=== PATIENT | female | born 1970 | race Caucasian/White ===

== ENCOUNTER 2020-03-24 20:19 | Inpatient (IN) | payer MEDICAID, OTHER ==
[~2020-03-24] VITALS: Ht 162.6 cm; Wt 110.2 kg
[2020-03-24] MEDS ORDERED: FUROSEMIDE 20 MG/2 ML VIAL IV ONE (21:00)
[2020-03-25 00:17] LABS: Basophils # (auto) 0.1 10 ^3/uL (0-0.2); Eosinophils # (auto) 0 10 ^3/uL (0-0.8); Eosinophils % (auto) 0.7 % (0.0-7.0); Hematocrit 30.5 % (36.0-46.0); Lymphocytes # (auto) 1.4 10 ^3/uL (0.4-5.4); Lymphocytes % (auto) 23.7 % (10.0-50.0); Mean Corpuscular Hemoglobin 18.3 pg (28.0-32.0); Mean Corpuscular Hgb Conc. 29.6 g/dL (32.0-36.0); Mean Corpuscular Volume 61.8 fL (80.0-100.0); Monocytes # (auto) 0.7 10 ^3/uL (0-1.3); Neutrophils # (auto) 3.8 10 ^3/uL (1.6-8.6); Neutrophils % (auto) 63.6 % (37.0-80.0); Nucleated Red Blood Cells % 0.3 %; Red Blood Cells 4.94 10^6/uL (4.0-5.20)
[2020-03-25 00:19] LABS: Red Cell Distribution Width 31.2 % (11.8-14.3)
[2020-03-25 00:35] LABS: Albumin 3.3 g/dL (3.4-5.0); Anion Gap 8 (5-15); Blood Urea Nitrogen 15 mg/dL (7-18); Calcium 8.8 mg/dL (8.5-10.1); Carbon Dioxide 28 mmol/L (21-32); Chloride 101 mmol/L (98-107); Glucose 157 mg/dL (74-106); Potassium 3.9 mmol/L (3.5-5.1); Sodium 137 mmol/L (136-145)
[2020-03-25 00:37] LABS: Alanine Aminotransferase 28 U/L (13-56); Aspartate Aminotransferase 23 U/L (15-37); BUN/Creatinine Ratio 17.2; GFR African American 88 mL/min; GFR Non-African American 73 mL/min
[2020-03-25 00:41] LABS: Alkaline Phosphatase 139 U/L (45-117); Bilirubin, Total 0.4 mg/dL (0.2-1.0); Total Protein 7.7 g/dL (6.4-8.2)
[2020-03-25 00:47] LABS: INR 0.93 (0.9-1.15); Partial Thromboplastin Time 22.3 sec (23.0-31.2)
[2020-03-25] MEDS ORDERED: MORPHINE SULFATE INJECTION 2 MG/ML SYRG IV PRN (03:00)
[2020-03-25] MEDS ORDERED: ONDANSETRON HCL 4 MG/2 ML VIAL IV PRN (03:00)
[2020-03-25] MEDS ORDERED: DEXTROSE (50%) 50ML SYRG IV PRN (03:00)
[2020-03-25] MEDS ORDERED: CARVEDILOL 12.5 MG TAB PO ONE (03:00)
[2020-03-25] MEDS ORDERED: TEMAZEPAM 15 MG CAP PO PRN (03:00)
[2020-03-25] MEDS ORDERED: NITROGLYCERIN 0.4 MG SL TAB SL PRN (03:00)
[2020-03-25] MEDS: ACETAMINOPHEN 325 MG TAB PO PRN ×2 (03:37→21:37)
[2020-03-25 05:08] LABS: Urine Bacteria FEW /hpf (None Seen); Urine Blood Negative /uL (Negative); Urine Mucus FEW (None Seen); Urine Specific Gravity 1.016 (1.001-1.035); Urine WBC 1 /hpf (0 - 5)
[2020-03-25] MEDS: InsuLIN REG 1unit/0.01ml Soln (100units/ml) SC SCH ×4 (06:27→21:38)
[2020-03-25] MEDS: ACCU-CHEK COMFORT CURVE STRIP VI SCH ×4 (06:30→21:38)
[2020-03-25] MEDS: FUROSEMIDE 40 MG TAB PO SCH ×2 (06:32→18:06)
[2020-03-25] MEDS: FAMOTIDINE 20 MG TAB PO SCH ×2 (10:49→21:37)
[2020-03-25] MEDS: CARVEDILOL 12.5 MG TAB PO SCH ×2 (10:49→21:37)
[2020-03-25] MEDS: ENOXAPARIN SOD 40 MG/0.4 ML SYRINGE SC SCH (10:49)
[2020-03-25] MEDS: amLODIPine BESYLATE 5 MG TAB PO SCH (10:49)
[2020-03-25] MEDS: ASPirin 81 mg TAB PO SCH (10:49)
[2020-03-25] MEDS ORDERED: FURO1TAB31 PO (15:34)
[2020-03-25 16:00] VITALS: BP 140/89
[2020-03-25] MEDS: ATORVASTATIN 20 MG TAB PO SCH (21:36)
[2020-03-25 22:00] VITALS: BP 165/89
[2020-03-26] VITALS: BP 142/74
[2020-03-26] MEDS: ACETAMINOPHEN 325 MG TAB PO PRN ×2 (02:42→20:10)
[2020-03-26 05:00] VITALS: BP 152/91
[2020-03-26] MEDS: FUROSEMIDE 40 MG TAB PO SCH (05:57)
[2020-03-26] MEDS: ACCU-CHEK COMFORT CURVE STRIP VI SCH ×4 (05:58→22:22)
[2020-03-26] MEDS: InsuLIN REG 1unit/0.01ml Soln (100units/ml) SC SCH ×4 (05:59→22:25)
[2020-03-26 06:34] LABS: Basophils # (auto) 0 10 ^3/uL (0-0.2); Basophils % (auto) 0.8 % (0.0-2.0); Monocytes # (auto) 0.6 10 ^3/uL (0-1.3); White Blood Cell 4.8 10^3/uL (4.4-10.8)
[2020-03-26 06:36] LABS: INR 0.96 (0.9-1.15); Partial Thromboplastin Time 23.9 sec (23.0-31.2)
[2020-03-26 06:37] LABS: Eosinophils # (auto) 0.1 10 ^3/uL (0-0.8); Eosinophils % (auto) 1.5 % (0.0-7.0); Hematocrit 28.2 % (36.0-46.0); Hemoglobin 8.4 g/dL (12.2-16.2); Lymphocytes % (auto) 20.7 % (10.0-50.0); Mean Corpuscular Hemoglobin 18.6 pg (28.0-32.0); Mean Corpuscular Hgb Conc. 29.8 g/dL (32.0-36.0); Mean Corpuscular Volume 62.3 fL (80.0-100.0); Monocytes % (auto) 11.7 % (0.0-12.0); Neutrophils # (auto) 3.2 10 ^3/uL (1.6-8.6); Neutrophils % (auto) 65.3 % (37.0-80.0); Red Blood Cells 4.52 10^6/uL (4.0-5.20)
[2020-03-26 06:48] LABS: Red Cell Distribution Width 30.1 % (11.8-14.3)
[2020-03-26 07:11] LABS: Calcium 8.3 mg/dL (8.5-10.1); Potassium 4.1 mmol/L (3.5-5.1)
[2020-03-26 07:44] LABS: Albumin 2.9 g/dL (3.4-5.0); BUN/Creatinine Ratio 30.1; Bilirubin, Total 0.5 mg/dL (0.2-1.0); Phosphorus 4.4 mg/dL (2.5-4.90)
[2020-03-26 08:32] VITALS: BP 147/85
[2020-03-26] MEDS: ASPirin 81 mg TAB PO SCH (10:22)
[2020-03-26] MEDS: FAMOTIDINE 20 MG TAB PO SCH ×2 (10:23→22:22)
[2020-03-26] MEDS: amLODIPine BESYLATE 5 MG TAB PO SCH (10:25)
[2020-03-26] MEDS: CARVEDILOL 12.5 MG TAB PO SCH ×2 (10:26→22:21)
[2020-03-26] MEDS: ENOXAPARIN SOD 40 MG/0.4 ML SYRINGE SC SCH (10:26)
[2020-03-26] MEDS ORDERED: hydrALAZINE HCL 20 MG/ML VL IV PRN (10:45)
[2020-03-26] MEDS ORDERED: DEXTROSE (50%) 50ML SYRG IV PRN (10:45)
[2020-03-26 11:00] LABS: Cholesterol 161 mg/dL (< 200)
[2020-03-26 11:03] LABS: HDL Cholesterol 54 mg/dL (40-59); LDL Cholesterol 96 mg/dL (< 100); Triglycerides 84 mg/dL (< 150)
[2020-03-26] MEDS ORDERED: ACCU-CHEK COMFORT CURVE STRIP VI SCH (11:30)
[2020-03-26 11:32] LABS: % Iron Saturation 2.4 % (15-50)
[2020-03-26] MEDS: FERROUS SULFATE 325mg EC TAB PO SCH ×2 (13:57→18:04)
[2020-03-26 16:11] VITALS: BP 151/88
[2020-03-26] MEDS ORDERED: FUROSEMIDE 20 MG/2 ML VIAL IV SCH (18:00)
[2020-03-26] MEDS ORDERED: LOSARTAN POTASSIUM 25 MG TAB PO ONE ×2 (18:15→19:30)
[2020-03-26 22:00] VITALS: BP 141/83
[2020-03-26] MEDS: ISOSORBIDE MONONITRATE IR 20 MG TAB PO SCH (22:21)
[2020-03-26] MEDS: ATORVASTATIN 20 MG TAB PO SCH (22:22)
[2020-03-27 05:00] VITALS: BP 125/78
[2020-03-27] MEDS: ACCU-CHEK COMFORT CURVE STRIP VI SCH ×4 (06:37→22:10)
[2020-03-27] MEDS: InsuLIN REG 1unit/0.01ml Soln (100units/ml) SC SCH ×4 (06:45→22:20)
[2020-03-27 07:52] VITALS: BP 149/76
[2020-03-27] MEDS: FERROUS SULFATE 325mg EC TAB PO SCH ×3 (07:57→17:53)
[2020-03-27] MEDS ORDERED: POTASSIUM CHL 20 Meq TABLET PO SCH (10:00)
[2020-03-27] MEDS: CARVEDILOL 12.5 MG TAB PO SCH ×2 (10:02→22:11)
[2020-03-27] MEDS: ASPirin 81 mg TAB PO SCH (10:02)
[2020-03-27] MEDS: LOSARTAN POTASSIUM 25 MG TAB PO SCH (10:03)
[2020-03-27] MEDS: FAMOTIDINE 20 MG TAB PO SCH ×2 (10:04→22:20)
[2020-03-27] MEDS: ISOSORBIDE MONONITRATE IR 20 MG TAB PO SCH ×2 (10:04→22:11)
[2020-03-27] MEDS: amLODIPine BESYLATE 5 MG TAB PO SCH (10:05)
[2020-03-27] MEDS: ENOXAPARIN SOD 40 MG/0.4 ML SYRINGE SC SCH (10:05)
[2020-03-27 10:51] LABS: BUN/Creatinine Ratio 29.3; Calcium 8.6 mg/dL (8.5-10.1); Magnesium 2.1 mg/dL (1.6-2.6)
[2020-03-27 11:09] LABS: Basophils # (auto) 0.1 10 ^3/uL (0-0.2); Eosinophils # (auto) 0 10 ^3/uL (0-0.8); Lymphocytes # (auto) 0.9 10 ^3/uL (0.4-5.4); Monocytes # (auto) 0.6 10 ^3/uL (0-1.3); White Blood Cell 4.9 10^3/uL (4.4-10.8)
[2020-03-27 11:12] LABS: Eosinophils % (auto) 0.8 % (0.0-7.0); Hematocrit 29.7 % (36.0-46.0); Hemoglobin 8.8 g/dL (12.2-16.2); Lymphocytes % (auto) 18.4 % (10.0-50.0); Mean Corpuscular Hemoglobin 18.4 pg (28.0-32.0); Mean Corpuscular Hgb Conc. 29.7 g/dL (32.0-36.0); Monocytes % (auto) 13.1 % (0.0-12.0); Neutrophils # (auto) 3.3 10 ^3/uL (1.6-8.6); Neutrophils % (auto) 66.7 % (37.0-80.0); Nucleated Red Blood Cells % 0.1 %; Red Blood Cells 4.79 10^6/uL (4.0-5.20)
[2020-03-27 11:20] LABS: Red Cell Distribution Width 30.4 % (11.8-14.3)
[2020-03-27] MEDS: ACETAMINOPHEN 325 MG TAB PO PRN (13:08)
[2020-03-27 15:42] VITALS: BP 124/63
[2020-03-27 15:45] LABS: Amphetamine Screen, Urine NEGATIVE (NEGATIVE); Barbiturate Scree,Urine NEGATIVE (NEGATIVE); Benzodiazephine Screen, Urine NEGATIVE (NEGATIVE); Cannabinoid Screen, Urine NEGATIVE (NEGATIVE); Cocaine Screen, Urine NEGATIVE (NEGATIVE); Opiate Scree,Urine NEGATIVE (NEGATIVE); Phencyclidine Screen, Urine NEGATIVE (NEGATIVE)
[2020-03-27 21:41] VITALS: BP 135/68
[2020-03-27] MEDS: ATORVASTATIN 20 MG TAB PO SCH (22:11)
[2020-03-28] MEDS: ACETAMINOPHEN 325 MG TAB PO PRN ×2 (01:29→19:28)
[2020-03-28 05:38] VITALS: BP 120/65
[2020-03-28] MEDS: ACCU-CHEK COMFORT CURVE STRIP VI SCH ×3 (06:09→18:08)
[2020-03-28] MEDS: InsuLIN REG 1unit/0.01ml Soln (100units/ml) SC SCH ×3 (06:09→18:09)
[2020-03-28] MEDS: FERROUS SULFATE 325mg EC TAB PO SCH ×3 (08:15→18:12)
[2020-03-28 09:14] VITALS: BP 132/79
[2020-03-28] MEDS: ASPirin 81 mg TAB PO SCH (09:26)
[2020-03-28] MEDS: CARVEDILOL 12.5 MG TAB PO SCH (09:27)
[2020-03-28] MEDS: LOSARTAN POTASSIUM 25 MG TAB PO SCH (09:28)
[2020-03-28] MEDS: amLODIPine BESYLATE 5 MG TAB PO SCH (09:28)
[2020-03-28] MEDS: ISOSORBIDE MONONITRATE IR 20 MG TAB PO SCH (09:28)
[2020-03-28] MEDS: FAMOTIDINE 20 MG TAB PO SCH (09:29)
[2020-03-28] MEDS: ENOXAPARIN SOD 40 MG/0.4 ML SYRINGE SC SCH (09:31)
[2020-03-28] MEDS ORDERED: LOS25T PO (14:23)
[2020-03-28] MEDS ORDERED: ASPI1CHW15 PO (14:23)
[2020-03-28] MEDS ORDERED: ATOR20TA50 PO (14:23)
[2020-03-28] MEDS ORDERED: FER325T PO (14:23)
[2020-03-28] MEDS ORDERED: METO25TA93 PO (14:24)
[2020-03-28] MEDS ORDERED: AMLO-496 PO (14:25)
[2020-03-28] MEDS ORDERED: METF-370 PO (14:35)
[2020-03-28 15:40] VITALS: BP 125/68
[2020-03-28] MEDS ORDERED: FURO20TA3 PO (16:05)
[2020-03-28 16:55] VITALS: BP 125/68
[2020-03-28] MEDS ORDERED: MAGNESIUM OXIDE 400 MG TAB PO SCH (22:00)
[2020-03-29] MEDS ORDERED: METOPROLOL SUCCINATE XL 50 MG TAB PO SCH (10:00)
== END 2020-03-28 20:10 | disposition home or self-care (01) | DRG 199 ==
LOC: ER 20:19 → TELE 20:20 → TELE-EAST 03-25 14:15
PROVIDERS: ADMIT Nurse Practitioner; ATTEND Internal Medicine Nephrology
DX: I16.1 Hypertensive emergency (principal); I50.31 Acute diastolic (congestive) heart failure; I47.2 Ventricular tachycardia; E66.01 Morbid (severe) obesity due to excess calories; D50.9 Iron deficiency anemia, unspecified; E78.5 Hyperlipidemia, unspecified; I27.20 Pulmonary hypertension, unspecified; E11.22 Type 2 diabetes mellitus with diabetic chronic kidney disease; F15.10 Other stimulant abuse, uncomplicated; I13.0 Hypertensive heart and chronic kidney disease with heart failure and stage 1 through stage 4 chronic kidney disease, or unspecified chronic kidney disease; Z20.822 Contact with and (suspected) exposure to COVID-19; N18.9 Chronic kidney disease, unspecified; Z79.84 Long term (current) use of oral hypoglycemic drugs; Z79.899 Other long term (current) drug therapy; Z80.1 Family history of malignant neoplasm of trachea, bronchus and lung; Z82.49 Family history of ischemic heart disease and other diseases of the circulatory system; Z86.73 Personal history of transient ischemic attack (TIA), and cerebral infarction without residual deficits; Z59.0 Homelessness; Z85.118 Personal history of other malignant neoplasm of bronchus and lung; Z91.19 Patient's noncompliance with other medical treatment and regimen; Z68.41 Body mass index [BMI] 40.0-44.9, adult; M79.671 Pain in right foot; M79.604 Pain in right leg; I63.9 Cerebral infarction, unspecified; Z86.16 Personal history of COVID-19
CPT/HCPCS: 36415; 70450; 70551; 71045; 80048; 80053; 80061; 80307; 81001; 82962; 83036; 83540; 83550; 83735; 83880; 84100; 84484; 85025; 85610; 85730; 87081; 87426; 93005; 93306; 93886; 93970; 96372; 96374; G0378; J1815

== ENCOUNTER 2020-06-02 07:14 | Emergency (ER) | payer MEDICAID ==
[~2020-06-02] VITALS: Ht 162.6 cm; Wt 108.9 kg
[~2020-06-02 07:14] MED LIST: AMLO-496 PO; ASPI1CHW15 PO; ATOR20TA50 PO; FER325T PO; FURO1TAB31 PO; LOS25T PO; METF-370 PO; METO25TA93 PO
[2020-06-02] MEDS ORDERED: cloNIDine HCL 0.1 MG TAB PO ONE (07:45)
[2020-06-02] MEDS ORDERED: ACETAMINOPHEN 325 MG TAB PO ONE ×2 (08:53→09:00)
[2020-06-02] MEDS ORDERED: amLODIPine BESYLATE 5 MG TAB PO ONE (09:00)
[2020-06-02 09:26] VITALS: BP 141/88
[2020-06-02 09:43] LABS: Basophils # (auto) 0 10 ^3/uL (0-0.2); Basophils % (auto) 1.1 % (0.0-2.0); Eosinophils # (auto) 0 10 ^3/uL (0-0.8); Hemoglobin 12.1 g/dL (12.2-16.2); Monocytes # (auto) 0.5 10 ^3/uL (0-1.3); Neutrophils # (auto) 2.8 10 ^3/uL (1.6-8.6); White Blood Cell 4.4 10^3/uL (4.4-10.8)
[2020-06-02 09:46] LABS: Eosinophils % (auto) 0.2 % (0.0-7.0); Hematocrit 38.5 % (36.0-46.0); Lymphocytes # (auto) 1.1 10 ^3/uL (0.4-5.4); Lymphocytes % (auto) 23.8 % (10.0-50.0); Mean Corpuscular Hemoglobin 22.5 pg (28.0-32.0); Mean Corpuscular Hgb Conc. 31.3 g/dL (32.0-36.0); Monocytes % (auto) 11.2 % (0.0-12.0); Neutrophils % (auto) 63.7 % (37.0-80.0); Nucleated Red Blood Cells % 0.6 %; Platelet Count (auto) 225 10^3/uL (140-450); Red Blood Cells 5.35 10^6/uL (4.0-5.20)
[2020-06-02 10:01] LABS: Chloride 105 mmol/L (98-107); Sodium 138 mmol/L (136-145)
[2020-06-02 10:10] LABS: Alanine Aminotransferase 22 U/L (13-56); Albumin 3.5 g/dL (3.4-5.0); Alkaline Phosphatase 106 U/L (45-117); Anion Gap 4 (5-15); Aspartate Aminotransferase 21 U/L (15-37); BUN/Creatinine Ratio 29.3; Bilirubin, Total 0.3 mg/dL (0.2-1.0); Blood Urea Nitrogen 17 mg/dL (7-18); Calcium 8.7 mg/dL (8.5-10.1); Carbon Dioxide 29 mmol/L (21-32); GFR African American 141 mL/min; GFR Non-African American 116 mL/min; Glucose 168 mg/dL (74-106); Total Protein 7.1 g/dL (6.4-8.2)
[2020-06-02 11:32] LABS: Urine Bacteria NONE SEEN /hpf (None Seen); Urine Blood Negative /uL (Negative); Urine Mucus FEW (None Seen); Urine Specific Gravity 1.021 (1.001-1.035); Urine WBC 1 /hpf (0 - 5)
== END 2020-06-02 11:26 | disposition home or self-care (01) ==
LOC: ER 07:14
DX: I16.1 Hypertensive emergency (principal); R07.9 Chest pain, unspecified; R51.9 Headache, unspecified; I13.0 Hypertensive heart and chronic kidney disease with heart failure and stage 1 through stage 4 chronic kidney disease, or unspecified chronic kidney disease; N18.9 Chronic kidney disease, unspecified; I50.9 Heart failure, unspecified; E78.5 Hyperlipidemia, unspecified; Z86.73 Personal history of transient ischemic attack (TIA), and cerebral infarction without residual deficits; Z59.0 Homelessness
CPT/HCPCS: 36415; 71045; 80053; 81001; 82962; 84484; 85025; 93005

== ENCOUNTER 2020-07-03 18:31 | Emergency (ER) | payer MEDICAID ==
[~2020-07-03] VITALS: Ht 162.6 cm; Wt 111.1 kg
[2020-07-03 18:36] VITALS: BP 184/122
== END 2020-07-03 21:39 | disposition home or self-care (01) ==
LOC: ER 18:39
DX: S30.0XXA Contusion of lower back and pelvis, initial encounter (principal); J44.9 Chronic obstructive pulmonary disease, unspecified; E78.00 Pure hypercholesterolemia, unspecified; I11.0 Hypertensive heart disease with heart failure; I50.9 Heart failure, unspecified; Z79.84 Long term (current) use of oral hypoglycemic drugs; Z79.82 Long term (current) use of aspirin; Z79.899 Other long term (current) drug therapy; Z86.73 Personal history of transient ischemic attack (TIA), and cerebral infarction without residual deficits; W01.0XXA Fall on same level from slipping, tripping and stumbling without subsequent striking against object, initial encounter; Y93.89 Activity, other specified; Y92.89 Other specified places as the place of occurrence of the external cause; Y99.8 Other external cause status
CPT/HCPCS: 72131

== ENCOUNTER 2020-09-26 17:46 | Inpatient (IN) | payer MEDICAID ==
[~2020-09-26] VITALS: Ht 160 cm; Wt 117.4 kg
[~2020-09-26 17:46] MED LIST changes: -AMLO-496 PO
[2020-09-26] MEDS ORDERED: LABETALOL HCL 200 MG TAB PO ONE (23:45)
[2020-09-27 00:05] LABS: Basophils # (auto) 0.1 10 ^3/uL (0-0.2); Basophils % (auto) 1.1 % (0.0-2.0); Eosinophils # (auto) 0.1 10 ^3/uL (0-0.8); Eosinophils % (auto) 0.7 % (0.0-7.0); Hematocrit 42.1 % (36.0-46.0); Hemoglobin 13.6 g/dL (12.2-16.2); Lymphocytes # (auto) 1.2 10 ^3/uL (0.4-5.4); Lymphocytes % (auto) 14.5 % (10.0-50.0); Mean Corpuscular Hemoglobin 25.7 pg (28.0-32.0); Mean Corpuscular Hgb Conc. 32.4 g/dL (32.0-36.0); Mean Corpuscular Volume 79.3 fL (80.0-100.0); Monocytes # (auto) 0.7 10 ^3/uL (0-1.3); Monocytes % (auto) 8.8 % (0.0-12.0); Neutrophils % (auto) 74.9 % (37.0-80.0); Red Blood Cells 5.31 10^6/uL (4.0-5.20); Red Cell Distribution Width 25.5 % (11.8-14.3)
[2020-09-27 00:19] LABS: Albumin 3.4 g/dL (3.4-5.0); BUN/Creatinine Ratio 20.5; Calcium 8.2 mg/dL (8.5-10.1); Potassium 3.8 mmol/L (3.5-5.1)
[2020-09-27 00:22] LABS: Bilirubin, Total 0.4 mg/dL (0.2-1.0); Total Protein 7.6 g/dL (6.4-8.2)
[2020-09-27] MEDS ORDERED: IOHEXOL 350 MG/ML 100ML IJ ONE (05:25)
[2020-09-27] MEDS ORDERED: FUROSEMIDE 40 MG/4 ML VIAL IV ONE (07:30)
[2020-09-27] MEDS ORDERED: ONDANSETRON HCL 4 MG/2 ML VIAL IV PRN (09:15)
[2020-09-27] MEDS ORDERED: DEXTROSE (50%) 50ML SYRG IV PRN (09:15)
[2020-09-27] MEDS ORDERED: MORPHINE SULF INJ 2 MG/ML SYRINGE 1ML IV PRN ×2 (09:15)
[2020-09-27] MEDS ORDERED: NITROGLYCERIN 0.4 MG SL TAB SL PRN (09:15)
[2020-09-27 09:59] LABS: Urine Bacteria NONE SEEN /hpf (None Seen); Urine Blood Negative /uL (Negative); Urine Specific Gravity 1.037 (1.001-1.035); Urine WBC 2 /hpf (0 - 5)
[2020-09-27 10:06] LABS: Amphetamine Screen, Urine NEGATIVE (NEGATIVE); Barbiturate Scree,Urine NEGATIVE (NEGATIVE); Benzodiazephine Screen, Urine NEGATIVE (NEGATIVE); Cannabinoid Screen, Urine NEGATIVE (NEGATIVE); Cocaine Screen, Urine NEGATIVE (NEGATIVE); Opiate Scree,Urine NEGATIVE (NEGATIVE); Phencyclidine Screen, Urine NEGATIVE (NEGATIVE)
[2020-09-27] MEDS: METOPROLOL TARTRATE 25 MG TAB PO SCH ×2 (10:13→21:23)
[2020-09-27] MEDS: DOCUSATE SOD 100 MG CAP PO SCH ×2 (10:13→21:46)
[2020-09-27] MEDS: InsuLIN REG 1unit/0.01ml Soln (100units/ml) SC SCH ×3 (11:23→21:46)
[2020-09-27] MEDS: ACCU-CHEK COMFORT CURVE STRIP VI SCH ×3 (11:23→21:46)
[2020-09-27] MEDS: ACETAMINOPHEN 500 MG TAB PO PRN (11:55)
[2020-09-27] MEDS ORDERED: AMLO-489 PO (14:53)
[2020-09-27 14:54] VITALS: BP 156/93
[2020-09-27] MEDS: HYDROcodone-ACET 5/325MG TAB PO PRN (16:51)
[2020-09-27 17:00] VITALS: BP 145/81
[2020-09-27] MEDS: FUROSEMIDE 20 MG/2 ML VIAL IV SCH (17:35)
[2020-09-27] MEDS: ATORVASTATIN 20 MG TAB PO SCH (21:22)
[2020-09-27 22:00] VITALS: BP 144/101
[2020-09-28 05:00] VITALS: BP 135/79
[2020-09-28] MEDS: FUROSEMIDE 20 MG/2 ML VIAL IV SCH ×2 (05:26→17:55)
[2020-09-28 05:38] LABS: Basophils # (auto) 0 10 ^3/uL (0-0.2); Eosinophils # (auto) 0.1 10 ^3/uL (0-0.8); Hemoglobin 12.3 g/dL (12.2-16.2); Lymphocytes # (auto) 1.2 10 ^3/uL (0.4-5.4); Monocytes # (auto) 0.8 10 ^3/uL (0-1.3); Red Blood Cells 4.79 10^6/uL (4.0-5.20)
[2020-09-28 05:41] LABS: Basophils % (auto) 0.4 % (0.0-2.0); Eosinophils % (auto) 1.4 % (0.0-7.0); Lymphocytes % (auto) 17.7 % (10.0-50.0); Mean Corpuscular Hemoglobin 25.6 pg (28.0-32.0); Mean Corpuscular Hgb Conc. 32.3 g/dL (32.0-36.0); Mean Corpuscular Volume 79.4 fL (80.0-100.0); Monocytes % (auto) 11.9 % (0.0-12.0); Neutrophils # (auto) 4.7 10 ^3/uL (1.6-8.6); Neutrophils % (auto) 68.6 % (37.0-80.0); White Blood Cell 6.8 10^3/uL (4.4-10.8)
[2020-09-28 05:56] LABS: Red Cell Distribution Width 25.5 % (11.8-14.3)
[2020-09-28 06:01] LABS: Potassium 4.4 mmol/L (3.5-5.1)
[2020-09-28 06:10] LABS: BUN/Creatinine Ratio 28.9; Calcium 8.3 mg/dL (8.5-10.1)
[2020-09-28] MEDS: InsuLIN REG 1unit/0.01ml Soln (100units/ml) SC SCH ×4 (06:24→21:22)
[2020-09-28] MEDS: ACCU-CHEK COMFORT CURVE STRIP VI SCH ×4 (06:33→21:22)
[2020-09-28] MEDS: HYDROcodone-ACET 5/325MG TAB PO PRN ×2 (08:01→22:56)
[2020-09-28 09:00] VITALS: BP 157/101
[2020-09-28] MEDS: DOCUSATE SOD 100 MG CAP PO SCH ×2 (09:20→21:13)
[2020-09-28] MEDS: METOPROLOL TARTRATE 25 MG TAB PO SCH ×2 (09:24→21:13)
[2020-09-28 13:00] VITALS: BP 137/85
[2020-09-28] MEDS ORDERED: cefTRIAXone 1GM/50ML D5W 50 ML IV ONE (13:45)
[2020-09-28] MEDS ORDERED: LOSARTAN POTASSIUM 25 MG TAB PO ONE (14:00)
[2020-09-28] MEDS ORDERED: cloNIDine HCL 0.1 MG TAB PO PRN (14:00)
[2020-09-28] MEDS: CLINDAMYCIN 300MG IV 50 ML IV SCH ×2 (14:30→21:13)
[2020-09-28 17:00] VITALS: BP 160/101
[2020-09-28] MEDS: FERROUS SULFATE 325mg EC TAB PO SCH (17:55)
[2020-09-28] MEDS: ACETAMINOPHEN 500 MG TAB PO PRN (21:12)
[2020-09-28] MEDS: ATORVASTATIN 20 MG TAB PO SCH (21:13)
[2020-09-28 22:00] VITALS: BP 111/61
[2020-09-29 05:00] VITALS: BP 123/63
[2020-09-29] MEDS: FUROSEMIDE 20 MG/2 ML VIAL IV SCH ×2 (05:42→17:53)
[2020-09-29] MEDS: CLINDAMYCIN 300MG IV 50 ML IV SCH (05:42)
[2020-09-29] MEDS: InsuLIN REG 1unit/0.01ml Soln (100units/ml) SC SCH ×4 (05:43→21:05)
[2020-09-29] MEDS: ACCU-CHEK COMFORT CURVE STRIP VI SCH ×4 (05:43→21:09)
[2020-09-29] MEDS: HYDROcodone-ACET 5/325MG TAB PO PRN ×3 (05:44→21:04)
[2020-09-29 06:01] LABS: Basophils # (auto) 0.1 10 ^3/uL (0-0.2); Eosinophils # (auto) 0.1 10 ^3/uL (0-0.8); Eosinophils % (auto) 1.9 % (0.0-7.0); Hemoglobin 12.4 g/dL (12.2-16.2); Mean Corpuscular Volume 79.7 fL (80.0-100.0)
[2020-09-29 06:02] LABS: Hematocrit 38.1 % (36.0-46.0); Lymphocytes # (auto) 1.2 10 ^3/uL (0.4-5.4); Lymphocytes % (auto) 19.9 % (10.0-50.0); Mean Corpuscular Hemoglobin 25.8 pg (28.0-32.0); Mean Corpuscular Hgb Conc. 32.4 g/dL (32.0-36.0); Monocytes # (auto) 0.7 10 ^3/uL (0-1.3); Monocytes % (auto) 11.7 % (0.0-12.0); Neutrophils # (auto) 3.8 10 ^3/uL (1.6-8.6); Neutrophils % (auto) 65.5 % (37.0-80.0); Red Blood Cells 4.79 10^6/uL (4.0-5.20); White Blood Cell 5.8 10^3/uL (4.4-10.8)
[2020-09-29 06:19] LABS: Albumin 2.9 g/dL (3.4-5.0); Anion Gap 3 (5-15); Blood Urea Nitrogen 22 mg/dL (7-18); Calcium 7.9 mg/dL (8.5-10.1); Carbon Dioxide 34 mmol/L (21-32); Chloride 103 mmol/L (98-107); Glucose 114 mg/dL (74-106); Potassium 4.3 mmol/L (3.5-5.1); Sodium 140 mmol/L (136-145)
[2020-09-29 06:22] LABS: BUN/Creatinine Ratio 30.1; GFR African American 108 mL/min; GFR Non-African American 89 mL/min
[2020-09-29 06:26] LABS: Red Cell Distribution Width 24.4 % (11.8-14.3)
[2020-09-29 06:27] LABS: Alanine Aminotransferase 28 U/L (13-56); Alkaline Phosphatase 103 U/L (45-117); Aspartate Aminotransferase 18 U/L (15-37); Bilirubin, Total 0.3 mg/dL (0.2-1.0); Total Protein 6.7 g/dL (6.4-8.2)
[2020-09-29] MEDS: FERROUS SULFATE 325mg EC TAB PO SCH ×3 (08:22→17:51)
[2020-09-29] MEDS ORDERED: cefTRIAXone 1GM/50ML D5W 50 ML IV SCH (09:00)
[2020-09-29 09:11] VITALS: BP 107/56
[2020-09-29] MEDS: METOPROLOL TARTRATE 25 MG TAB PO SCH ×2 (10:20→21:04)
[2020-09-29] MEDS: DOCUSATE SOD 100 MG CAP PO SCH ×2 (10:20→21:05)
[2020-09-29] MEDS: ASPirin-EC 81 mg tab PO SCH (10:20)
[2020-09-29] MEDS: LOSARTAN POTASSIUM 25 MG TAB PO SCH (10:21)
[2020-09-29 13:00] VITALS: BP 98/61
[2020-09-29] MEDS ORDERED: AMPICILLIN & SULBACTAM SODIUM 3 GM in SODIUM CHL 0.9% 100 ML IV SCH (13:00)
[2020-09-29 17:08] VITALS: BP 106/62
[2020-09-29] MEDS: ATORVASTATIN 20 MG TAB PO SCH (21:04)
[2020-09-29] MEDS: AMPICILLIN & SULBACTAM SODIUM 3 GM in SODIUM CHL 0.9% 100 ML IV SCH (21:06)
[2020-09-29 22:00] VITALS: BP 132/90
[2020-09-30] MEDS: HYDROcodone-ACET 5/325MG TAB PO PRN ×3 (02:20→19:50)
[2020-09-30] MEDS: AMPICILLIN & SULBACTAM SODIUM 3 GM in SODIUM CHL 0.9% 100 ML IV SCH ×4 (03:34→21:23)
[2020-09-30 05:00] VITALS: BP 137/85
[2020-09-30] MEDS: FUROSEMIDE 20 MG/2 ML VIAL IV SCH ×2 (05:19→18:43)
[2020-09-30] MEDS: ACCU-CHEK COMFORT CURVE STRIP VI SCH ×4 (06:05→21:24)
[2020-09-30] MEDS: InsuLIN REG 1unit/0.01ml Soln (100units/ml) SC SCH ×4 (06:21→22:02)
[2020-09-30 06:33] LABS: Potassium 4.8 mmol/L (3.5-5.1)
[2020-09-30 06:45] LABS: Albumin 2.9 g/dL (3.4-5.0); BUN/Creatinine Ratio 29.7; Bilirubin, Total 0.2 mg/dL (0.2-1.0); Calcium 8.6 mg/dL (8.5-10.1); Magnesium 2.3 mg/dL (1.6-2.6); Total Protein 6.9 g/dL (6.4-8.2)
[2020-09-30 07:32] LABS: Basophils # (auto) 0 10 ^3/uL (0-0.2); Eosinophils # (auto) 0.1 10 ^3/uL (0-0.8); Monocytes # (auto) 0.7 10 ^3/uL (0-1.3)
[2020-09-30 07:35] LABS: Basophils % (auto) 0.5 % (0.0-2.0); Eosinophils % (auto) 1.4 % (0.0-7.0); Hemoglobin 12.5 g/dL (12.2-16.2); Lymphocytes % (auto) 16.4 % (10.0-50.0); Mean Corpuscular Hemoglobin 25.6 pg (28.0-32.0); Mean Corpuscular Hgb Conc. 32.1 g/dL (32.0-36.0); Mean Corpuscular Volume 79.8 fL (80.0-100.0); Monocytes % (auto) 10.9 % (0.0-12.0); Neutrophils # (auto) 4.5 10 ^3/uL (1.6-8.6); Neutrophils % (auto) 70.8 % (37.0-80.0); Nucleated Red Blood Cells % 0.1 %; Red Blood Cells 4.89 10^6/uL (4.0-5.20); White Blood Cell 6.4 10^3/uL (4.4-10.8)
[2020-09-30 07:38] LABS: Red Cell Distribution Width 24.7 % (11.8-14.3)
[2020-09-30 08:20] VITALS: BP 131/78
[2020-09-30] MEDS: FERROUS SULFATE 325mg EC TAB PO SCH ×3 (08:23→18:43)
[2020-09-30 08:30] VITALS: BP 131/78
[2020-09-30] MEDS ORDERED: ERGOCALCIFEROL 50,000 UNIT(1.25MG) CAP PO SCH (12:00)
[2020-09-30 12:30] VITALS: BP 132/67
[2020-09-30] MEDS: METOPROLOL TARTRATE 25 MG TAB PO SCH ×2 (12:35→21:58)
[2020-09-30] MEDS: LOSARTAN POTASSIUM 25 MG TAB PO SCH (12:35)
[2020-09-30] MEDS: DOCUSATE SOD 100 MG CAP PO SCH ×2 (12:35→21:23)
[2020-09-30] MEDS: ASPirin-EC 81 mg tab PO SCH (12:36)
[2020-09-30 17:00] VITALS: BP 135/80
[2020-09-30] MEDS ORDERED: ALBUMIN 5% 250 ML IV ONE (17:00)
[2020-09-30] MEDS: ATORVASTATIN 20 MG TAB PO SCH (21:23)
[2020-09-30 22:00] VITALS: BP 132/71
[2020-10-01] MEDS: HYDROcodone-ACET 5/325MG TAB PO PRN (02:00)
[2020-10-01] MEDS: AMPICILLIN & SULBACTAM SODIUM 3 GM in SODIUM CHL 0.9% 100 ML IV SCH ×2 (04:01→09:59)
[2020-10-01 05:30] VITALS: BP 137/70
[2020-10-01] MEDS: FUROSEMIDE 20 MG/2 ML VIAL IV SCH (05:49)
[2020-10-01] MEDS: ACCU-CHEK COMFORT CURVE STRIP VI SCH ×2 (05:49→11:48)
[2020-10-01] MEDS: InsuLIN REG 1unit/0.01ml Soln (100units/ml) SC SCH ×2 (05:55→11:30)
[2020-10-01] MEDS: FERROUS SULFATE 325mg EC TAB PO SCH ×2 (08:02→12:44)
[2020-10-01 09:02] VITALS: BP 125/75
[2020-10-01] MEDS: DOCUSATE SOD 100 MG CAP PO SCH (09:59)
[2020-10-01] MEDS: ASPirin-EC 81 mg tab PO SCH (10:01)
[2020-10-01] MEDS: LOSARTAN POTASSIUM 25 MG TAB PO SCH (10:01)
[2020-10-01] MEDS: METOPROLOL TARTRATE 25 MG TAB PO SCH (10:02)
[2020-10-01] MEDS ORDERED: ERGO1CAP23 PO (11:50)
[2020-10-01] MEDS ORDERED: CLIN-203 PO (11:50)
[2020-10-01] MEDS ORDERED: METO25TA93 PO (11:55)
[2020-10-01] MEDS ORDERED: ASPI1CHW15 PO (11:55)
[2020-10-01] MEDS ORDERED: LOS25T PO (11:55)
[2020-10-01] MEDS ORDERED: FER325T PO (11:55)
[2020-10-01] MEDS ORDERED: METF-370 PO (11:55)
[2020-10-01] MEDS ORDERED: FURO1TAB31 PO (11:55)
[2020-10-01] MEDS ORDERED: ATOR20TA50 PO (11:55)
[2020-10-01 12:33] VITALS: BP 125/75
[2020-10-01 13:00] VITALS: BP 130/60
== END 2020-10-01 17:25 | disposition home or self-care (01) | DRG 194 ==
LOC: ER 17:46 → TELE 09-27 09:14 → TELE-WESTW 09-27 12:56
PROVIDERS: ADMIT Nurse Practitioner Acute Care; ATTEND Internal Medicine
DX: I11.0 Hypertensive heart disease with heart failure (principal); J96.10 Chronic respiratory failure, unspecified whether with hypoxia or hypercapnia; E11.21 Type 2 diabetes mellitus with diabetic nephropathy; L03.116 Cellulitis of left lower limb; I27.20 Pulmonary hypertension, unspecified; Z68.42 Body mass index [BMI] 45.0-49.9, adult; I50.33 Acute on chronic diastolic (congestive) heart failure; D63.8 Anemia in other chronic diseases classified elsewhere; E66.9 Obesity, unspecified; I16.9 Hypertensive crisis, unspecified; E78.5 Hyperlipidemia, unspecified; Z59.0 Homelessness; Z79.84 Long term (current) use of oral hypoglycemic drugs; Z79.899 Other long term (current) drug therapy; Z80.1 Family history of malignant neoplasm of trachea, bronchus and lung; Z82.49 Family history of ischemic heart disease and other diseases of the circulatory system; Z86.73 Personal history of transient ischemic attack (TIA), and cerebral infarction without residual deficits; Z90.49 Acquired absence of other specified parts of digestive tract; Z91.14 Patient's other noncompliance with medication regimen; Z20.822 Contact with and (suspected) exposure to COVID-19; Z71.3 Dietary counseling and surveillance
CPT/HCPCS: 36415; 36600; 71275; 76705; 80048; 80053; 80307; 81001; 82306; 82805; 82962; 83036; 83735; 83880; 84443; 84484; 85025; 85379; 86141; 87040; 87426; 93306; 93971; 96374; G0378; J0696; J1815; J3490

== ENCOUNTER 2021-02-28 18:55 | Emergency (ER) | payer MEDICAID ==
[~2021-02-28] VITALS: Ht 162.6 cm; Wt 113.4 kg
[~2021-02-28 18:55] MED LIST changes: +CLIN-203 PO; +ERGO1CAP23 PO
[2021-02-28] MEDS ORDERED: cloNIDine HCL 0.1 MG TAB PO ONE (19:15)
[2021-02-28 20:03] LABS: Basophils # (auto) 0.1 10 ^3/uL (0-0.2); Basophils % (auto) 1.1 % (0.0-2.0); Eosinophils # (auto) 0.1 10 ^3/uL (0-0.8); Eosinophils % (auto) 1.7 % (0.0-7.0); Hematocrit 47.3 % (36.0-46.0); Hemoglobin 15.5 g/dL (12.2-16.2); Lymphocytes # (auto) 1.2 10 ^3/uL (0.4-5.4); Mean Corpuscular Hemoglobin 28.6 pg (28.0-32.0); Mean Corpuscular Hgb Conc. 32.9 g/dL (32.0-36.0); Monocytes # (auto) 0.6 10 ^3/uL (0-1.3); Monocytes % (auto) 9.4 % (0.0-12.0); Neutrophils % (auto) 67.8 % (37.0-80.0); Red Blood Cells 5.43 10^6/uL (4.0-5.20); Red Cell Distribution Width 14.8 % (11.8-14.3); White Blood Cell 5.9 10^3/uL (4.4-10.8)
[2021-02-28 20:15] LABS: Albumin 3.8 g/dL (3.4-5.0); Calcium 8.8 mg/dL (8.5-10.1); Potassium 3.9 mmol/L (3.5-5.1)
[2021-02-28 20:18] LABS: BUN/Creatinine Ratio 15.6; Bilirubin, Total 0.4 mg/dL (0.2-1.0)
[2021-02-28 22:40] VITALS: BP 149/98
== END 2021-02-28 22:53 | disposition home or self-care (01) ==
LOC: ER 18:58
DX: J06.9 Acute upper respiratory infection, unspecified (principal); I13.0 Hypertensive heart and chronic kidney disease with heart failure and stage 1 through stage 4 chronic kidney disease, or unspecified chronic kidney disease; N18.9 Chronic kidney disease, unspecified; I50.9 Heart failure, unspecified; E78.5 Hyperlipidemia, unspecified; Z86.73 Personal history of transient ischemic attack (TIA), and cerebral infarction without residual deficits; Z90.49 Acquired absence of other specified parts of digestive tract
CPT/HCPCS: 36415; 71045; 80053; 83880; 85025; 93005

== ENCOUNTER 2021-03-25 13:42 | Emergency (ER) | payer MEDICAID ==
[~2021-03-25] VITALS: Ht 162.6 cm; Wt 117.9 kg
[2021-03-25 14:21] LABS: Urine Bacteria FEW /hpf (None Seen); Urine Blood Negative /uL (Negative); Urine Specific Gravity 1.028 (1.001-1.035); Urine WBC 2 /hpf (0 - 5)
[2021-03-25] MEDS ORDERED: SODIUM CHLORIDE 0.9% 1,000 ML IV ONE (15:15)
[2021-03-25] MEDS ORDERED: SODIUM CHLORIDE 0.9% 1,000 ML IVB ONE (15:15)
[2021-03-25 15:41] LABS: Basophils # (auto) 0.1 10 ^3/uL (0-0.2); Basophils % (auto) 0.9 % (0.0-2.0); Eosinophils # (auto) 0.1 10 ^3/uL (0-0.8); Eosinophils % (auto) 0.7 % (0.0-7.0); Hematocrit 41.5 % (36.0-46.0); Hemoglobin 13.9 g/dL (12.2-16.2); Lymphocytes # (auto) 1.2 10 ^3/uL (0.4-5.4); Lymphocytes % (auto) 13.5 % (10.0-50.0); Mean Corpuscular Hemoglobin 29.2 pg (28.0-32.0); Mean Corpuscular Hgb Conc. 33.6 g/dL (32.0-36.0); Mean Corpuscular Volume 87.1 fL (80.0-100.0); Monocytes # (auto) 0.7 10 ^3/uL (0-1.3); Monocytes % (auto) 7.7 % (0.0-12.0); Neutrophils # (auto) 6.6 10 ^3/uL (1.6-8.6); Neutrophils % (auto) 77.2 % (37.0-80.0); Nucleated Red Blood Cells % 0.1 %; Red Blood Cells 4.77 10^6/uL (4.0-5.20); Red Cell Distribution Width 14.8 % (11.8-14.3); White Blood Cell 8.6 10^3/uL (4.4-10.8)
[2021-03-25 16:00] LABS: Albumin 3.4 g/dL (3.4-5.0); BUN/Creatinine Ratio 14.5; Calcium 9.1 mg/dL (8.5-10.1); Magnesium 1.8 mg/dL (1.6-2.6); Potassium 4.2 mmol/L (3.5-5.1)
[2021-03-25 16:02] LABS: Bilirubin, Total 0.3 mg/dL (0.2-1.0)
[2021-03-25] MEDS ORDERED: SPIRONOLACTONE 25 MG TAB PO ONE (17:15)
[2021-03-25] MEDS ORDERED: FUROSEMIDE 40 MG/4 ML VIAL IV ONE (17:15)
[2021-03-25] MEDS ORDERED: FUROSEMIDE 40 MG TAB ONE (17:43)
[2021-03-25] MEDS ORDERED: FUROSEMIDE 20 MG TAB PO ONE (17:45)
[2021-03-25 18:11] VITALS: BP 148/85
== END 2021-03-25 18:24 | disposition home or self-care (01) ==
LOC: ER 13:42
DX: I10 Essential (primary) hypertension (principal); R09.89 Other specified symptoms and signs involving the circulatory and respiratory systems; R74.01 Elevation of levels of liver transaminase levels; E46 Unspecified protein-calorie malnutrition; E66.01 Morbid (severe) obesity due to excess calories; I13.0 Hypertensive heart and chronic kidney disease with heart failure and stage 1 through stage 4 chronic kidney disease, or unspecified chronic kidney disease; E11.22 Type 2 diabetes mellitus with diabetic chronic kidney disease; N18.9 Chronic kidney disease, unspecified; I50.9 Heart failure, unspecified; E78.5 Hyperlipidemia, unspecified; Z68.41 Body mass index [BMI] 40.0-44.9, adult; Z86.2 Personal history of diseases of the blood and blood-forming organs and certain disorders involving the immune mechanism; Z90.49 Acquired absence of other specified parts of digestive tract; Z59.00 Homelessness unspecified; Z79.82 Long term (current) use of aspirin; Z79.899 Other long term (current) drug therapy; Z79.2 Long term (current) use of antibiotics
CPT/HCPCS: 36415; 71046; 80053; 81001; 83735; 83880; 84443; 85025; 93005

== ENCOUNTER 2021-05-19 19:34 | Emergency (ER) | payer MEDICAID ==
[~2021-05-19] VITALS: Ht 162.6 cm; Wt 122.5 kg
[2021-05-19 20:38] LABS: Basophils # (auto) 0.1 10 ^3/uL (0-0.2); Basophils % (auto) 0.8 % (0.0-2.0); Eosinophils # (auto) 0 10 ^3/uL (0-0.8); Eosinophils % (auto) 0.2 % (0.0-7.0); Hematocrit 41.5 % (36.0-46.0); Hemoglobin 13.7 g/dL (12.2-16.2); Lymphocytes # (auto) 1.4 10 ^3/uL (0.4-5.4); Lymphocytes % (auto) 19.4 % (10.0-50.0); Mean Corpuscular Hemoglobin 27.9 pg (28.0-32.0); Mean Corpuscular Volume 84.6 fL (80.0-100.0); Monocytes # (auto) 0.5 10 ^3/uL (0-1.3); Monocytes % (auto) 7.6 % (0.0-12.0); Nucleated Red Blood Cells % 0.2 %
[2021-05-19 20:55] LABS: Albumin 3.7 g/dL (3.4-5.0); BUN/Creatinine Ratio 13.8; Calcium 9.1 mg/dL (8.5-10.1); Magnesium 2.3 mg/dL (1.6-2.6); Potassium 4.1 mmol/L (3.5-5.1)
[2021-05-19 20:57] LABS: Bilirubin, Total 0.5 mg/dL (0.2-1.0); Total Protein 7.8 g/dL (6.4-8.2)
[2021-05-19 22:46] LABS: Urine Bacteria NONE SEEN /hpf (None Seen); Urine Blood Negative /uL (Negative); Urine Specific Gravity 1.017 (1.001-1.035); Urine WBC 1 /hpf (0 - 5)
[2021-05-20] MEDS ORDERED: IODIXANOL 320MG/ML 100ML BTL IV ONE (00:22)
[2021-05-20] MEDS ORDERED: ONDANSETRON HCL 4 MG/2 ML VIAL IV ONE (00:30)
[2021-05-20 00:55] LABS: Albumin 3.4 g/dL (3.4-5.0); BUN/Creatinine Ratio 13.6; Calcium 8.7 mg/dL (8.5-10.1)
[2021-05-20 01:00] LABS: Bilirubin, Total 0.5 mg/dL (0.2-1.0); Total Protein 7.3 g/dL (6.4-8.2)
[2021-05-20 01:13] LABS: Basophils # (auto) 0 10 ^3/uL (0-0.2); Basophils % (auto) 0.7 % (0.0-2.0); Eosinophils # (auto) 0 10 ^3/uL (0-0.8); Eosinophils % (auto) 0.1 % (0.0-7.0); Hematocrit 38.2 % (36.0-46.0); Hemoglobin 12.8 g/dL (12.2-16.2); Lymphocytes # (auto) 1.5 10 ^3/uL (0.4-5.4); Lymphocytes % (auto) 21.4 % (10.0-50.0); Mean Corpuscular Hemoglobin 28.2 pg (28.0-32.0); Mean Corpuscular Hgb Conc. 33.4 g/dL (32.0-36.0); Mean Corpuscular Volume 84.4 fL (80.0-100.0); Monocytes # (auto) 0.6 10 ^3/uL (0-1.3); Monocytes % (auto) 9.3 % (0.0-12.0); Neutrophils # (auto) 4.8 10 ^3/uL (1.6-8.6); Neutrophils % (auto) 68.5 % (37.0-80.0); Red Blood Cells 4.53 10^6/uL (4.0-5.20); White Blood Cell 6.9 10^3/uL (4.4-10.8)
[2021-05-20 01:34] LABS: Lactic Acid w/Reflex 2.2 mmol/L (0.4-2.0)
[2021-05-20] MEDS ORDERED: METO25TA93 PO (04:29)
[2021-05-20] MEDS ORDERED: FURO1TAB33 PO (04:29)
[2021-05-20] MEDS ORDERED: KETOROLAC TROMETH 30 MG/ML 1ML VIAL IV ONE (04:45)
[2021-05-20 04:49] VITALS: BP 147/89
== END 2021-05-20 05:54 | disposition home or self-care (01) ==
LOC: ER 19:36
DX: E11.22 Type 2 diabetes mellitus with diabetic chronic kidney disease (principal); I13.0 Hypertensive heart and chronic kidney disease with heart failure and stage 1 through stage 4 chronic kidney disease, or unspecified chronic kidney disease; N18.9 Chronic kidney disease, unspecified; I50.89 Other heart failure; Z90.49 Acquired absence of other specified parts of digestive tract; Z59.00 Homelessness unspecified
CPT/HCPCS: 36415; 71045; 74177; 80053; 81001; 81025; 83605; 83690; 83735; 83880; 84484; 84702; 85025; 93005; 96374; 99285; J1885; Q9967

== ENCOUNTER 2021-06-17 15:12 | Emergency (ER) | payer MEDICAID ==
[~2021-06-17] VITALS: Ht 162.6 cm; Wt 122.5 kg
[~2021-06-17 15:12] MED LIST changes: +FURO1TAB33 PO
[2021-06-17 15:52] LABS: Basophils # (auto) 0.1 10 ^3/uL (0-0.2); Basophils % (auto) 0.9 % (0.0-2.0); Eosinophils # (auto) 0 10 ^3/uL (0-0.8); Eosinophils % (auto) 0.2 % (0.0-7.0); Hematocrit 42.1 % (36.0-46.0); Hemoglobin 13.7 g/dL (12.2-16.2); Lymphocytes # (auto) 1.1 10 ^3/uL (0.4-5.4); Lymphocytes % (auto) 18.2 % (10.0-50.0); Mean Corpuscular Hemoglobin 27.3 pg (28.0-32.0); Mean Corpuscular Hgb Conc. 32.6 g/dL (32.0-36.0); Mean Corpuscular Volume 83.9 fL (80.0-100.0); Monocytes # (auto) 0.8 10 ^3/uL (0-1.3); Monocytes % (auto) 12.7 % (0.0-12.0); Neutrophils # (auto) 4.2 10 ^3/uL (1.6-8.6); Nucleated Red Blood Cells % 0.2 %; Red Blood Cells 5.01 10^6/uL (4.0-5.20); Red Cell Distribution Width 14.5 % (11.8-14.3); White Blood Cell 6.1 10^3/uL (4.4-10.8)
[2021-06-17 16:11] LABS: Albumin 3.6 g/dL (3.4-5.0); BUN/Creatinine Ratio 17.3; Calcium 9.4 mg/dL (8.5-10.1)
[2021-06-17 16:14] LABS: Bilirubin, Total 0.3 mg/dL (0.2-1.0); Total Protein 7.6 g/dL (6.4-8.2)
[2021-06-17] MEDS ORDERED: KETOROLAC TROMETH 30 MG/ML 1ML VIAL IV ONE (21:45)
[2021-06-17] MEDS ORDERED: AZIT250T9 PO (21:58)
[2021-06-17] MEDS ORDERED: SPIR25TA8 PO (21:58)
[2021-06-17] MEDS ORDERED: PERCOT PO (21:58)
[2021-06-17 22:00] VITALS: BP 214/118
== END 2021-06-17 22:17 | disposition home or self-care (01) ==
LOC: ER 15:12
DX: I13.0 Hypertensive heart and chronic kidney disease with heart failure and stage 1 through stage 4 chronic kidney disease, or unspecified chronic kidney disease (principal); E11.22 Type 2 diabetes mellitus with diabetic chronic kidney disease; I50.9 Heart failure, unspecified; N18.9 Chronic kidney disease, unspecified; E78.5 Hyperlipidemia, unspecified; Z86.2 Personal history of diseases of the blood and blood-forming organs and certain disorders involving the immune mechanism; Z90.49 Acquired absence of other specified parts of digestive tract
CPT/HCPCS: 36415; 71045; 80053; 84484; 85025; 93005; 96374; 99285; J1885

== ENCOUNTER 2021-08-16 15:21 | Inpatient (IN) | payer MEDICAID ==
[~2021-08-16] VITALS: Ht 162.6 cm; Wt 129.5 kg
[~2021-08-16 15:21] MED LIST changes: +AZIT250T9 PO; +PERCOT PO; +SPIR25TA8 PO
[2021-08-16 16:30] LABS: Urine Bacteria FEW /hpf (None Seen); Urine Blood Negative /uL (Negative); Urine Specific Gravity 1.029 (1.001-1.035); Urine WBC 1 /hpf (0 - 5)
[2021-08-16 23:07] LABS: Basophils # (auto) 0.1 10 ^3/uL (0-0.2); Eosinophils # (auto) 0.1 10 ^3/uL (0-0.8); Eosinophils % (auto) 0.8 % (0.0-7.0); Hematocrit 45.3 % (36.0-46.0); Monocytes # (auto) 0.6 10 ^3/uL (0-1.3); Monocytes % (auto) 8.3 % (0.0-12.0); Nucleated Red Blood Cells % 0.1 %
[2021-08-16 23:09] LABS: Basophils % (auto) 0.7 % (0.0-2.0); Hemoglobin 14.3 g/dL (12.2-16.2); Lymphocytes # (auto) 1.5 10 ^3/uL (0.4-5.4); Lymphocytes % (auto) 20.8 % (10.0-50.0); Mean Corpuscular Hemoglobin 25.7 pg (28.0-32.0); Mean Corpuscular Hgb Conc. 31.5 g/dL (32.0-36.0); Mean Corpuscular Volume 81.5 fL (80.0-100.0); Neutrophils # (auto) 5.1 10 ^3/uL (1.6-8.6); Neutrophils % (auto) 69.4 % (37.0-80.0); Red Blood Cells 5.56 10^6/uL (4.0-5.20); Red Cell Distribution Width 16.4 % (11.8-14.3); White Blood Cell 7.3 10^3/uL (4.4-10.8)
[2021-08-16 23:28] LABS: Albumin 3.5 g/dL (3.4-5.0); BUN/Creatinine Ratio 15.2; Calcium 8.8 mg/dL (8.5-10.1); Lactic Acid w/Reflex 2.6 mmol/L (0.4-2.0); Potassium 3.7 mmol/L (3.5-5.1)
[2021-08-16 23:31] LABS: Bilirubin, Total 0.5 mg/dL (0.2-1.0); Total Protein 7.6 g/dL (6.4-8.2)
[2021-08-17] VITALS (7 sets, daily range): BP systolic 111–187; BP diastolic 62–113
[2021-08-17] MEDS ORDERED: PANTOPRAZOLE 40 MG/10 ML VIAL INJ IV ONE (00:45)
[2021-08-17] MEDS ORDERED: DEXTROSE (50%) 50ML SYRG IV PRN (00:45)
[2021-08-17] MEDS ORDERED: ONDANSETRON HCL 4 MG/2 ML VIAL IV PRN (00:45)
[2021-08-17] MEDS ORDERED: SODIUM CHLORIDE 0.9% 1,000 ML IV SCH ×2 (00:45→14:30)
[2021-08-17 01:14] LABS: Hematocrit 43.3 % (36.0-46.0); Hemoglobin 13.9 g/dL (12.2-16.2)
[2021-08-17 01:48] LABS: INR 0.96 (0.9-1.15); Partial Thromboplastin Time 25.6 sec (23.6-33.0)
[2021-08-17] MEDS ORDERED: HYDROcodone-ACET 5/325MG TAB PO ONE (02:45)
[2021-08-17] MEDS: ACCU-CHEK COMFORT CURVE STRIP VI SCH ×4 (06:08→23:56)
[2021-08-17] MEDS: InsuLIN REG 1unit/0.01ml Soln (100units/ml) SC SCH ×3 (06:10→18:28)
[2021-08-17] MEDS: PANTOPRAZOLE 40 MG/10 ML VIAL INJ IV SCH (09:36)
[2021-08-17] MEDS: hydrALAZINE HCL 20 MG/ML VL IV PRN ×2 (12:39→18:29)
[2021-08-17] MEDS ORDERED: LOSARTAN POTASSIUM 25 MG TAB PO ONE ×2 (14:30→17:00)
[2021-08-17 17:20] LABS: Alcohol, Urine < 3.0 mg/dL (0-10); Amphetamine Screen, Urine NEGATIVE (NEGATIVE); Barbiturate Scree,Urine NEGATIVE (NEGATIVE); Benzodiazephine Screen, Urine NEGATIVE (NEGATIVE); Cannabinoid Screen, Urine NEGATIVE (NEGATIVE); Cocaine Screen, Urine NEGATIVE (NEGATIVE); Opiate Scree,Urine NEGATIVE (NEGATIVE); Phencyclidine Screen, Urine NEGATIVE (NEGATIVE)
[2021-08-17] MEDS ORDERED: ACETAMINOPHEN 500 MG TAB PO ONE (18:45)
[2021-08-17] MEDS ORDERED: CARV25TA55 PO (19:59)
[2021-08-17] MEDS ORDERED: FURO40TA4 PO (19:59)
[2021-08-17] MEDS: METOPROLOL TARTRATE 25 MG TAB PO SCH (21:48)
[2021-08-18] MEDS: InsuLIN REG 1unit/0.01ml Soln (100units/ml) SC SCH ×4 (00:06→18:24)
[2021-08-18] MEDS ORDERED: GABA600T PO (00:21)
[2021-08-18 05:00] VITALS: BP 144/98
[2021-08-18] MEDS: ACCU-CHEK COMFORT CURVE STRIP VI SCH ×3 (05:56→18:23)
[2021-08-18 06:51] LABS: Basophils # (auto) 0.1 10 ^3/uL (0-0.2); Eosinophils # (auto) 0.1 10 ^3/uL (0-0.8); Eosinophils % (auto) 1.1 % (0.0-7.0); Mean Corpuscular Hemoglobin 26.9 pg (28.0-32.0); Mean Corpuscular Volume 82.9 fL (80.0-100.0); Monocytes # (auto) 0.7 10 ^3/uL (0-1.3); Monocytes % (auto) 8.3 % (0.0-12.0); Red Cell Distribution Width 16.4 % (11.8-14.3)
[2021-08-18 06:55] LABS: Basophils % (auto) 1.1 % (0.0-2.0); Hematocrit 40.3 % (36.0-46.0); Hemoglobin 13.1 g/dL (12.2-16.2); Lymphocytes # (auto) 1.5 10 ^3/uL (0.4-5.4); Lymphocytes % (auto) 16.3 % (10.0-50.0); Mean Corpuscular Hgb Conc. 32.5 g/dL (32.0-36.0); Neutrophils # (auto) 6.6 10 ^3/uL (1.6-8.6); Neutrophils % (auto) 73.2 % (37.0-80.0); Nucleated Red Blood Cells % 0.2 %; Red Blood Cells 4.87 10^6/uL (4.0-5.20)
[2021-08-18 07:13] LABS: Albumin 3.2 g/dL (3.4-5.0); Calcium 8.3 mg/dL (8.5-10.1); Magnesium 2.1 mg/dL (1.6-2.6); Potassium 4.2 mmol/L (3.5-5.1)
[2021-08-18 07:17] LABS: BUN/Creatinine Ratio 13.7; Bilirubin, Total 0.3 mg/dL (0.2-1.0); Total Protein 7.2 g/dL (6.4-8.2)
[2021-08-18 08:00] VITALS: BP 148/69
[2021-08-18 09:00] VITALS: BP 148/69
[2021-08-18] MEDS ORDERED: FUROSEMIDE 40 MG/4 ML VIAL IV ONE (09:45)
[2021-08-18] MEDS: LOSARTAN POTASSIUM 25 MG TAB PO SCH (09:50)
[2021-08-18] MEDS: METOPROLOL TARTRATE 25 MG TAB PO SCH ×2 (09:50→21:55)
[2021-08-18] MEDS: PANTOPRAZOLE 40 MG/10 ML VIAL INJ IV SCH (09:50)
[2021-08-18] MEDS ORDERED: CHOLECALCIFEROL (VITD3) 2,000 UNIT CAP/TAB PO ONE (12:30)
[2021-08-18 13:00] VITALS: BP 142/85
[2021-08-18] MEDS ORDERED: GOLYTELY 4L KIT PO ONE (16:00)
[2021-08-18 16:58] VITALS: BP 143/100
[2021-08-18] MEDS: FUROSEMIDE 40 MG/4 ML VIAL IV SCH (17:43)
[2021-08-18] MEDS ORDERED: GABAPENTIN 300 MG CAP PO ONE (21:00)
[2021-08-18] MEDS: INSULIN LANTUS (GLARGINE) 1 /0.01ml (100units/ml) SC SCH (21:55)
[2021-08-18] MEDS: ATORVASTATIN 20 MG TAB PO SCH (21:55)
[2021-08-18 22:00] VITALS: BP 166/115
[2021-08-19] VITALS (7 sets, daily range): BP systolic 116–157; BP diastolic 66–86
[2021-08-19] MEDS: ACCU-CHEK COMFORT CURVE STRIP VI SCH ×5 (00:21→22:54)
[2021-08-19] MEDS: InsuLIN REG 1unit/0.01ml Soln (100units/ml) SC SCH ×5 (00:26→22:53)
[2021-08-19] MEDS: MORPHINE SULFATE INJ 2 MG/ml SYRG IV PRN ×3 (02:57→20:27)
[2021-08-19] MEDS: FUROSEMIDE 40 MG/4 ML VIAL IV SCH ×2 (05:54→17:49)
[2021-08-19] MEDS ORDERED: fentaNYL CITRATE 100 MCG/2 ML VL ONE (09:10)
[2021-08-19] MEDS ORDERED: ONDANSETRON HCL 4 MG/2 ML VIAL IV PRN (09:15)
[2021-08-19] MEDS ORDERED: MIDAZOLAM HCL 2MG/2ML 2ml VIAL (1mg/ml) ONE (09:15)
[2021-08-19] MEDS ORDERED: PROPOFOL 10 MG/ML 20 ML IV ONE (09:38)
[2021-08-19] MEDS: PANTOPRAZOLE 40 MG/10 ML VIAL INJ IV SCH (10:40)
[2021-08-19] MEDS: LOSARTAN POTASSIUM 25 MG TAB PO SCH (10:41)
[2021-08-19] MEDS: METOPROLOL TARTRATE 25 MG TAB PO SCH ×2 (10:41→21:56)
[2021-08-19] MEDS: CHOLECALCIFEROL (VITD3) 2,000 UNIT CAP/TAB PO SCH (10:42)
[2021-08-19] MEDS ORDERED: FURO1TAB31 PO (14:46)
[2021-08-19] MEDS ORDERED: LOS25T PO (14:46)
[2021-08-19] MEDS ORDERED: CARV25TA55 PO (14:46)
[2021-08-19] MEDS ORDERED: METF-370 PO (14:46)
[2021-08-19] MEDS ORDERED: ATOR20TA50 PO (14:46)
[2021-08-19] MEDS: ATORVASTATIN 20 MG TAB PO SCH (21:55)
[2021-08-19] MEDS: INSULIN LANTUS (GLARGINE) 1 /0.01ml (100units/ml) SC SCH (22:51)
[2021-08-20] MEDS: MORPHINE SULFATE INJ 2 MG/ml SYRG IV PRN ×2 (02:53→08:35)
[2021-08-20 05:00] VITALS: BP 126/68
[2021-08-20] MEDS: ACCU-CHEK COMFORT CURVE STRIP VI SCH ×2 (05:34→14:06)
[2021-08-20] MEDS: InsuLIN REG 1unit/0.01ml Soln (100units/ml) SC SCH ×2 (05:42→12:14)
[2021-08-20] MEDS: FUROSEMIDE 40 MG/4 ML VIAL IV SCH (05:44)
[2021-08-20] MEDS: PANTOPRAZOLE 40 MG/10 ML VIAL INJ IV SCH (08:41)
[2021-08-20] MEDS: LOSARTAN POTASSIUM 25 MG TAB PO SCH (08:42)
[2021-08-20] MEDS: CHOLECALCIFEROL (VITD3) 2,000 UNIT CAP/TAB PO SCH (08:43)
[2021-08-20] MEDS: METOPROLOL TARTRATE 25 MG TAB PO SCH (08:43)
[2021-08-20 08:52] VITALS: BP 155/84
[2021-08-20 12:51] VITALS: BP 156/91
[2021-08-20 14:17] VITALS: BP 130/85
[2021-08-20] MEDS ORDERED: GABAPENTIN 300 MG CAP PO ONE (15:00)
[2021-08-20] MEDS ORDERED: FUROSEMIDE 40 MG TAB PO SCH (18:00)
[2021-08-20] MEDS ORDERED: GABAPENTIN 300 MG CAP PO SCH (22:00)
== END 2021-08-20 15:43 | disposition home or self-care (01) | DRG 254 ==
LOC: ER 15:21 → OVERFLOW 08-17 00:33 → WEST WING 08-17 03:18 → TELE-WESTW 08-18 10:11
PROVIDERS: ADMIT Nurse Practitioner; ATTEND Internal Medicine
PROC: 0DBL8ZZ Excision of Transverse Colon, Via Natural or Artificial Opening Endoscopic (ICD-10-PCS; principal; 2021-08-19 09:12)
DX: K64.8 Other hemorrhoids (principal); I50.33 Acute on chronic diastolic (congestive) heart failure; E11.22 Type 2 diabetes mellitus with diabetic chronic kidney disease; K76.0 Fatty (change of) liver, not elsewhere classified; D64.9 Anemia, unspecified; E55.9 Vitamin D deficiency, unspecified; E66.01 Morbid (severe) obesity due to excess calories; K63.5 Polyp of colon; Z20.822 Contact with and (suspected) exposure to COVID-19; E78.5 Hyperlipidemia, unspecified; I13.0 Hypertensive heart and chronic kidney disease with heart failure and stage 1 through stage 4 chronic kidney disease, or unspecified chronic kidney disease; N18.9 Chronic kidney disease, unspecified; Z79.84 Long term (current) use of oral hypoglycemic drugs; Z80.0 Family history of malignant neoplasm of digestive organs; Z68.42 Body mass index [BMI] 45.0-49.9, adult; Z80.1 Family history of malignant neoplasm of trachea, bronchus and lung; Z82.49 Family history of ischemic heart disease and other diseases of the circulatory system; Z83.3 Family history of diabetes mellitus; Z86.73 Personal history of transient ischemic attack (TIA), and cerebral infarction without residual deficits; Z90.49 Acquired absence of other specified parts of digestive tract; Z91.19 Patient's noncompliance with other medical treatment and regimen
CPT/HCPCS: 36415; 36600; 71045; 74176; 80053; 80061; 80307; 81001; 82270; 82306; 82805; 82962; 83036; 83605; 83735; 83880; 84132; 84443; 84484; 85014; 85018; 85025; 85384; 85610; 85730; 86850; 86900; 86901; 93306; 93970; 96361; 96374; C9113; G0378; J1815; J2250; J2704

== ENCOUNTER 2021-09-21 18:50 | Inpatient (IN) | payer MEDICAID ==
[~2021-09-21] VITALS: Ht 162.6 cm; Wt 124.4 kg
[~2021-09-21 18:50] MED LIST changes: -ATOR20TA50 PO; +CARV25TA55 PO; +FURO40TA4 PO; +GABA600T PO; -LOS25T PO; -METF-370 PO
[2021-09-21 19:52] LABS: Basophils # (auto) 0.1 10 ^3/uL (0-0.2); Basophils % (auto) 1.1 % (0.0-2.0); Eosinophils # (auto) 0 10 ^3/uL (0-0.8); Eosinophils % (auto) 0.6 % (0.0-7.0); Hematocrit 42.3 % (36.0-46.0); Hemoglobin 13.3 g/dL (12.2-16.2); Lymphocytes # (auto) 1.4 10 ^3/uL (0.4-5.4); Lymphocytes % (auto) 18.7 % (10.0-50.0); Mean Corpuscular Hemoglobin 25.6 pg (28.0-32.0); Mean Corpuscular Hgb Conc. 31.4 g/dL (32.0-36.0); Mean Corpuscular Volume 81.4 fL (80.0-100.0); Monocytes # (auto) 0.6 10 ^3/uL (0-1.3); Monocytes % (auto) 7.6 % (0.0-12.0); Neutrophils # (auto) 5.4 10 ^3/uL (1.6-8.6); Nucleated Red Blood Cells % 0.1 %; Red Cell Distribution Width 16.6 % (11.8-14.3); White Blood Cell 7.5 10^3/uL (4.4-10.8)
[2021-09-21 20:08] LABS: Albumin 3.3 g/dL (3.4-5.0); Calcium 8.7 mg/dL (8.5-10.1); Magnesium 2.2 mg/dL (1.6-2.6); Potassium 3.9 mmol/L (3.5-5.1)
[2021-09-21 20:09] LABS: INR 0.92 (0.9-1.15); Partial Thromboplastin Time 25.7 sec (24.6-33.4)
[2021-09-21 20:11] LABS: BUN/Creatinine Ratio 15.4; Bilirubin, Total 0.4 mg/dL (0.2-1.0); Total Protein 7.4 g/dL (6.4-8.2)
[2021-09-21 21:15] LABS: Urine Bacteria FEW /hpf (None Seen); Urine Blood 3+ /uL (Negative); Urine Specific Gravity 1.009 (1.001-1.035); Urine WBC 4 /hpf (0 - 5)
[2021-09-22] MEDS ORDERED: HYDROcodone-ACET 5/325MG TAB PO ONE (02:15)
[2021-09-22] MEDS ORDERED: ACETAMINOPHEN 325 MG TAB PO PRN (13:00)
[2021-09-22] MEDS ORDERED: MORPHINE SULFATE INJ 2 MG/ml SYRG IV PRN (13:00)
[2021-09-22] MEDS: HYDROcodone-ACET 5/325MG TAB PO PRN (14:22)
[2021-09-22 22:50] VITALS: BP 157/88
[2021-09-22 22:54] VITALS: BP 126/69
[2021-09-22] MEDS ORDERED: PNEUMOCOCCAL VACC POLYS 25 MCG/0.5 ML VIAL IM SCH (23:45)
[2021-09-23] MEDS: NITROGLYCERIN 0.4 MG SL TAB SL PRN ×2 (02:41→02:46)
[2021-09-23 02:50] VITALS: BP 157/108
[2021-09-23] MEDS: HYDROcodone-ACET 5/325MG TAB PO PRN ×3 (02:55→21:58)
[2021-09-23 05:00] VITALS: BP 132/94
[2021-09-23 06:06] LABS: Eosinophils # (auto) 0.1 10 ^3/uL (0-0.8); Monocytes # (auto) 0.5 10 ^3/uL (0-1.3); Monocytes % (auto) 8.8 % (0.0-12.0); Potassium 4.2 mmol/L (3.5-5.1); Red Cell Distribution Width 16.7 % (11.8-14.3); White Blood Cell 5.7 10^3/uL (4.4-10.8)
[2021-09-23 06:08] LABS: Basophils # (auto) 0.1 10 ^3/uL (0-0.2); Basophils % (auto) 0.9 % (0.0-2.0); Hemoglobin 11.8 g/dL (12.2-16.2); Lymphocytes % (auto) 17.5 % (10.0-50.0); Mean Corpuscular Hemoglobin 25.7 pg (28.0-32.0); Mean Corpuscular Volume 82.9 fL (80.0-100.0); Neutrophils # (auto) 4.1 10 ^3/uL (1.6-8.6); Neutrophils % (auto) 71.8 % (37.0-80.0); Red Blood Cells 4.58 10^6/uL (4.0-5.20)
[2021-09-23 06:19] LABS: Albumin 2.8 g/dL (3.4-5.0); BUN/Creatinine Ratio 18.7; Bilirubin, Total 0.3 mg/dL (0.2-1.0); Calcium 8.2 mg/dL (8.5-10.1); Total Protein 6.5 g/dL (6.4-8.2)
[2021-09-23 09:00] VITALS: BP 126/50
[2021-09-23] MEDS ORDERED: ASPirin 81 mg TAB PO SCH (10:00)
[2021-09-23] MEDS: ENOXAPARIN SOD 40 MG/0.4 ML SYRINGE SC SCH (10:14)
[2021-09-23] MEDS: CARVEDILOL 12.5 MG TAB PO SCH ×2 (10:14→21:57)
[2021-09-23] MEDS ORDERED: IOHEXOL 350 MG/ML 100ML IJ ONE (10:56)
[2021-09-23] MEDS ORDERED: DEXTROSE (50%) 50ML SYRG IV PRN (11:00)
[2021-09-23] MEDS ORDERED: LOSARTAN POTASSIUM 50 MG TAB PO ONE (11:00)
[2021-09-23] MEDS ORDERED: cefTRIAXone 1GM/50ML D5W 50 ML IV ONE (11:00)
[2021-09-23] MEDS ORDERED: SPIRONOLACTONE 25 MG TAB PO ONE (11:00)
[2021-09-23] MEDS: ACCU-CHEK COMFORT CURVE STRIP VI SCH ×3 (11:30→21:58)
[2021-09-23] MEDS: InsuLIN REG 1unit/0.01ml Soln (100units/ml) SC SCH ×3 (11:30→22:00)
[2021-09-23 13:00] VITALS: BP 118/82
[2021-09-23 17:00] VITALS: BP 126/77
[2021-09-23] MEDS ORDERED: FUROSEMIDE 100 MG/10ML VIAL IV SCH (18:00)
[2021-09-23 22:00] VITALS: BP 144/72
[2021-09-24 05:00] VITALS: BP 117/60
[2021-09-24] MEDS: ACCU-CHEK COMFORT CURVE STRIP VI SCH ×4 (06:53→22:01)
[2021-09-24] MEDS: InsuLIN REG 1unit/0.01ml Soln (100units/ml) SC SCH ×4 (06:55→22:01)
[2021-09-24 08:20] VITALS: BP 115/74
[2021-09-24] MEDS: CARVEDILOL 12.5 MG TAB PO SCH ×2 (09:38→22:00)
[2021-09-24] MEDS: ASPirin 81 mg TAB PO SCH (09:38)
[2021-09-24] MEDS: SPIRONOLACTONE 25 MG TAB PO SCH (09:39)
[2021-09-24] MEDS: cefTRIAXone 1GM/50ML D5W 50 ML IV SCH (09:39)
[2021-09-24] MEDS: LOSARTAN POTASSIUM 50 MG TAB PO SCH (09:39)
[2021-09-24] MEDS: ENOXAPARIN SOD 40 MG/0.4 ML SYRINGE SC SCH (09:39)
[2021-09-24] MEDS: INSULIN LANTUS (GLARGINE) 1 /0.01ml (100units/ml) SC SCH (09:56)
[2021-09-24] MEDS ORDERED: ADENOSINE 109 MG in GIVE UN-DILUTED 0 ML IV ONE (12:00)
[2021-09-24 12:35] VITALS: BP 110/83
[2021-09-24 16:20] VITALS: BP 94/69
[2021-09-24] MEDS: HYDROcodone-ACET 5/325MG TAB PO PRN ×2 (16:31→22:56)
[2021-09-24 22:00] VITALS: BP 122/72
[2021-09-24 22:08] LABS: Urine Bacteria FEW /hpf (None Seen); Urine Blood Negative /uL (Negative); Urine Mucus FEW (None Seen); Urine WBC 2 /hpf (0 - 5)
[2021-09-25 05:00] VITALS: BP 95/54
[2021-09-25] MEDS: InsuLIN REG 1unit/0.01ml Soln (100units/ml) SC SCH ×3 (06:50→17:30)
[2021-09-25] MEDS: ACCU-CHEK COMFORT CURVE STRIP VI SCH ×3 (06:50→17:25)
[2021-09-25] MEDS: HYDROcodone-ACET 5/325MG TAB PO PRN ×2 (06:50→14:31)
[2021-09-25 09:00] VITALS: BP 108/66
[2021-09-25] MEDS: SPIRONOLACTONE 25 MG TAB PO SCH (09:23)
[2021-09-25] MEDS: ASPirin 81 mg TAB PO SCH (09:23)
[2021-09-25] MEDS: cefTRIAXone 1GM/50ML D5W 50 ML IV SCH (09:23)
[2021-09-25] MEDS: INSULIN LANTUS (GLARGINE) 1 /0.01ml (100units/ml) SC SCH (09:24)
[2021-09-25] MEDS: CARVEDILOL 12.5 MG TAB PO SCH (09:24)
[2021-09-25] MEDS: LOSARTAN POTASSIUM 50 MG TAB PO SCH (09:24)
[2021-09-25 12:36] VITALS: BP 106/81
[2021-09-25] MEDS ORDERED: SPIR25TA8 PO (12:57)
[2021-09-25] MEDS ORDERED: METF-929 PO (12:57)
[2021-09-25] MEDS ORDERED: METO25TA93 PO (12:57)
[2021-09-25] MEDS ORDERED: GABA600T PO (12:57)
[2021-09-25] MEDS ORDERED: METF-489 PO (12:57)
[2021-09-25] MEDS ORDERED: FER325T PO (12:57)
[2021-09-25] MEDS ORDERED: GLIP10TA16 PO (13:11)
[2021-09-25] MEDS ORDERED: LOSA-69 PO (13:32)
[2021-09-25] MEDS ORDERED: ATOR10TA52 PO (13:33)
[2021-09-25 14:14] LABS: Basophils # (auto) 0 10 ^3/uL (0-0.2); Eosinophils # (auto) 0.1 10 ^3/uL (0-0.8); Hemoglobin 11.9 g/dL (12.2-16.2); Lymphocytes # (auto) 1.2 10 ^3/uL (0.4-5.4); Monocytes # (auto) 0.5 10 ^3/uL (0-1.3); Neutrophils # (auto) 4.5 10 ^3/uL (1.6-8.6); Red Cell Distribution Width 16.5 % (11.8-14.3); White Blood Cell 6.3 10^3/uL (4.4-10.8)
[2021-09-25 14:15] LABS: Basophils % (auto) 0.8 % (0.0-2.0); Hematocrit 38.7 % (36.0-46.0); Lymphocytes % (auto) 18.5 % (10.0-50.0); Mean Corpuscular Hemoglobin 25.5 pg (28.0-32.0); Mean Corpuscular Hgb Conc. 30.6 g/dL (32.0-36.0); Mean Corpuscular Volume 83.1 fL (80.0-100.0); Monocytes % (auto) 8.4 % (0.0-12.0); Neutrophils % (auto) 71.3 % (37.0-80.0); Red Blood Cells 4.66 10^6/uL (4.0-5.20)
[2021-09-25 16:40] VITALS: BP 131/86
[2021-09-25 19:28] VITALS: BP 131/86
== END 2021-09-25 21:33 | disposition home or self-care (01) | DRG 253 ==
LOC: ER 18:50 → TELE 09-22 13:02 → TELE-WESTW 09-22 22:30
PROVIDERS: ADMIT Internal Medicine; ATTEND Internal Medicine Nephrology
DX: K92.2 Gastrointestinal hemorrhage, unspecified (principal); E11.42 Type 2 diabetes mellitus with diabetic polyneuropathy; I11.0 Hypertensive heart disease with heart failure; I50.30 Unspecified diastolic (congestive) heart failure; K64.8 Other hemorrhoids; D62 Acute posthemorrhagic anemia; R07.89 Other chest pain; E55.9 Vitamin D deficiency, unspecified; R31.9 Hematuria, unspecified; K64.4 Residual hemorrhoidal skin tags; E66.01 Morbid (severe) obesity due to excess calories; Z20.822 Contact with and (suspected) exposure to COVID-19; Z79.4 Long term (current) use of insulin; Z79.899 Other long term (current) drug therapy; Z80.1 Family history of malignant neoplasm of trachea, bronchus and lung; Z82.49 Family history of ischemic heart disease and other diseases of the circulatory system; Z83.3 Family history of diabetes mellitus; Z86.73 Personal history of transient ischemic attack (TIA), and cerebral infarction without residual deficits; Z90.49 Acquired absence of other specified parts of digestive tract; Z68.42 Body mass index [BMI] 45.0-49.9, adult
CPT/HCPCS: 36415; 71045; 71260; 74177; 76830; 76856; 78452; 80053; 81001; 82962; 83735; 83880; 84484; 85025; 85610; 85730; 87086; 93005; 93017; G0378; J0153; J0696; J1815

== ENCOUNTER 2022-01-20 15:12 | Inpatient (IN) | payer MEDICAID ==
[~2022-01-20] VITALS: Ht 162.6 cm; Wt 120.0 kg
[~2022-01-20 15:12] MED LIST changes: -ASPI1CHW15 PO; +ATOR10TA52 PO; -AZIT250T9 PO; -CARV25TA55 PO; -CLIN-203 PO; -FURO1TAB31 PO; -FURO40TA4 PO; +GLIP10TA16 PO; +LOSA-69 PO; +METF-489 PO; +METF-929 PO; -PERCOT PO
[2022-01-20 15:51] LABS: Basophils # (auto) 0.1 10 ^3/uL (0-0.2); Basophils % (auto) 0.8 % (0.0-2.0); Eosinophils # (auto) 0.1 10 ^3/uL (0-0.8); Eosinophils % (auto) 1.7 % (0.0-7.0); Hematocrit 44.4 % (36.0-46.0); Hemoglobin 14.5 g/dL (12.2-16.2); Lymphocytes # (auto) 1.1 10 ^3/uL (0.4-5.4); Lymphocytes % (auto) 15.5 % (10.0-50.0); Mean Corpuscular Hemoglobin 26.2 pg (28.0-32.0); Mean Corpuscular Hgb Conc. 32.7 g/dL (32.0-36.0); Mean Corpuscular Volume 80.1 fL (80.0-100.0); Monocytes # (auto) 0.7 10 ^3/uL (0-1.3); Monocytes % (auto) 9.4 % (0.0-12.0); Neutrophils # (auto) 5.1 10 ^3/uL (1.6-8.6); Neutrophils % (auto) 72.6 % (37.0-80.0); Red Blood Cells 5.54 10^6/uL (4.0-5.20); Red Cell Distribution Width 15.2 % (11.8-14.3)
[2022-01-20 16:17] LABS: Albumin 3.3 g/dL (3.4-5.0); BUN/Creatinine Ratio 19.7; Calcium 9.2 mg/dL (8.5-10.1); Magnesium 2.4 mg/dL (1.6-2.6); Potassium 4.2 mmol/L (3.5-5.1)
[2022-01-20 16:19] LABS: Bilirubin, Total 0.4 mg/dL (0.2-1.0)
[2022-01-20] MEDS ORDERED: FUROSEMIDE 40 MG/4 ML VIAL IV ONE (19:15)
[2022-01-20] MEDS ORDERED: DexAMETHasone SOD PHOS 10MG/1ML VIAL INJ IV ONE (19:15)
[2022-01-20] MEDS ORDERED: IPRATROPIUM BROM 0.5 MG/2.5ML INH SOL NEB ONE (19:15)
[2022-01-20] MEDS ORDERED: LOSARTAN POTASSIUM 50 MG TAB PO ONE (19:15)
[2022-01-20] MEDS ORDERED: ALBUTEROL SULF 2.5 MG/0.5ML(0.5%) NEB SOLN NEB ONE (19:15)
[2022-01-20] MEDS: METOPROLOL TARTRATE 25 MG TAB PO ONE ×2 (22:14→23:07)
[2022-01-20] MEDS ORDERED: NITROGLYCERIN 0.4 MG SL TAB SL PRN (22:30)
[2022-01-20] MEDS ORDERED: ONDANSETRON HCL 4 MG/2 ML VIAL IV PRN (22:30)
[2022-01-20] MEDS ORDERED: MORPHINE SULFATE INJ 2 MG/ml SYRG IV PRN (22:30)
[2022-01-20] MEDS ORDERED: DEXTROSE (50%) 50ML SYRG IV PRN (22:30)
[2022-01-20 23:09] VITALS: BP 117/80
[2022-01-21 04:40] LABS: Basophils # (auto) 0 10 ^3/uL (0-0.2); Basophils % (auto) 0.5 % (0.0-2.0); Eosinophils # (auto) 0 10 ^3/uL (0-0.8); Eosinophils % (auto) 0.1 % (0.0-7.0); Lymphocytes # (auto) 0.6 10 ^3/uL (0.4-5.4); Monocytes # (auto) 0.1 10 ^3/uL (0-1.3); Monocytes % (auto) 1.8 % (0.0-12.0); Neutrophils # (auto) 6.2 10 ^3/uL (1.6-8.6); White Blood Cell 6.9 10^3/uL (4.4-10.8)
[2022-01-21 04:42] LABS: Hematocrit 46.3 % (36.0-46.0); Hemoglobin 14.5 g/dL (12.2-16.2); Lymphocytes % (auto) 8.1 % (10.0-50.0); Mean Corpuscular Hemoglobin 25.3 pg (28.0-32.0); Mean Corpuscular Hgb Conc. 31.4 g/dL (32.0-36.0); Mean Corpuscular Volume 80.8 fL (80.0-100.0); Neutrophils % (auto) 89.5 % (37.0-80.0); Red Blood Cells 5.72 10^6/uL (4.0-5.20); Red Cell Distribution Width 15.8 % (11.8-14.3)
[2022-01-21 05:05] LABS: BUN/Creatinine Ratio 18.3; Calcium 8.9 mg/dL (8.5-10.1); Potassium 4.4 mmol/L (3.5-5.1)
[2022-01-21] MEDS: FUROSEMIDE 40 MG TAB PO SCH ×2 (06:09→18:00)
[2022-01-21] MEDS: ACCU-CHEK COMFORT CURVE STRIP VI SCH ×4 (08:28→22:05)
[2022-01-21] MEDS: InsuLIN REG 1unit/0.01ml Soln (100units/ml) SC SCH ×4 (08:29→22:04)
[2022-01-21] MEDS: ENOXAPARIN SOD 40 MG/0.4 ML SYRINGE SC SCH (10:30)
[2022-01-21] MEDS: PANTOPRAZOLE 40 MG TAB PO SCH (10:30)
[2022-01-21] MEDS: LOSARTAN POTASSIUM 50 MG TAB PO SCH (10:31)
[2022-01-21] MEDS: SPIRONOLACTONE 25 MG TAB PO SCH (10:31)
[2022-01-21] MEDS: GABAPENTIN 300 MG CAP PO SCH ×2 (10:31→22:06)
[2022-01-21] MEDS: CARVEDILOL 12.5 MG TAB PO SCH ×2 (10:32→22:07)
[2022-01-21] MEDS ORDERED: INSULIN LANTUS (GLARGINE) 1 /0.01ml (100units/ml) SC ONE (12:45)
[2022-01-21 17:00] VITALS: BP 107/60
[2022-01-21] MEDS: ALBUTEROL SULF 2.5 MG/0.5ML(0.5%) NEB SOLN NEB PRN (18:44)
[2022-01-21] MEDS ORDERED: FURO40TA4 PO (18:55)
[2022-01-21] MEDS ORDERED: ALBUAER3 IN (18:55)
[2022-01-21 20:00] VITALS: BP 133/78
[2022-01-21 22:00] VITALS: BP 133/78
[2022-01-21] MEDS: INSULIN LANTUS (GLARGINE) 1 /0.01ml (100units/ml) SC SCH (22:04)
[2022-01-21] MEDS: ATORVASTATIN 20 MG TAB PO SCH (22:06)
[2022-01-21] MEDS: ACETAMINOPHEN 325 MG TAB PO PRN (22:08)
[2022-01-22] MEDS: ALBUTEROL SULF 2.5 MG/0.5ML(0.5%) NEB SOLN NEB PRN ×3 (02:26→18:12)
[2022-01-22 05:00] VITALS: BP 95/54
[2022-01-22] MEDS: FUROSEMIDE 40 MG TAB PO SCH ×2 (06:00→17:21)
[2022-01-22] MEDS: InsuLIN REG 1unit/0.01ml Soln (100units/ml) SC SCH ×4 (06:28→21:58)
[2022-01-22 09:00] VITALS: BP 104/60
[2022-01-22] MEDS: CARVEDILOL 12.5 MG TAB PO SCH ×2 (10:00→21:41)
[2022-01-22] MEDS: LOSARTAN POTASSIUM 50 MG TAB PO SCH (10:00)
[2022-01-22] MEDS: GABAPENTIN 300 MG CAP PO SCH ×2 (10:14→21:43)
[2022-01-22] MEDS: PANTOPRAZOLE 40 MG TAB PO SCH (10:14)
[2022-01-22] MEDS: SPIRONOLACTONE 25 MG TAB PO SCH (10:14)
[2022-01-22] MEDS: ENOXAPARIN SOD 40 MG/0.4 ML SYRINGE SC SCH (10:15)
[2022-01-22] MEDS: ACCU-CHEK COMFORT CURVE STRIP VI SCH ×3 (11:30→21:43)
[2022-01-22] MEDS: INSULIN LANTUS (GLARGINE) 1 /0.01ml (100units/ml) SC SCH ×2 (11:50→22:09)
[2022-01-22] MEDS: ACETAMINOPHEN 325 MG TAB PO PRN (12:01)
[2022-01-22 12:30] VITALS: BP 118/64
[2022-01-22 17:00] VITALS: BP 104/53
[2022-01-22 20:00] VITALS: BP 103/65
[2022-01-22] MEDS ORDERED: KETOROLAC TROMETH 30 MG/ML 1ML VIAL IV ONE (20:30)
[2022-01-22] MEDS: ATORVASTATIN 20 MG TAB PO SCH (21:40)
[2022-01-22 22:00] VITALS: BP 103/63
[2022-01-23 05:00] VITALS: BP 97/55
[2022-01-23] MEDS: FUROSEMIDE 40 MG TAB PO SCH ×2 (06:00→18:37)
[2022-01-23] MEDS: ACCU-CHEK COMFORT CURVE STRIP VI SCH ×4 (06:26→21:43)
[2022-01-23] MEDS: InsuLIN REG 1unit/0.01ml Soln (100units/ml) SC SCH ×4 (06:34→21:41)
[2022-01-23 08:53] VITALS: BP_SYST 142; BP_SYST 92; BP_DIAS 50; BP_DIAS 92
[2022-01-23] MEDS: GABAPENTIN 300 MG CAP PO SCH ×2 (09:07→21:33)
[2022-01-23] MEDS: PANTOPRAZOLE 40 MG TAB PO SCH (09:07)
[2022-01-23] MEDS: ENOXAPARIN SOD 40 MG/0.4 ML SYRINGE SC SCH (09:07)
[2022-01-23] MEDS: INSULIN LANTUS (GLARGINE) 1 /0.01ml (100units/ml) SC SCH ×2 (09:12→21:42)
[2022-01-23] MEDS: CARVEDILOL 12.5 MG TAB PO SCH ×2 (09:13→21:32)
[2022-01-23] MEDS: SPIRONOLACTONE 25 MG TAB PO SCH (09:13)
[2022-01-23] MEDS: LOSARTAN POTASSIUM 50 MG TAB PO SCH (09:14)
[2022-01-23 12:28] VITALS: BP 92/50
[2022-01-23 13:00] VITALS: BP 133/89
[2022-01-23] MEDS: ALBUTEROL SULF 2.5 MG/0.5ML(0.5%) NEB SOLN NEB PRN ×2 (14:15→19:52)
[2022-01-23 17:00] VITALS: BP 156/99
[2022-01-23] MEDS: ATORVASTATIN 20 MG TAB PO SCH (21:32)
[2022-01-23 22:00] VITALS: BP 129/79
[2022-01-23] MEDS: MORPHINE SULFATE INJ 2 MG/ml SYRG IV PRN (22:48)
[2022-01-24 05:00] VITALS: BP 127/73
[2022-01-24] MEDS: FUROSEMIDE 40 MG TAB PO SCH ×2 (06:21→18:20)
[2022-01-24] MEDS: InsuLIN REG 1unit/0.01ml Soln (100units/ml) SC SCH ×4 (06:24→21:58)
[2022-01-24] MEDS: ACCU-CHEK COMFORT CURVE STRIP VI SCH ×4 (06:25→21:57)
[2022-01-24 09:00] VITALS: BP 115/83
[2022-01-24] MEDS: ENOXAPARIN SOD 40 MG/0.4 ML SYRINGE SC SCH (10:12)
[2022-01-24] MEDS: MORPHINE SULFATE INJ 2 MG/ml SYRG IV PRN ×2 (10:13→18:21)
[2022-01-24] MEDS: GABAPENTIN 300 MG CAP PO SCH ×2 (10:14→21:57)
[2022-01-24] MEDS: LOSARTAN POTASSIUM 50 MG TAB PO SCH (10:14)
[2022-01-24] MEDS: PANTOPRAZOLE 40 MG TAB PO SCH (10:14)
[2022-01-24] MEDS: SPIRONOLACTONE 25 MG TAB PO SCH (10:14)
[2022-01-24] MEDS: CARVEDILOL 12.5 MG TAB PO SCH ×2 (10:14→21:57)
[2022-01-24] MEDS: INSULIN LANTUS (GLARGINE) 1 /0.01ml (100units/ml) SC SCH ×2 (10:16→21:59)
[2022-01-24 13:00] VITALS: BP 89/55
[2022-01-24 17:00] VITALS: BP 131/50
[2022-01-24] MEDS: ALBUTEROL SULF 2.5 MG/0.5ML(0.5%) NEB SOLN NEB PRN (19:49)
[2022-01-24 20:10] VITALS: BP 120/68
[2022-01-24] MEDS: ATORVASTATIN 20 MG TAB PO SCH (21:57)
[2022-01-24 21:58] VITALS: BP 120/68
[2022-01-25] VITALS (7 sets, daily range): BP systolic 112–142; BP diastolic 67–105
[2022-01-25] MEDS: FUROSEMIDE 40 MG TAB PO SCH ×2 (06:15→18:31)
[2022-01-25] MEDS: ACCU-CHEK COMFORT CURVE STRIP VI SCH ×4 (06:15→22:05)
[2022-01-25] MEDS: InsuLIN REG 1unit/0.01ml Soln (100units/ml) SC SCH ×4 (06:15→22:19)
[2022-01-25] MEDS: PANTOPRAZOLE 40 MG TAB PO SCH (10:38)
[2022-01-25] MEDS: GABAPENTIN 300 MG CAP PO SCH ×2 (10:38→21:59)
[2022-01-25] MEDS: CARVEDILOL 12.5 MG TAB PO SCH ×3 (10:39→22:00)
[2022-01-25] MEDS: LOSARTAN POTASSIUM 50 MG TAB PO SCH (10:40)
[2022-01-25] MEDS: ENOXAPARIN SOD 40 MG/0.4 ML SYRINGE SC SCH (10:40)
[2022-01-25] MEDS: SPIRONOLACTONE 25 MG TAB PO SCH (10:40)
[2022-01-25] MEDS: INSULIN LANTUS (GLARGINE) 1 /0.01ml (100units/ml) SC SCH ×2 (10:48→22:11)
[2022-01-25] MEDS: ATORVASTATIN 20 MG TAB PO SCH (21:59)
[2022-01-26 05:00] VITALS: BP 127/59
[2022-01-26] MEDS: FUROSEMIDE 40 MG TAB PO SCH (05:59)
[2022-01-26] MEDS: ACCU-CHEK COMFORT CURVE STRIP VI SCH ×3 (06:00→17:00)
[2022-01-26] MEDS: InsuLIN REG 1unit/0.01ml Soln (100units/ml) SC SCH ×3 (06:10→17:00)
[2022-01-26 08:00] VITALS: BP 120/68
[2022-01-26 09:00] VITALS: BP 118/76
[2022-01-26] MEDS: LOSARTAN POTASSIUM 50 MG TAB PO SCH (10:06)
[2022-01-26] MEDS: PANTOPRAZOLE 40 MG TAB PO SCH (10:07)
[2022-01-26] MEDS: SPIRONOLACTONE 25 MG TAB PO SCH (10:08)
[2022-01-26] MEDS: CARVEDILOL 12.5 MG TAB PO SCH (10:09)
[2022-01-26] MEDS: GABAPENTIN 300 MG CAP PO SCH (10:09)
[2022-01-26] MEDS: ENOXAPARIN SOD 40 MG/0.4 ML SYRINGE SC SCH (10:10)
[2022-01-26] MEDS: INSULIN LANTUS (GLARGINE) 1 /0.01ml (100units/ml) SC SCH (10:15)
[2022-01-26 10:57] VITALS: BP 118/76
[2022-01-26] MEDS ORDERED: SPIR25TA PO (11:25)
[2022-01-26] MEDS ORDERED: CARV25TA PO (11:25)
[2022-01-26 13:00] VITALS: BP 169/86
[2022-01-26 16:52] VITALS: BP 136/85
== END 2022-01-26 17:15 | disposition home or self-care (01) | DRG 133 ==
LOC: ER 15:12 → TELE 22:51 → TELE-EAST 01-21 17:19
PROVIDERS: ADMIT Nurse Practitioner; ATTEND Internal Medicine
DX: J96.20 Acute and chronic respiratory failure, unspecified whether with hypoxia or hypercapnia (principal); E11.22 Type 2 diabetes mellitus with diabetic chronic kidney disease; I50.9 Heart failure, unspecified; I13.0 Hypertensive heart and chronic kidney disease with heart failure and stage 1 through stage 4 chronic kidney disease, or unspecified chronic kidney disease; I16.0 Hypertensive urgency; J44.1 Chronic obstructive pulmonary disease with (acute) exacerbation; E66.01 Morbid (severe) obesity due to excess calories; Z20.822 Contact with and (suspected) exposure to COVID-19; E78.5 Hyperlipidemia, unspecified; N18.9 Chronic kidney disease, unspecified; Z80.1 Family history of malignant neoplasm of trachea, bronchus and lung; Z91.199 Patient's noncompliance with other medical treatment and regimen due to unspecified reason; Z68.42 Body mass index [BMI] 45.0-49.9, adult; Z59.00 Homelessness unspecified; Z82.49 Family history of ischemic heart disease and other diseases of the circulatory system; Z83.3 Family history of diabetes mellitus; Z86.73 Personal history of transient ischemic attack (TIA), and cerebral infarction without residual deficits
CPT/HCPCS: 36415; 36600; 71045; 80048; 80053; 82805; 82962; 83735; 83880; 84484; 85025; 87426; 87804; 93005; 94640; 96372; 96374; 96375; G0378; J1100; J1815; J1885

== ENCOUNTER 2022-02-09 15:11 | Emergency (ER) | payer MEDICAID ==
[~2022-02-09] VITALS: Ht 162.6 cm; Wt 128.0 kg
[~2022-02-09 15:11] MED LIST changes: +ALBUAER3 IN; +CARV25TA PO; +FURO40TA4 PO; +SPIR25TA PO
[2022-02-09 17:15] LABS: Eosinophils # (auto) 0.1 10 ^3/uL (0-0.8); Hemoglobin 13.6 g/dL (12.2-16.2); Lymphocytes # (auto) 1.3 10 ^3/uL (0.4-5.4); Monocytes # (auto) 0.6 10 ^3/uL (0-1.3); Neutrophils # (auto) 5.3 10 ^3/uL (1.6-8.6); Red Cell Distribution Width 16.2 % (11.8-14.3); White Blood Cell 7.4 10^3/uL (4.4-10.8)
[2022-02-09 17:18] LABS: Basophils # (auto) 0.1 10 ^3/uL (0-0.2); Basophils % (auto) 0.8 % (0.0-2.0); Eosinophils % (auto) 1.4 % (0.0-7.0); Hematocrit 42.7 % (36.0-46.0); Mean Corpuscular Hemoglobin 25.8 pg (28.0-32.0); Mean Corpuscular Hgb Conc. 31.9 g/dL (32.0-36.0); Monocytes % (auto) 7.9 % (0.0-12.0); Neutrophils % (auto) 71.9 % (37.0-80.0); Nucleated Red Blood Cells % 0.1 %; Red Blood Cells 5.28 10^6/uL (4.0-5.20)
[2022-02-09 17:36] LABS: Albumin 3.4 g/dL (3.4-5.0); BUN/Creatinine Ratio 16.7; Calcium 8.7 mg/dL (8.5-10.1); Potassium 4.3 mmol/L (3.5-5.1)
[2022-02-09 17:38] LABS: Bilirubin, Total 0.4 mg/dL (0.2-1.0); Total Protein 6.9 g/dL (6.4-8.2)
[2022-02-09] MEDS ORDERED: cloNIDine HCL 0.1 MG TAB PO ONE (20:30)
[2022-02-09 22:35] VITALS: BP 154/88
== END 2022-02-09 22:36 | disposition home or self-care (01) ==
LOC: ER 15:11
DX: E11.22 Type 2 diabetes mellitus with diabetic chronic kidney disease (principal); I13.0 Hypertensive heart and chronic kidney disease with heart failure and stage 1 through stage 4 chronic kidney disease, or unspecified chronic kidney disease; N18.9 Chronic kidney disease, unspecified; I50.89 Other heart failure; E78.5 Hyperlipidemia, unspecified; Z90.49 Acquired absence of other specified parts of digestive tract; Z86.73 Personal history of transient ischemic attack (TIA), and cerebral infarction without residual deficits
CPT/HCPCS: 36415; 80053; 84484; 85025

== ENCOUNTER 2022-02-20 09:03 | Inpatient (IN) | payer MEDICAID ==
[~2022-02-20] VITALS: Ht 162.6 cm; Wt 129.6 kg
[2022-02-20 10:27] LABS: Basophils # (auto) 0.1 10 ^3/uL (0-0.2); Basophils % (auto) 0.9 % (0.0-2.0); Eosinophils # (auto) 0 10 ^3/uL (0-0.8); Hemoglobin 13.6 g/dL (12.2-16.2); Lymphocytes # (auto) 1.1 10 ^3/uL (0.4-5.4)
[2022-02-20 10:30] LABS: Eosinophils % (auto) 0.2 % (0.0-7.0); Hematocrit 42.2 % (36.0-46.0); Lymphocytes % (auto) 13.5 % (10.0-50.0); Mean Corpuscular Hemoglobin 26.4 pg (28.0-32.0); Mean Corpuscular Hgb Conc. 32.3 g/dL (32.0-36.0); Mean Corpuscular Volume 81.8 fL (80.0-100.0); Monocytes # (auto) 0.8 10 ^3/uL (0-1.3); Monocytes % (auto) 10.2 % (0.0-12.0); Neutrophils # (auto) 6.1 10 ^3/uL (1.6-8.6); Neutrophils % (auto) 75.2 % (37.0-80.0); Nucleated Red Blood Cells % 0.2 %; Red Blood Cells 5.16 10^6/uL (4.0-5.20); Red Cell Distribution Width 16.9 % (11.8-14.3); White Blood Cell 8.2 10^3/uL (4.4-10.8)
[2022-02-20 10:49] LABS: Albumin 3.6 g/dL (3.4-5.0); Calcium 7.8 mg/dL (8.5-10.1); Potassium 4.6 mmol/L (3.5-5.1)
[2022-02-20 10:54] LABS: BUN/Creatinine Ratio 28.1; Bilirubin, Total 0.6 mg/dL (0.2-1.0); Total Protein 6.9 g/dL (6.4-8.2)
[2022-02-20] MEDS ORDERED: ASPirin 81 mg TAB PO ONE (12:15)
[2022-02-20] MEDS ORDERED: SODIUM CHLORIDE 0.9% 1,000 ML IV ONE (12:15)
[2022-02-20 12:30] LABS: INR 1.03 (0.9-1.15); Partial Thromboplastin Time 25.1 sec (24.6-33.4)
[2022-02-20] MEDS ORDERED: NITROGLYCERIN 0.4 MG SL TAB SL PRN (16:45)
[2022-02-20] MEDS ORDERED: MORPHINE SULFATE INJ 2 MG/ml SYRG IV PRN (16:45)
[2022-02-20] MEDS ORDERED: IPRATROPIUM BROM 0.5 MG/2.5ML INH SOL NEB ONE (16:45)
[2022-02-20] MEDS ORDERED: ALBUTEROL MEDNEB 2.5 mg/3ml NEB NEB ONE (17:00)
[2022-02-20] MEDS ORDERED: DEXTROSE (50%) 50ML SYRG IV PRN (17:00)
[2022-02-20] MEDS: ACCU-CHEK COMFORT CURVE STRIP VI SCH ×2 (17:24→22:00)
[2022-02-20] MEDS: InsuLIN REG 1unit/0.01ml Soln (100units/ml) SC SCH ×2 (17:32→22:00)
[2022-02-20] MEDS: BUDESONIDE (INHALATION) 0.5 MG/2 ML NEB NEB SCH (17:38)
[2022-02-20] MEDS: IPRATROPIUM BROM 0.5 MG/2.5ML INH SOL NEB SCH (17:39)
[2022-02-20] MEDS: ALBUTEROL MEDNEB 2.5 mg/3ml NEB NEB SCH (17:39)
[2022-02-20] MEDS: DOXYCYCLINE 100MG/250ML 250 ML IV SCH (18:13)
[2022-02-20] MEDS: methylPREDNISolone SOD SUCC 40 MG/ML VL IV SCH (23:09)
[2022-02-21] MEDS: DOXYCYCLINE 100MG/250ML 250 ML IV SCH ×2 (05:09→17:20)
[2022-02-21] MEDS: IPRATROPIUM BROM 0.5 MG/2.5ML INH SOL NEB SCH ×3 (05:53→18:59)
[2022-02-21] MEDS: ALBUTEROL MEDNEB 2.5 mg/3ml NEB NEB SCH ×3 (05:53→18:59)
[2022-02-21] MEDS: BUDESONIDE (INHALATION) 0.5 MG/2 ML NEB NEB SCH ×2 (05:53→19:00)
[2022-02-21] MEDS: ACCU-CHEK COMFORT CURVE STRIP VI SCH ×4 (07:08→22:55)
[2022-02-21] MEDS: InsuLIN REG 1unit/0.01ml Soln (100units/ml) SC SCH ×5 (07:13→23:07)
[2022-02-21 07:29] LABS: Basophils # (auto) 0 10 ^3/uL (0-0.2); Basophils % (auto) 0.2 % (0.0-2.0); Eosinophils # (auto) 0 10 ^3/uL (0-0.8); Lymphocytes # (auto) 0.5 10 ^3/uL (0.4-5.4); Monocytes # (auto) 0.2 10 ^3/uL (0-1.3); Monocytes % (auto) 2.5 % (0.0-12.0)
[2022-02-21 07:30] LABS: Hematocrit 40.6 % (36.0-46.0); Hemoglobin 12.9 g/dL (12.2-16.2); Lymphocytes % (auto) 7.9 % (10.0-50.0); Mean Corpuscular Hemoglobin 26.4 pg (28.0-32.0); Mean Corpuscular Hgb Conc. 31.8 g/dL (32.0-36.0); Mean Corpuscular Volume 83.2 fL (80.0-100.0); Neutrophils # (auto) 6.1 10 ^3/uL (1.6-8.6); Neutrophils % (auto) 89.4 % (37.0-80.0); Red Blood Cells 4.89 10^6/uL (4.0-5.20); Red Cell Distribution Width 17.6 % (11.8-14.3); White Blood Cell 6.9 10^3/uL (4.4-10.8)
[2022-02-21 07:53] LABS: BUN/Creatinine Ratio 31.8; Calcium 8.1 mg/dL (8.5-10.1); Potassium 5.1 mmol/L (3.5-5.1)
[2022-02-21] MEDS: ASPirin-EC 81 mg tab PO SCH (09:47)
[2022-02-21] MEDS: methylPREDNISolone SOD SUCC 40 MG/ML VL IV SCH ×2 (09:47→22:53)
[2022-02-21 09:50] LABS: Urine Bacteria FEW /hpf (None Seen); Urine Blood Negative /uL (Negative); Urine Hyaline Cast FEW /lpf (0 - 2); Urine Specific Gravity 1.015 (1.001-1.035); Urine WBC 1 /hpf (0 - 5)
[2022-02-21] MEDS ORDERED: LACTATED RINGER'S 1,000 ML IV ONE (15:15)
[2022-02-21] MEDS: MORPHINE SULFATE INJ 2 MG/ml SYRG IV PRN ×2 (16:25→22:55)
[2022-02-21 21:30] VITALS: BP 127/50
[2022-02-22] VITALS (7 sets, daily range): BP systolic 117–162; BP diastolic 79–103
[2022-02-22] MEDS: MORPHINE SULFATE INJ 2 MG/ml SYRG IV PRN ×2 (02:46→22:35)
[2022-02-22] MEDS: DOXYCYCLINE 100MG/250ML 250 ML IV SCH ×2 (05:12→17:00)
[2022-02-22] MEDS: ACCU-CHEK COMFORT CURVE STRIP VI SCH ×6 (06:33→22:28)
[2022-02-22] MEDS: InsuLIN REG 1unit/0.01ml Soln (100units/ml) SC SCH ×3 (06:35→18:03)
[2022-02-22] MEDS: BUDESONIDE (INHALATION) 0.5 MG/2 ML NEB NEB SCH ×2 (07:13→19:32)
[2022-02-22] MEDS: IPRATROPIUM BROM 0.5 MG/2.5ML INH SOL NEB SCH ×3 (07:13→19:32)
[2022-02-22] MEDS: ALBUTEROL MEDNEB 2.5 mg/3ml NEB NEB SCH ×3 (07:13→19:32)
[2022-02-22] MEDS: methylPREDNISolone SOD SUCC 40 MG/ML VL IV SCH ×2 (09:14→22:11)
[2022-02-22] MEDS: ASPirin-EC 81 mg tab PO SCH (09:14)
[2022-02-22 10:56] LABS: BUN/Creatinine Ratio 37.5; Calcium 8.3 mg/dL (8.5-10.1)
[2022-02-22 12:26] LABS: Potassium 5.4 mmol/L (3.5-5.1)
[2022-02-22] MEDS ORDERED: FUROSEMIDE 40 MG/4 ML VIAL IV ONE (14:45)
[2022-02-22] MEDS ORDERED: InsuLIN REG 1unit/0.01ml Soln (100units/ml) IV ONE (14:45)
[2022-02-22] MEDS ORDERED: DEXTROSE (50%) 50ML SYRG IV PRN (14:45)
[2022-02-22] MEDS ORDERED: InsuLIN REG 1unit/0.01ml Soln (100units/ml) ONE (22:25)
[2022-02-23] MEDS: MORPHINE SULFATE INJ 2 MG/ml SYRG IV PRN ×2 (03:15→09:43)
[2022-02-23 05:00] VITALS: BP 167/92
[2022-02-23] MEDS: DOXYCYCLINE 100MG/250ML 250 ML IV SCH ×2 (05:00→17:00)
[2022-02-23] MEDS: IPRATROPIUM BROM 0.5 MG/2.5ML INH SOL NEB SCH ×4 (06:00→20:00)
[2022-02-23] MEDS: ALBUTEROL MEDNEB 2.5 mg/3ml NEB NEB SCH ×4 (06:00→20:00)
[2022-02-23] MEDS: ACCU-CHEK COMFORT CURVE STRIP VI SCH ×4 (06:00→18:13)
[2022-02-23] MEDS: BUDESONIDE (INHALATION) 0.5 MG/2 ML NEB NEB SCH ×3 (06:06→20:02)
[2022-02-23] MEDS: InsuLIN REG 1unit/0.01ml Soln (100units/ml) SC SCH ×3 (06:30→18:00)
[2022-02-23 09:00] VITALS: BP 195/120
[2022-02-23] MEDS: ASPirin-EC 81 mg tab PO SCH (09:41)
[2022-02-23] MEDS: methylPREDNISolone SOD SUCC 40 MG/ML VL IV SCH ×3 (09:41→22:00)
[2022-02-23] MEDS ORDERED: cloNIDine HCL 0.1 MG TAB PO PRN (11:30)
[2022-02-23 13:00] VITALS: BP 153/96
[2022-02-23 17:00] VITALS: BP 157/92
[2022-02-23 20:25] VITALS: BP 153/96
[2022-02-24] MEDS: DOXYCYCLINE 100MG/250ML 250 ML IV SCH (04:50)
[2022-02-24] MEDS: ALBUTEROL MEDNEB 2.5 mg/3ml NEB NEB SCH ×2 (06:47→12:00)
[2022-02-24] MEDS: IPRATROPIUM BROM 0.5 MG/2.5ML INH SOL NEB SCH ×2 (06:47→12:00)
[2022-02-24 09:31] VITALS: BP 162/104
[2022-02-24] MEDS: ASPirin-EC 81 mg tab PO SCH (09:53)
[2022-02-24] MEDS: BUDESONIDE (INHALATION) 0.5 MG/2 ML NEB NEB SCH (10:00)
[2022-02-24] MEDS: methylPREDNISolone SOD SUCC 40 MG/ML VL IV SCH (10:00)
[2022-02-24] MEDS ORDERED: ASPI-543 PO (10:28)
[2022-02-24] MEDS ORDERED: DOXY-332 PO (10:28)
[2022-02-24] MEDS: ACCU-CHEK COMFORT CURVE STRIP VI SCH ×2 (12:00)
[2022-02-24] MEDS: InsuLIN REG 1unit/0.01ml Soln (100units/ml) SC SCH ×2 (12:00)
[2022-02-24 13:22] VITALS: BP 145/96
== END 2022-02-24 14:42 | disposition home or self-care (01) | DRG 139 ==
LOC: ER 09:03 → TELE 16:41 → TELE-WESTW 02-21 21:25
PROVIDERS: ADMIT Nurse Practitioner Acute Care; ATTEND Internal Medicine Pulmonary Disease
PROC: 5A09357 Assistance with Respiratory Ventilation, Less than 24 Consecutive Hours, Continuous Positive Airway Pressure (ICD-10-PCS; principal; 2022-02-21)
DX: J18.9 Pneumonia, unspecified organism (principal); J96.21 Acute and chronic respiratory failure with hypoxia; I21.A1 Myocardial infarction type 2; I50.33 Acute on chronic diastolic (congestive) heart failure; N17.9 Acute kidney failure, unspecified; E11.21 Type 2 diabetes mellitus with diabetic nephropathy; I11.0 Hypertensive heart disease with heart failure; E11.65 Type 2 diabetes mellitus with hyperglycemia; Z20.822 Contact with and (suspected) exposure to COVID-19; J96.22 Acute and chronic respiratory failure with hypercapnia; E87.5 Hyperkalemia; J44.0 Chronic obstructive pulmonary disease with (acute) lower respiratory infection; J44.1 Chronic obstructive pulmonary disease with (acute) exacerbation; E66.01 Morbid (severe) obesity due to excess calories; Z68.42 Body mass index [BMI] 45.0-49.9, adult; Z79.51 Long term (current) use of inhaled steroids; Z80.1 Family history of malignant neoplasm of trachea, bronchus and lung; Z82.49 Family history of ischemic heart disease and other diseases of the circulatory system; Z83.3 Family history of diabetes mellitus; Z86.73 Personal history of transient ischemic attack (TIA), and cerebral infarction without residual deficits; Z90.710 Acquired absence of both cervix and uterus; Z90.49 Acquired absence of other specified parts of digestive tract
CPT/HCPCS: 36415; 36600; 71045; 76775; 80048; 80053; 81001; 82805; 82962; 83036; 83735; 83880; 84484; 85025; 85379; 85610; 85730; 86141; 87426; 87804; 93005; 94640; 96361; 96365; G0378; J1815; J3490

== ENCOUNTER 2022-03-08 15:17 | Emergency (ER) | payer MEDICAID ==
[~2022-03-08] VITALS: Ht 162.6 cm; Wt 124.3 kg
[~2022-03-08 15:17] MED LIST changes: +ASPI-543 PO; +DOXY-332 PO; -METF-489 PO; -SPIR25TA8 PO
[2022-03-08 19:29] LABS: Basophils # (auto) 0.1 10 ^3/uL (0-0.2); Basophils % (auto) 0.6 % (0.0-2.0); Eosinophils # (auto) 0 10 ^3/uL (0-0.8); Eosinophils % (auto) 0.4 % (0.0-7.0); Hemoglobin 13.4 g/dL (12.2-16.2); Lymphocytes # (auto) 1.4 10 ^3/uL (0.4-5.4); Lymphocytes % (auto) 14.7 % (10.0-50.0); Mean Corpuscular Hgb Conc. 31.9 g/dL (32.0-36.0); Mean Corpuscular Volume 81.7 fL (80.0-100.0); Monocytes # (auto) 0.6 10 ^3/uL (0-1.3); Monocytes % (auto) 6.4 % (0.0-12.0); Neutrophils # (auto) 7.2 10 ^3/uL (1.6-8.6); Neutrophils % (auto) 77.9 % (37.0-80.0); Red Blood Cells 5.14 10^6/uL (4.0-5.20); Red Cell Distribution Width 16.9 % (11.8-14.3); White Blood Cell 9.3 10^3/uL (4.4-10.8)
[2022-03-08 19:52] LABS: Albumin 3.3 g/dL (3.4-5.0); BUN/Creatinine Ratio 13.1; Calcium 9.2 mg/dL (8.5-10.1)
[2022-03-08 19:53] LABS: Urine Bacteria NONE SEEN /hpf (None Seen); Urine Blood 3+ /uL (Negative); Urine WBC 44 /hpf (0 - 5)
[2022-03-08 19:54] LABS: Bilirubin, Total 0.4 mg/dL (0.2-1.0); Total Protein 7.5 g/dL (6.4-8.2)
[2022-03-09] MEDS ORDERED: cefTRIAXone SOD 1,000 MG VL IM ONE (02:15)
[2022-03-09] MEDS ORDERED: OXYCODONE W/ ACETAMINOPHEN 5/325MG TABLET PO ONE (02:15)
[2022-03-09 04:40] VITALS: BP 153/91
== END 2022-03-09 04:50 | disposition home or self-care (01) ==
LOC: ER 15:17
DX: K57.90 Diverticulosis of intestine, part unspecified, without perforation or abscess without bleeding (principal); R10.2 Pelvic and perineal pain; J44.9 Chronic obstructive pulmonary disease, unspecified; E78.5 Hyperlipidemia, unspecified; I13.0 Hypertensive heart and chronic kidney disease with heart failure and stage 1 through stage 4 chronic kidney disease, or unspecified chronic kidney disease; E11.22 Type 2 diabetes mellitus with diabetic chronic kidney disease; N18.9 Chronic kidney disease, unspecified; Z86.73 Personal history of transient ischemic attack (TIA), and cerebral infarction without residual deficits; Z79.899 Other long term (current) drug therapy; Z90.49 Acquired absence of other specified parts of digestive tract; Z98.890 Other specified postprocedural states
CPT/HCPCS: 36415; 71045; 74176; 80053; 81001; 82962; 84702; 85025; 96372; 99285; J0696

== ENCOUNTER 2022-04-27 14:16 | Inpatient (IN) | payer MEDICAID ==
[~2022-04-27] VITALS: Ht 162.6 cm; Wt 122.0 kg
[2022-04-27] MEDS ORDERED: cloNIDine HCL 0.1 MG TAB PO ONE ×2 (14:45→18:45)
[2022-04-27 14:50] LABS: Eosinophils # (auto) 0 10 ^3/uL (0-0.8); Eosinophils % (auto) 0.2 % (0.0-7.0); Hemoglobin 14.6 g/dL (12.2-16.2); Monocytes # (auto) 0.7 10 ^3/uL (0-1.3); Neutrophils # (auto) 5.4 10 ^3/uL (1.6-8.6)
[2022-04-27 14:52] LABS: Basophils # (auto) 0 10 ^3/uL (0-0.2); Basophils % (auto) 0.6 % (0.0-2.0); Hematocrit 44.8 % (36.0-46.0); Lymphocytes # (auto) 1.1 10 ^3/uL (0.4-5.4); Lymphocytes % (auto) 14.5 % (10.0-50.0); Mean Corpuscular Hgb Conc. 32.7 g/dL (32.0-36.0); Mean Corpuscular Volume 82.7 fL (80.0-100.0); Monocytes % (auto) 10.1 % (0.0-12.0); Neutrophils % (auto) 74.6 % (37.0-80.0); Nucleated Red Blood Cells % 0.2 %; Red Blood Cells 5.41 10^6/uL (4.0-5.20); Red Cell Distribution Width 15.7 % (11.8-14.3); White Blood Cell 7.3 10^3/uL (4.4-10.8)
[2022-04-27 15:07] LABS: Albumin 3.5 g/dL (3.4-5.0); Calcium 8.6 mg/dL (8.5-10.1); Potassium 3.7 mmol/L (3.5-5.1)
[2022-04-27 15:11] LABS: BUN/Creatinine Ratio 13.4; Bilirubin, Total 0.3 mg/dL (0.2-1.0)
[2022-04-27] MEDS ORDERED: MORPHINE SULFATE INJ 2 MG/ml SYRG IV PRN (18:30)
[2022-04-27] MEDS ORDERED: ONDANSETRON HCL 4 MG/2 ML VIAL IV PRN (18:30)
[2022-04-27] MEDS ORDERED: ACETAMINOPHEN 325 MG TAB PO PRN (18:30)
[2022-04-27] MEDS ORDERED: DOCUSATE SOD 100 MG CAP PO PRN (18:30)
[2022-04-27] MEDS ORDERED: NITROGLYCERIN 0.4 MG SL TAB SL PRN (18:30)
[2022-04-27] MEDS ORDERED: hydrALAZINE HCL 20 MG/ML VL IV PRN (18:30)
[2022-04-27 20:11] VITALS: BP 191/101
[2022-04-27] MEDS: IPRATROPIUM BROM 0.5 MG/2.5ML INH SOL NEB SCH (21:49)
[2022-04-27] MEDS: ALBUTEROL SULF 2.5 MG/0.5ML(0.5%) NEB SOLN NEB PRN (21:49)
[2022-04-27] MEDS: SODIUM CHLOR 0.9% PF (SALINE LOCK) 10ML VIAL/SYR IV SCH (22:00)
[2022-04-27] MEDS: FUROSEMIDE 40 MG TAB PO SCH (23:49)
[2022-04-28] MEDS: ALBUTEROL SULF 2.5 MG/0.5ML(0.5%) NEB SOLN NEB PRN ×4 (01:45→18:24)
[2022-04-28] MEDS: IPRATROPIUM BROM 0.5 MG/2.5ML INH SOL NEB SCH ×4 (01:45→18:24)
[2022-04-28] MEDS: HYDROcodone-ACET 5/325MG TAB PO PRN ×3 (04:12→20:50)
[2022-04-28] MEDS: SODIUM CHLOR 0.9% PF (SALINE LOCK) 10ML VIAL/SYR IV SCH ×3 (05:55→21:28)
[2022-04-28] MEDS: cloNIDine HCL 0.1 MG TAB PO PRN (06:03)
[2022-04-28 06:34] LABS: Basophils # (auto) 0 10 ^3/uL (0-0.2); Basophils % (auto) 0.5 % (0.0-2.0); Eosinophils # (auto) 0 10 ^3/uL (0-0.8); Eosinophils % (auto) 0.2 % (0.0-7.0); Hematocrit 42.8 % (36.0-46.0); Hemoglobin 13.8 g/dL (12.2-16.2); Lymphocytes # (auto) 0.9 10 ^3/uL (0.4-5.4); Lymphocytes % (auto) 13.4 % (10.0-50.0); Mean Corpuscular Hgb Conc. 32.3 g/dL (32.0-36.0); Mean Corpuscular Volume 83.7 fL (80.0-100.0); Monocytes # (auto) 0.7 10 ^3/uL (0-1.3); Monocytes % (auto) 9.9 % (0.0-12.0); Nucleated Red Blood Cells % 0.1 %; Red Blood Cells 5.11 10^6/uL (4.0-5.20); Red Cell Distribution Width 15.6 % (11.8-14.3); White Blood Cell 6.6 10^3/uL (4.4-10.8)
[2022-04-28 06:58] LABS: Albumin 3.1 g/dL (3.4-5.0); BUN/Creatinine Ratio 17.5; Calcium 8.3 mg/dL (8.5-10.1); Potassium 3.3 mmol/L (3.5-5.1)
[2022-04-28 07:14] LABS: Bilirubin, Total 0.3 mg/dL (0.2-1.0); Total Protein 7.4 g/dL (6.4-8.2)
[2022-04-28 13:00] VITALS: BP 149/101
[2022-04-28] MEDS ORDERED: methylPREDNISolone SOD SUCC 40 MG/ML VL IV ONE (13:00)
[2022-04-28] MEDS ORDERED: methylPREDNISolone SOD SUCC 40 MG/ML VL ONE (14:39)
[2022-04-28] MEDS: PANTOPRAZOLE 40 MG/10 ML VIAL INJ IV SCH (14:45)
[2022-04-28] MEDS: METOPROLOL SUCCINATE XL 50 MG TAB PO SCH (15:31)
[2022-04-28] MEDS: glipiZIDE 5 MG TAB PO SCH (15:32)
[2022-04-28] MEDS: ATORVASTATIN 20 MG TAB PO SCH (15:33)
[2022-04-28] MEDS: ASPirin-EC 81 mg tab PO SCH (15:33)
[2022-04-28] MEDS: LOSARTAN POTASSIUM 50 MG TAB PO SCH (15:34)
[2022-04-28] MEDS: FUROSEMIDE 40 MG TAB PO SCH ×3 (15:34→21:28)
[2022-04-28] MEDS ORDERED: POTASSIUM CHL 20 Meq TABLET PO ONE (16:45)
[2022-04-28 22:00] VITALS: BP 154/98
[2022-04-28 22:09] LABS: Urine Bacteria NONE SEEN /hpf (None Seen); Urine Blood Negative /uL (Negative); Urine Specific Gravity 1.017 (1.001-1.035); Urine WBC 1 /hpf (0 - 5)
[2022-04-28 23:00] VITALS: BP 141/74
[2022-04-29] MEDS: ALBUTEROL SULF 2.5 MG/0.5ML(0.5%) NEB SOLN NEB PRN ×4 (00:23→14:20)
[2022-04-29] MEDS: IPRATROPIUM BROM 0.5 MG/2.5ML INH SOL NEB SCH ×8 (00:23→21:42)
[2022-04-29] MEDS: cloNIDine HCL 0.1 MG TAB PO PRN ×2 (04:06→20:57)
[2022-04-29 05:00] VITALS: BP 105/57
[2022-04-29] MEDS: SODIUM CHLOR 0.9% PF (SALINE LOCK) 10ML VIAL/SYR IV SCH ×3 (05:32→22:24)
[2022-04-29 08:54] LABS: BUN/Creatinine Ratio 22.1; Calcium 8.9 mg/dL (8.5-10.1); Potassium 4.8 mmol/L (3.5-5.1)
[2022-04-29 09:00] VITALS: BP 123/71
[2022-04-29] MEDS: PANTOPRAZOLE 40 MG/10 ML VIAL INJ IV SCH (09:22)
[2022-04-29] MEDS: ASPirin-EC 81 mg tab PO SCH (09:25)
[2022-04-29] MEDS: HYDROcodone-ACET 5/325MG TAB PO PRN ×3 (09:26→22:24)
[2022-04-29] MEDS: LOSARTAN POTASSIUM 50 MG TAB PO SCH (09:27)
[2022-04-29] MEDS: METOPROLOL SUCCINATE XL 50 MG TAB PO SCH (09:27)
[2022-04-29] MEDS: FUROSEMIDE 40 MG TAB PO SCH ×2 (09:28→22:21)
[2022-04-29] MEDS: ATORVASTATIN 20 MG TAB PO SCH (09:28)
[2022-04-29] MEDS: glipiZIDE 5 MG TAB PO SCH (09:30)
[2022-04-29] MEDS: methylPREDNISolone SOD SUCC 40 MG/ML VL IV SCH (09:33)
[2022-04-29 13:00] VITALS: BP 165/101
[2022-04-29 13:46] VITALS: BP 148/72
[2022-04-29 17:00] VITALS: BP 155/93
[2022-04-29] MEDS: guaiFENesin-DM 100/10mg/5ml SYR PO PRN (20:52)
[2022-04-29 22:00] VITALS: BP 171/88
[2022-04-30] MEDS: IPRATROPIUM BROM 0.5 MG/2.5ML INH SOL NEB SCH (02:00)
[2022-04-30] MEDS: HYDROcodone-ACET 5/325MG TAB PO PRN (02:39)
[2022-04-30 05:00] VITALS: BP 140/93
[2022-04-30] MEDS ORDERED: IPRATROPIUM BROM 0.5 MG/2.5ML INH SOL NEB PRN (05:30)
[2022-04-30] MEDS: ALBUTEROL SULF 2.5 MG/0.5ML(0.5%) NEB SOLN NEB PRN (06:08)
[2022-04-30] MEDS: guaiFENesin-DM 100/10mg/5ml SYR PO PRN (06:43)
[2022-04-30] MEDS: SODIUM CHLOR 0.9% PF (SALINE LOCK) 10ML VIAL/SYR IV SCH (06:44)
[2022-04-30 06:53] LABS: Basophils # (auto) 0 10 ^3/uL (0-0.2); Basophils % (auto) 0.1 % (0.0-2.0); Eosinophils # (auto) 0 10 ^3/uL (0-0.8); Hemoglobin 13.9 g/dL (12.2-16.2); Lymphocytes # (auto) 1.3 10 ^3/uL (0.4-5.4); Neutrophils # (auto) 8.8 10 ^3/uL (1.6-8.6); Nucleated Red Blood Cells % 0.1 %
[2022-04-30 06:56] LABS: Eosinophils % (auto) 0.1 % (0.0-7.0); Hematocrit 42.6 % (36.0-46.0); Lymphocytes % (auto) 11.7 % (10.0-50.0); Mean Corpuscular Hemoglobin 26.8 pg (28.0-32.0); Mean Corpuscular Hgb Conc. 32.7 g/dL (32.0-36.0); Monocytes % (auto) 8.8 % (0.0-12.0); Neutrophils % (auto) 79.3 % (37.0-80.0); Red Blood Cells 5.19 10^6/uL (4.0-5.20); Red Cell Distribution Width 15.1 % (11.8-14.3); White Blood Cell 11.1 10^3/uL (4.4-10.8)
[2022-04-30 07:18] LABS: Calcium 8.9 mg/dL (8.5-10.1); Potassium 3.7 mmol/L (3.5-5.1)
[2022-04-30 07:20] LABS: BUN/Creatinine Ratio 38.6
[2022-04-30 09:00] VITALS: BP 136/68
[2022-04-30] MEDS: methylPREDNISolone SOD SUCC 40 MG/ML VL IV SCH (09:28)
[2022-04-30] MEDS: LOSARTAN POTASSIUM 50 MG TAB PO SCH (09:29)
[2022-04-30] MEDS: PANTOPRAZOLE 40 MG/10 ML VIAL INJ IV SCH (09:29)
[2022-04-30] MEDS: ASPirin-EC 81 mg tab PO SCH (09:30)
[2022-04-30] MEDS: glipiZIDE 5 MG TAB PO SCH (09:30)
[2022-04-30] MEDS: FUROSEMIDE 40 MG TAB PO SCH (09:30)
[2022-04-30] MEDS: ATORVASTATIN 20 MG TAB PO SCH (09:30)
[2022-04-30] MEDS: METOPROLOL SUCCINATE XL 50 MG TAB PO SCH (09:31)
[2022-04-30] MEDS ORDERED: AZIT500T66 PO (10:44)
[2022-04-30] MEDS ORDERED: PRED20TA2 PO (10:44)
[2022-04-30] MEDS ORDERED: ALBUAER3 IN (10:44)
[2022-04-30 12:19] VITALS: BP 128/72
== END 2022-04-30 16:26 | disposition home or self-care (01) | DRG 194 ==
LOC: ER 14:16 → TELE 18:29 → TELE-WESTW 04-28 12:55 → UNDODISIN 04-28 13:00
PROVIDERS: ADMIT Nurse Practitioner Family; ATTEND Internal Medicine Pulmonary Disease
DX: I13.0 Hypertensive heart and chronic kidney disease with heart failure and stage 1 through stage 4 chronic kidney disease, or unspecified chronic kidney disease (principal); J96.21 Acute and chronic respiratory failure with hypoxia; E11.22 Type 2 diabetes mellitus with diabetic chronic kidney disease; I50.43 Acute on chronic combined systolic (congestive) and diastolic (congestive) heart failure; E11.65 Type 2 diabetes mellitus with hyperglycemia; E66.01 Morbid (severe) obesity due to excess calories; E78.5 Hyperlipidemia, unspecified; I16.0 Hypertensive urgency; J44.1 Chronic obstructive pulmonary disease with (acute) exacerbation; N18.9 Chronic kidney disease, unspecified; Z79.84 Long term (current) use of oral hypoglycemic drugs; Z80.1 Family history of malignant neoplasm of trachea, bronchus and lung; Z82.3 Family history of stroke; Z82.49 Family history of ischemic heart disease and other diseases of the circulatory system; Z82.5 Family history of asthma and other chronic lower respiratory diseases; Z83.3 Family history of diabetes mellitus; Z86.73 Personal history of transient ischemic attack (TIA), and cerebral infarction without residual deficits; Z99.81 Dependence on supplemental oxygen; Z90.49 Acquired absence of other specified parts of digestive tract; Z68.42 Body mass index [BMI] 45.0-49.9, adult; I25.2 Old myocardial infarction
CPT/HCPCS: 36415; 71045; 80048; 80053; 80061; 81001; 82962; 83036; 83735; 84443; 84484; 85025; 85379; 87426; 93005; 94640; 99291; C9113; G0378

== ENCOUNTER 2022-05-26 17:25 | Inpatient (IN) | payer MEDICAID ==
[~2022-05-26] VITALS: Ht 162.6 cm; Wt 138.0 kg
[~2022-05-26 17:25] MED LIST changes: +AZIT500T66 PO; -DOXY-332 PO; -FURO1TAB33 PO; +PRED20TA2 PO
[2022-05-26 18:39] LABS: Basophils # (auto) 0 10 ^3/uL (0-0.2); Basophils % (auto) 0.7 % (0.0-2.0); Eosinophils # (auto) 0 10 ^3/uL (0-0.8); Eosinophils % (auto) 0.5 % (0.0-7.0); Hemoglobin 11.9 g/dL (12.2-16.2); Monocytes # (auto) 0.5 10 ^3/uL (0-1.3); Nucleated Red Blood Cells % 0.1 %; White Blood Cell 6.2 10^3/uL (4.4-10.8)
[2022-05-26 18:42] LABS: Hematocrit 36.7 % (36.0-46.0); Lymphocytes % (auto) 16.1 % (10.0-50.0); Mean Corpuscular Hemoglobin 26.9 pg (28.0-32.0); Mean Corpuscular Hgb Conc. 32.4 g/dL (32.0-36.0); Mean Corpuscular Volume 82.8 fL (80.0-100.0); Monocytes % (auto) 8.5 % (0.0-12.0); Neutrophils # (auto) 4.6 10 ^3/uL (1.6-8.6); Neutrophils % (auto) 74.2 % (37.0-80.0); Red Blood Cells 4.44 10^6/uL (4.0-5.20); Red Cell Distribution Width 15.4 % (11.8-14.3)
[2022-05-26 18:53] LABS: INR 0.9 (0.9-1.15)
[2022-05-26 18:57] LABS: Albumin 3.2 g/dL (3.4-5.0); Calcium 8.6 mg/dL (8.5-10.1); Potassium 4.3 mmol/L (3.5-5.1)
[2022-05-26 19:01] LABS: BUN/Creatinine Ratio 11.4 (10.0-20.0); Bilirubin, Total 0.3 mg/dL (0.2-1.0); Total Protein 6.6 g/dL (6.4-8.2)
[2022-05-27] MEDS ORDERED: DEXTROSE (50%) 50ML SYRG IV PRN (10:15)
[2022-05-27] MEDS ORDERED: ERGOCALCIFEROL 50,000 UNIT(1.25MG) CAP PO SCH (10:15)
[2022-05-27] MEDS ORDERED: IPRATROPIUM BROM 0.5 MG/2.5ML INH SOL NEB PRN (10:30)
[2022-05-27] MEDS ORDERED: ALBUTEROL SULF 2.5 MG/0.5ML(0.5%) NEB SOLN NEB PRN (10:30)
[2022-05-27] MEDS: GABAPENTIN 300 MG CAP PO SCH ×2 (10:49→22:27)
[2022-05-27] MEDS: METOPROLOL SUCCINATE XL 50 MG TAB PO SCH (11:51)
[2022-05-27] MEDS: ACCU-CHEK COMFORT CURVE STRIP VI SCH ×3 (11:52→22:00)
[2022-05-27] MEDS: InsuLIN REG 1unit/0.01ml Soln (100units/ml) SC SCH ×3 (11:57→22:00)
[2022-05-27] MEDS: PANTOPRAZOLE 40 MG/10 ML VIAL INJ IV SCH ×2 (15:30→22:27)
[2022-05-27] MEDS: methylPREDNISolone SOD SUCC 125 MG/2 ML VL IV SCH ×2 (15:44→22:27)
[2022-05-27] MEDS: ACETAMINOPHEN 325 MG TAB PO PRN ×2 (15:45→20:36)
[2022-05-27] MEDS ORDERED: hydrALAZINE HCL 20 MG/ML VL IV PRN (18:15)
[2022-05-27 18:18] LABS: Hematocrit 38.5 % (36.0-46.0); Hemoglobin 12.4 g/dL (12.2-16.2)
[2022-05-27] MEDS: FUROSEMIDE 40 MG/4 ML VIAL IV SCH (18:40)
[2022-05-27] MEDS: FERROUS SULFATE 325mg EC TAB PO SCH (18:40)
[2022-05-27] MEDS ORDERED: InsuLIN REG 1unit/0.01ml Soln (100units/ml) SC ONE (22:00)
[2022-05-27] MEDS: ATORVASTATIN 20 MG TAB PO SCH (22:28)
[2022-05-27] MEDS: CARVEDILOL 12.5 MG TAB PO SCH (22:30)
[2022-05-28] VITALS (9 sets, daily range): BP systolic 98–135; BP diastolic 51–82
[2022-05-28] MEDS ORDERED: hydrALAZINE HCL 20 MG/ML VL IV ONE
[2022-05-28] MEDS: HYDROcodone-ACET 5/325MG TAB PO PRN ×3 (00:23→20:43)
[2022-05-28] MEDS: amLODIPine BESYLATE 5 MG TAB PO SCH ×2 (00:25→10:09)
[2022-05-28 01:02] LABS: Hemoglobin 12.9 g/dL (12.2-16.2)
[2022-05-28] MEDS: methylPREDNISolone SOD SUCC 125 MG/2 ML VL IV SCH ×3 (05:38→22:07)
[2022-05-28] MEDS: FUROSEMIDE 40 MG/4 ML VIAL IV SCH ×2 (05:45→18:00)
[2022-05-28 06:24] LABS: Basophils # (auto) 0 10 ^3/uL (0-0.2); Basophils % (auto) 0.1 % (0.0-2.0); Eosinophils # (auto) 0 10 ^3/uL (0-0.8); Hematocrit 38.3 % (36.0-46.0); Hemoglobin 12.3 g/dL (12.2-16.2); Lymphocytes # (auto) 0.6 10 ^3/uL (0.4-5.4); Lymphocytes % (auto) 6.7 % (10.0-50.0); Mean Corpuscular Hemoglobin 27.1 pg (28.0-32.0); Mean Corpuscular Hgb Conc. 32.2 g/dL (32.0-36.0); Mean Corpuscular Volume 84.2 fL (80.0-100.0); Monocytes # (auto) 0.1 10 ^3/uL (0-1.3); Monocytes % (auto) 1.3 % (0.0-12.0); Neutrophils # (auto) 8.5 10 ^3/uL (1.6-8.6); Neutrophils % (auto) 91.9 % (37.0-80.0); Red Blood Cells 4.54 10^6/uL (4.0-5.20); Red Cell Distribution Width 15.6 % (11.8-14.3); White Blood Cell 9.3 10^3/uL (4.4-10.8)
[2022-05-28] MEDS: ACCU-CHEK COMFORT CURVE STRIP VI SCH ×4 (06:28→22:15)
[2022-05-28] MEDS: InsuLIN REG 1unit/0.01ml Soln (100units/ml) SC SCH ×4 (06:29→22:23)
[2022-05-28 06:42] LABS: Calcium 8.6 mg/dL (8.5-10.1); Potassium 4.2 mmol/L (3.5-5.1)
[2022-05-28 06:45] LABS: Albumin 3.2 g/dL (3.4-5.0); BUN/Creatinine Ratio 16.9 (10.0-20.0)
[2022-05-28 06:47] LABS: Bilirubin, Total 0.4 mg/dL (0.2-1.0); Total Protein 7.5 g/dL (6.4-8.2)
[2022-05-28] MEDS: FERROUS SULFATE 325mg EC TAB PO SCH ×2 (07:03→17:53)
[2022-05-28] MEDS ORDERED: ENOXAPARIN SOD 40 MG/0.4 ML SYRINGE SC SCH (10:00)
[2022-05-28] MEDS ORDERED: PATIENTS OWN MEDICATION (Atorvastatin Calcium 1 TAB) PO SCH (10:00)
[2022-05-28] MEDS ORDERED: ASPirin-EC 81 mg tab PO SCH (10:00)
[2022-05-28] MEDS ORDERED: PANTOPRAZOLE 40 MG/10 ML VIAL INJ IV SCH (10:00)
[2022-05-28] MEDS: PANTOPRAZOLE 40 MG/10 ML VIAL INJ IV SCH ×2 (10:07→22:07)
[2022-05-28] MEDS: SPIRONOLACTONE 25 MG TAB PO SCH (10:07)
[2022-05-28] MEDS: LOSARTAN POTASSIUM 50 MG TAB PO SCH (10:08)
[2022-05-28] MEDS: CARVEDILOL 12.5 MG TAB PO SCH ×3 (10:08→23:32)
[2022-05-28] MEDS: GABAPENTIN 300 MG CAP PO SCH ×2 (10:09→22:06)
[2022-05-28] MEDS: METOPROLOL SUCCINATE XL 50 MG TAB PO SCH (10:09)
[2022-05-28 12:06] LABS: Hematocrit 37.9 % (36.0-46.0); Hemoglobin 11.9 g/dL (12.2-16.2)
[2022-05-28] MEDS ORDERED: DOCUSATE SOD 100 MG CAP PO PRN (14:00)
[2022-05-28 18:00] LABS: Hemoglobin 12.3 g/dL (12.2-16.2)
[2022-05-28 18:02] LABS: Hematocrit 38.8 % (36.0-46.0)
[2022-05-28] MEDS: ATORVASTATIN 20 MG TAB PO SCH (22:06)
[2022-05-29] MEDS: HYDROcodone-ACET 5/325MG TAB PO PRN ×2 (00:34→22:10)
[2022-05-29 05:00] VITALS: BP 100/52
[2022-05-29 05:26] LABS: Basophils # (auto) 0 10 ^3/uL (0-0.2); Basophils % (auto) 0.1 % (0.0-2.0); Eosinophils # (auto) 0 10 ^3/uL (0-0.8); Lymphocytes # (auto) 0.7 10 ^3/uL (0.4-5.4)
[2022-05-29 05:27] LABS: Hematocrit 36.8 % (36.0-46.0); Hemoglobin 11.7 g/dL (12.2-16.2); Lymphocytes % (auto) 5.1 % (10.0-50.0); Mean Corpuscular Hemoglobin 26.3 pg (28.0-32.0); Mean Corpuscular Hgb Conc. 31.9 g/dL (32.0-36.0); Mean Corpuscular Volume 82.5 fL (80.0-100.0); Monocytes # (auto) 0.4 10 ^3/uL (0-1.3); Monocytes % (auto) 3.5 % (0.0-12.0); Neutrophils # (auto) 11.7 10 ^3/uL (1.6-8.6); Neutrophils % (auto) 91.3 % (37.0-80.0); Red Blood Cells 4.47 10^6/uL (4.0-5.20); Red Cell Distribution Width 15.7 % (11.8-14.3); White Blood Cell 12.8 10^3/uL (4.4-10.8)
[2022-05-29 05:42] LABS: Potassium 4.7 mmol/L (3.5-5.1)
[2022-05-29 05:47] LABS: BUN/Creatinine Ratio 24.2 (10.0-20.0); Calcium 8.8 mg/dL (8.5-10.1)
[2022-05-29] MEDS: FERROUS SULFATE 325mg EC TAB PO SCH ×2 (06:33→17:38)
[2022-05-29] MEDS: methylPREDNISolone SOD SUCC 125 MG/2 ML VL IV SCH ×3 (06:34→22:10)
[2022-05-29] MEDS: FUROSEMIDE 40 MG/4 ML VIAL IV SCH ×2 (06:35→18:00)
[2022-05-29] MEDS: ACCU-CHEK COMFORT CURVE STRIP VI SCH ×4 (06:35→22:11)
[2022-05-29] MEDS: InsuLIN REG 1unit/0.01ml Soln (100units/ml) SC SCH ×4 (06:39→22:22)
[2022-05-29 09:00] VITALS: BP 105/58
[2022-05-29] MEDS: PANTOPRAZOLE 40 MG/10 ML VIAL INJ IV SCH ×2 (10:01→22:10)
[2022-05-29] MEDS: amLODIPine BESYLATE 5 MG TAB PO SCH (10:02)
[2022-05-29] MEDS: LOSARTAN POTASSIUM 50 MG TAB PO SCH (10:03)
[2022-05-29] MEDS: CARVEDILOL 12.5 MG TAB PO SCH ×2 (10:03→22:09)
[2022-05-29] MEDS: GABAPENTIN 300 MG CAP PO SCH ×2 (10:03→22:09)
[2022-05-29] MEDS: PANTOPRAZOLE 40 MG TAB PO SCH (10:04)
[2022-05-29] MEDS: SPIRONOLACTONE 25 MG TAB PO SCH (10:04)
[2022-05-29] MEDS: METOPROLOL SUCCINATE XL 50 MG TAB PO SCH (10:04)
[2022-05-29 13:00] VITALS: BP 109/57
[2022-05-29 17:00] VITALS: BP 110/47
[2022-05-29 22:00] VITALS: BP 121/80
[2022-05-29] MEDS: ATORVASTATIN 20 MG TAB PO SCH (22:10)
[2022-05-29] MEDS: INSULIN LANTUS (GLARGINE) 1 /0.01ml (100units/ml) SC SCH (22:16)
[2022-05-30 05:00] VITALS: BP 103/61
[2022-05-30 05:44] LABS: Basophils # (auto) 0 10 ^3/uL (0-0.2); Eosinophils # (auto) 0 10 ^3/uL (0-0.8); Hemoglobin 11.5 g/dL (12.2-16.2); Lymphocytes # (auto) 0.5 10 ^3/uL (0.4-5.4); Monocytes # (auto) 0.3 10 ^3/uL (0-1.3); Red Blood Cells 4.29 10^6/uL (4.0-5.20); Red Cell Distribution Width 15.5 % (11.8-14.3)
[2022-05-30 05:45] LABS: Lymphocytes % (auto) 5.3 % (10.0-50.0); Mean Corpuscular Hemoglobin 26.8 pg (28.0-32.0); Mean Corpuscular Hgb Conc. 32.8 g/dL (32.0-36.0); Mean Corpuscular Volume 81.6 fL (80.0-100.0); Monocytes % (auto) 3.2 % (0.0-12.0); Neutrophils # (auto) 8.6 10 ^3/uL (1.6-8.6); Neutrophils % (auto) 91.5 % (37.0-80.0); White Blood Cell 9.5 10^3/uL (4.4-10.8)
[2022-05-30 05:50] LABS: BUN/Creatinine Ratio 38.4 (10.0-20.0); Calcium 8.7 mg/dL (8.5-10.1); Potassium 4.7 mmol/L (3.5-5.1)
[2022-05-30] MEDS: FERROUS SULFATE 325mg EC TAB PO SCH ×2 (06:28→16:54)
[2022-05-30] MEDS: FUROSEMIDE 40 MG/4 ML VIAL IV SCH ×2 (06:28→17:47)
[2022-05-30] MEDS: methylPREDNISolone SOD SUCC 125 MG/2 ML VL IV SCH ×3 (06:29→22:09)
[2022-05-30] MEDS: ACCU-CHEK COMFORT CURVE STRIP VI SCH ×4 (06:32→22:10)
[2022-05-30] MEDS: InsuLIN REG 1unit/0.01ml Soln (100units/ml) SC SCH ×4 (06:34→22:20)
[2022-05-30 08:30] VITALS: BP 101/48
[2022-05-30 08:45] VITALS: BP 112/66
[2022-05-30] MEDS: PANTOPRAZOLE 40 MG TAB PO SCH (10:00)
[2022-05-30] MEDS: SPIRONOLACTONE 25 MG TAB PO SCH (10:24)
[2022-05-30] MEDS: PANTOPRAZOLE 40 MG/10 ML VIAL INJ IV SCH (10:24)
[2022-05-30] MEDS: CARVEDILOL 12.5 MG TAB PO SCH ×2 (10:25→22:10)
[2022-05-30] MEDS: LOSARTAN POTASSIUM 50 MG TAB PO SCH (10:25)
[2022-05-30] MEDS: amLODIPine BESYLATE 5 MG TAB PO SCH (10:26)
[2022-05-30] MEDS: GABAPENTIN 300 MG CAP PO SCH ×2 (10:26→22:09)
[2022-05-30] MEDS: METOPROLOL SUCCINATE XL 50 MG TAB PO SCH (10:27)
[2022-05-30 12:30] VITALS: BP 91/48
[2022-05-30 16:58] VITALS: BP 97/59
[2022-05-30 22:00] VITALS: BP 105/60
[2022-05-30] MEDS: ATORVASTATIN 20 MG TAB PO SCH (22:09)
[2022-05-30] MEDS: HYDROcodone-ACET 5/325MG TAB PO PRN (22:09)
[2022-05-30] MEDS: INSULIN LANTUS (GLARGINE) 1 /0.01ml (100units/ml) SC SCH (22:19)
[2022-05-31 05:00] VITALS: BP 109/71
[2022-05-31 06:05] LABS: Basophils # (auto) 0 10 ^3/uL (0-0.2); Basophils % (auto) 0.4 % (0.0-2.0); Eosinophils # (auto) 0 10 ^3/uL (0-0.8); Hematocrit 34.5 % (36.0-46.0); Hemoglobin 11.6 g/dL (12.2-16.2); Lymphocytes # (auto) 0.4 10 ^3/uL (0.4-5.4); Mean Corpuscular Hemoglobin 26.7 pg (28.0-32.0); Mean Corpuscular Hgb Conc. 33.6 g/dL (32.0-36.0); Mean Corpuscular Volume 79.4 fL (80.0-100.0); Monocytes # (auto) 0.3 10 ^3/uL (0-1.3); Monocytes % (auto) 3.9 % (0.0-12.0); Neutrophils # (auto) 7.1 10 ^3/uL (1.6-8.6); Neutrophils % (auto) 90.7 % (37.0-80.0); Nucleated Red Blood Cells % 0.1 %; Red Blood Cells 4.35 10^6/uL (4.0-5.20); Red Cell Distribution Width 15.5 % (11.8-14.3); White Blood Cell 7.8 10^3/uL (4.4-10.8)
[2022-05-31 06:23] LABS: Calcium 8.8 mg/dL (8.5-10.1); Potassium 4.5 mmol/L (3.5-5.1)
[2022-05-31 06:25] LABS: BUN/Creatinine Ratio 51.1 (10.0-20.0)
[2022-05-31] MEDS: methylPREDNISolone SOD SUCC 125 MG/2 ML VL IV SCH ×3 (06:32→21:32)
[2022-05-31] MEDS: ACCU-CHEK COMFORT CURVE STRIP VI SCH ×4 (06:32→21:40)
[2022-05-31] MEDS: FERROUS SULFATE 325mg EC TAB PO SCH ×2 (06:32→17:02)
[2022-05-31] MEDS: FUROSEMIDE 40 MG/4 ML VIAL IV SCH ×2 (06:32→17:04)
[2022-05-31] MEDS: InsuLIN REG 1unit/0.01ml Soln (100units/ml) SC SCH ×4 (06:33→21:44)
[2022-05-31 09:19] VITALS: BP 95/51
[2022-05-31] MEDS: LOSARTAN POTASSIUM 50 MG TAB PO SCH (10:00)
[2022-05-31] MEDS: METOPROLOL SUCCINATE XL 50 MG TAB PO SCH (10:00)
[2022-05-31] MEDS: amLODIPine BESYLATE 5 MG TAB PO SCH (10:00)
[2022-05-31] MEDS: CARVEDILOL 12.5 MG TAB PO SCH ×2 (10:00→21:31)
[2022-05-31] MEDS ORDERED: ALBUAER3 IN (10:24)
[2022-05-31] MEDS ORDERED: METF-929 PO (10:24)
[2022-05-31] MEDS ORDERED: PRED20TA2 PO (10:24)
[2022-05-31] MEDS ORDERED: ERGO1CAP23 PO (10:24)
[2022-05-31] MEDS ORDERED: ASPI-543 PO (10:24)
[2022-05-31] MEDS ORDERED: CARV25TA PO (10:24)
[2022-05-31] MEDS ORDERED: SPIR25TA PO (10:24)
[2022-05-31] MEDS ORDERED: METO25TA93 PO (10:24)
[2022-05-31] MEDS ORDERED: FURO40TA4 PO (10:24)
[2022-05-31] MEDS ORDERED: LOSA-69 PO (10:24)
[2022-05-31] MEDS ORDERED: ATOR10TA52 PO (10:24)
[2022-05-31] MEDS ORDERED: GABA600T PO (10:24)
[2022-05-31] MEDS ORDERED: FER325T PO (10:24)
[2022-05-31] MEDS ORDERED: GLIP10TA16 PO (10:24)
[2022-05-31] MEDS: SPIRONOLACTONE 25 MG TAB PO SCH (10:37)
[2022-05-31] MEDS: PANTOPRAZOLE 40 MG TAB PO SCH (10:37)
[2022-05-31] MEDS: GABAPENTIN 300 MG CAP PO SCH ×2 (10:38→21:30)
[2022-05-31 12:10] LABS: Hepatitis C Antibody Negative (Negative)
[2022-05-31 13:07] VITALS: BP 126/72
[2022-05-31 17:00] VITALS: BP 100/79
[2022-05-31] MEDS: ATORVASTATIN 20 MG TAB PO SCH (21:30)
[2022-05-31] MEDS: INSULIN LANTUS (GLARGINE) 1 /0.01ml (100units/ml) SC SCH (21:43)
[2022-05-31 22:00] VITALS: BP 137/68
[2022-05-31] MEDS: HYDROcodone-ACET 5/325MG TAB PO PRN (23:11)
[2022-06-01 05:00] VITALS: BP 131/57
[2022-06-01] MEDS: methylPREDNISolone SOD SUCC 125 MG/2 ML VL IV SCH ×2 (06:31→14:00)
[2022-06-01] MEDS: FUROSEMIDE 40 MG/4 ML VIAL IV SCH (06:32)
[2022-06-01] MEDS: FERROUS SULFATE 325mg EC TAB PO SCH (06:32)
[2022-06-01] MEDS: ACCU-CHEK COMFORT CURVE STRIP VI SCH ×2 (06:33→11:31)
[2022-06-01] MEDS: InsuLIN REG 1unit/0.01ml Soln (100units/ml) SC SCH ×2 (06:46→12:23)
[2022-06-01 09:00] VITALS: BP 141/77
[2022-06-01] MEDS: amLODIPine BESYLATE 5 MG TAB PO SCH (09:41)
[2022-06-01] MEDS: GABAPENTIN 300 MG CAP PO SCH (09:42)
[2022-06-01] MEDS: PANTOPRAZOLE 40 MG TAB PO SCH (09:42)
[2022-06-01] MEDS: SPIRONOLACTONE 25 MG TAB PO SCH (09:42)
[2022-06-01] MEDS: LOSARTAN POTASSIUM 50 MG TAB PO SCH (09:42)
[2022-06-01] MEDS: METOPROLOL SUCCINATE XL 50 MG TAB PO SCH ×2 (10:00→11:57)
[2022-06-01 13:00] VITALS: BP 115/65
== END 2022-06-01 15:40 | disposition home or self-care (01) | DRG 194 ==
LOC: ER 17:25 → TELE 05-27 10:18 → TELE-EAST 05-27 23:34
PROVIDERS: ADMIT Nurse Practitioner Family; ATTEND Internal Medicine Pulmonary Disease
DX: I13.0 Hypertensive heart and chronic kidney disease with heart failure and stage 1 through stage 4 chronic kidney disease, or unspecified chronic kidney disease (principal); J96.11 Chronic respiratory failure with hypoxia; E44.1 Mild protein-calorie malnutrition; K57.91 Diverticulosis of intestine, part unspecified, without perforation or abscess with bleeding; J44.1 Chronic obstructive pulmonary disease with (acute) exacerbation; K76.0 Fatty (change of) liver, not elsewhere classified; D50.0 Iron deficiency anemia secondary to blood loss (chronic); E11.65 Type 2 diabetes mellitus with hyperglycemia; E66.01 Morbid (severe) obesity due to excess calories; E78.5 Hyperlipidemia, unspecified; I50.43 Acute on chronic combined systolic (congestive) and diastolic (congestive) heart failure; Z20.822 Contact with and (suspected) exposure to COVID-19; K40.20 Bilateral inguinal hernia, without obstruction or gangrene, not specified as recurrent; K42.9 Umbilical hernia without obstruction or gangrene; I25.2 Old myocardial infarction; Z86.73 Personal history of transient ischemic attack (TIA), and cerebral infarction without residual deficits; Z90.49 Acquired absence of other specified parts of digestive tract; Z98.891 History of uterine scar from previous surgery; Z68.42 Body mass index [BMI] 45.0-49.9, adult
CPT/HCPCS: 36415; 36600; 71045; 74176; 80048; 80053; 82270; 82805; 82962; 83880; 84484; 85014; 85018; 85025; 85610; 85730; 86803; 87081; 87340; 87426; 93005; 93306; 94640; C9113; G0378; J1815

== ENCOUNTER 2022-06-21 15:42 | Inpatient (IN) | payer MEDICAID ==
[~2022-06-21] VITALS: Ht 162.6 cm; Wt 132.7 kg
[~2022-06-21 15:42] MED LIST changes: -AZIT500T66 PO
[2022-06-21 16:25] LABS: Basophils # (auto) 0.1 10 ^3/uL (0-0.2); Basophils % (auto) 0.9 % (0.0-2.0); Eosinophils # (auto) 0 10 ^3/uL (0-0.8); Eosinophils % (auto) 0.6 % (0.0-7.0); Hemoglobin 11.2 g/dL (12.2-16.2); Lymphocytes % (auto) 16.9 % (10.0-50.0); Mean Corpuscular Hemoglobin 25.8 pg (28.0-32.0); Mean Corpuscular Hgb Conc. 31.2 g/dL (32.0-36.0); Mean Corpuscular Volume 82.5 fL (80.0-100.0); Monocytes # (auto) 0.5 10 ^3/uL (0-1.3); Monocytes % (auto) 8.5 % (0.0-12.0); Neutrophils # (auto) 4.2 10 ^3/uL (1.6-8.6); Neutrophils % (auto) 73.1 % (37.0-80.0); Nucleated Red Blood Cells % 0.1 %; Red Blood Cells 4.36 10^6/uL (4.0-5.20); Red Cell Distribution Width 16.2 % (11.8-14.3); White Blood Cell 5.7 10^3/uL (4.4-10.8)
[2022-06-21 16:41] LABS: Albumin 3.6 g/dL (3.4-5.0); Calcium 8.9 mg/dL (8.5-10.1); Potassium 3.7 mmol/L (3.5-5.1)
[2022-06-21 16:45] LABS: BUN/Creatinine Ratio 6.6 (10.0-20.0); Bilirubin, Total 0.4 mg/dL (0.2-1.0); Total Protein 6.6 g/dL (6.4-8.2)
[2022-06-21 16:51] LABS: INR 0.91 (0.9-1.15); Partial Thromboplastin Time 24.1 sec (24.6-33.4)
[2022-06-21] MEDS ORDERED: CLINDAMYCIN 600MG IV 50 ML IV ONE (17:45)
[2022-06-21 20:23] LABS: Urine Bacteria NONE SEEN /hpf (None Seen); Urine Blood Negative /uL (Negative); Urine Specific Gravity 1.027 (1.001-1.035); Urine WBC <1 /hpf (0 - 5)
[2022-06-22] MEDS ORDERED: DEXTROSE (50%) 50ML SYRG IV PRN (03:45)
[2022-06-22] MEDS ORDERED: ALBUTEROL SULF 2.5 MG/0.5ML(0.5%) NEB SOLN NEB PRN (03:45)
[2022-06-22] MEDS ORDERED: hydrALAZINE HCL 20 MG/ML VL IV PRN (03:45)
[2022-06-22] MEDS ORDERED: ERGOCALCIFEROL 50,000 UNIT(1.25MG) CAP PO SCH (03:45)
[2022-06-22] MEDS ORDERED: IPRATROPIUM BROM 0.5 MG/2.5ML INH SOL NEB PRN (03:45)
[2022-06-22 04:08] VITALS: BP 186/93
[2022-06-22] MEDS ORDERED: NITROGLYCERIN 0.4 MG SL TAB SL PRN (05:00)
[2022-06-22] MEDS ORDERED: MORPHINE SULFATE INJ 2 MG/ml SYRG IV PRN ×2 (05:00)
[2022-06-22] MEDS ORDERED: ACETAMINOPHEN 325 MG TAB PO PRN (05:00)
[2022-06-22] MEDS: cloNIDine HCL 0.1 MG TAB PO SCH ×2 (05:28→09:30)
[2022-06-22] MEDS: INSULIN LANTUS (GLARGINE) 1 /0.01ml (100units/ml) SC SCH ×2 (05:28→22:29)
[2022-06-22 05:58] LABS: Basophils # (auto) 0 10 ^3/uL (0-0.2); Basophils % (auto) 0.6 % (0.0-2.0); Eosinophils # (auto) 0.1 10 ^3/uL (0-0.8); Eosinophils % (auto) 1.3 % (0.0-7.0); Hematocrit 34.1 % (36.0-46.0); Hemoglobin 10.8 g/dL (12.2-16.2); Lymphocytes % (auto) 16.9 % (10.0-50.0); Mean Corpuscular Hemoglobin 26.4 pg (28.0-32.0); Mean Corpuscular Hgb Conc. 31.7 g/dL (32.0-36.0); Mean Corpuscular Volume 83.3 fL (80.0-100.0); Monocytes # (auto) 0.6 10 ^3/uL (0-1.3); Monocytes % (auto) 9.9 % (0.0-12.0); Neutrophils % (auto) 71.3 % (37.0-80.0); Red Blood Cells 4.09 10^6/uL (4.0-5.20); Red Cell Distribution Width 15.8 % (11.8-14.3); White Blood Cell 5.7 10^3/uL (4.4-10.8)
[2022-06-22] MEDS: ALBUTEROL SULF 2.5 MG/0.5ML(0.5%) NEB SOLN NEB SCH ×3 (06:23→17:53)
[2022-06-22] MEDS: IPRATROPIUM BROM 0.5 MG/2.5ML INH SOL NEB SCH ×3 (06:23→17:53)
[2022-06-22 06:33] LABS: Albumin 3.2 g/dL (3.4-5.0); Calcium 8.5 mg/dL (8.5-10.1); Potassium 3.9 mmol/L (3.5-5.1)
[2022-06-22 06:37] LABS: Bilirubin, Total 0.3 mg/dL (0.2-1.0); Total Protein 6.9 g/dL (6.4-8.2)
[2022-06-22] MEDS: cefTRIAXone 1GM/50ML D5W 50 ML IV SCH (06:45)
[2022-06-22] MEDS: FERROUS SULFATE 325mg EC TAB PO SCH ×2 (06:46→16:52)
[2022-06-22 06:47] LABS: Lactic Acid w/Reflex 2.2 mmol/L (0.4-2.0)
[2022-06-22] MEDS: InsuLIN REG 1unit/0.01ml Soln (100units/ml) SC SCH ×4 (06:47→22:29)
[2022-06-22] MEDS: ACCU-CHEK COMFORT CURVE STRIP VI SCH ×4 (06:48→22:28)
[2022-06-22] MEDS: CLINDAMYCIN 600MG IV 50 ML IV SCH ×3 (07:39→22:28)
[2022-06-22] MEDS: HYDROcodone-ACET 5/325MG TAB PO PRN ×2 (08:21→22:28)
[2022-06-22] MEDS: ENOXAPARIN SOD 40 MG/0.4 ML SYRINGE SC SCH (09:28)
[2022-06-22] MEDS: PANTOPRAZOLE 40 MG/10 ML VIAL INJ IV SCH (09:28)
[2022-06-22] MEDS: GABAPENTIN 300 MG CAP PO SCH ×2 (09:28→22:28)
[2022-06-22] MEDS: SPIRONOLACTONE 25 MG TAB PO SCH (09:29)
[2022-06-22] MEDS: CARVEDILOL 12.5 MG TAB PO SCH ×2 (09:29→22:45)
[2022-06-22] MEDS: LOSARTAN POTASSIUM 50 MG TAB PO SCH (09:33)
[2022-06-22] MEDS: ASPirin-EC 81 mg tab PO SCH (09:33)
[2022-06-22] MEDS ORDERED: PATIENTS OWN MEDICATION (Carvedilol (Coreg) 1 TAB) PO SCH (10:00)
[2022-06-22] MEDS ORDERED: FUROSEMIDE 20 MG/2 ML VIAL IV ONE (13:15)
[2022-06-22 14:49] LABS: Calcium 8.3 mg/dL (8.5-10.1)
[2022-06-22 14:51] LABS: BUN/Creatinine Ratio 13.4 (10.0-20.0)
[2022-06-22 22:00] VITALS: BP 109/57
[2022-06-23] MEDS: ALBUTEROL SULF 2.5 MG/0.5ML(0.5%) NEB SOLN NEB SCH ×4 (00:58→19:21)
[2022-06-23] MEDS: IPRATROPIUM BROM 0.5 MG/2.5ML INH SOL NEB SCH ×4 (00:58→19:21)
[2022-06-23 05:00] VITALS: BP 120/82
[2022-06-23] MEDS: CLINDAMYCIN 600MG IV 50 ML IV SCH ×3 (05:08→21:42)
[2022-06-23] MEDS: HYDROcodone-ACET 5/325MG TAB PO PRN ×2 (05:08→21:49)
[2022-06-23] MEDS: InsuLIN REG 1unit/0.01ml Soln (100units/ml) SC SCH ×4 (06:27→21:35)
[2022-06-23] MEDS: FERROUS SULFATE 325mg EC TAB PO SCH ×2 (06:30→16:54)
[2022-06-23] MEDS: ACCU-CHEK COMFORT CURVE STRIP VI SCH ×4 (06:30→21:42)
[2022-06-23 06:31] LABS: Basophils # (auto) 0 10 ^3/uL (0-0.2); Eosinophils # (auto) 0.1 10 ^3/uL (0-0.8); Lymphocytes # (auto) 0.9 10 ^3/uL (0.4-5.4); Monocytes # (auto) 0.6 10 ^3/uL (0-1.3)
[2022-06-23 06:32] LABS: Potassium 4.6 mmol/L (3.5-5.1)
[2022-06-23 06:33] LABS: Basophils % (auto) 0.7 % (0.0-2.0); Eosinophils % (auto) 1.6 % (0.0-7.0); Hematocrit 33.5 % (36.0-46.0); Hemoglobin 10.5 g/dL (12.2-16.2); Lymphocytes % (auto) 13.5 % (10.0-50.0); Mean Corpuscular Hemoglobin 26.3 pg (28.0-32.0); Mean Corpuscular Hgb Conc. 31.4 g/dL (32.0-36.0); Mean Corpuscular Volume 83.9 fL (80.0-100.0); Monocytes % (auto) 8.9 % (0.0-12.0); Neutrophils # (auto) 5.2 10 ^3/uL (1.6-8.6); Neutrophils % (auto) 75.3 % (37.0-80.0); Red Blood Cells 3.99 10^6/uL (4.0-5.20); Red Cell Distribution Width 15.8 % (11.8-14.3); White Blood Cell 6.9 10^3/uL (4.4-10.8)
[2022-06-23 06:40] LABS: Albumin 3.1 g/dL (3.4-5.0); BUN/Creatinine Ratio 19.4 (10.0-20.0); Bilirubin, Total 0.2 mg/dL (0.2-1.0); Total Protein 6.6 g/dL (6.4-8.2)
[2022-06-23] MEDS: cefTRIAXone 1GM/50ML D5W 50 ML IV SCH (08:14)
[2022-06-23 08:51] VITALS: BP 101/58
[2022-06-23] MEDS ORDERED: OPTISON 3ml Vial for INJ IV ONE (09:24)
[2022-06-23] MEDS: SPIRONOLACTONE 25 MG TAB PO SCH (09:38)
[2022-06-23] MEDS: ENOXAPARIN SOD 40 MG/0.4 ML SYRINGE SC SCH (09:38)
[2022-06-23] MEDS: LOSARTAN POTASSIUM 50 MG TAB PO SCH (09:38)
[2022-06-23] MEDS: PANTOPRAZOLE 40 MG/10 ML VIAL INJ IV SCH (09:38)
[2022-06-23] MEDS: ASPirin-EC 81 mg tab PO SCH (09:39)
[2022-06-23] MEDS: cloNIDine HCL 0.1 MG TAB PO SCH (09:39)
[2022-06-23] MEDS: GABAPENTIN 300 MG CAP PO SCH ×2 (09:39→21:42)
[2022-06-23] MEDS: CARVEDILOL 12.5 MG TAB PO SCH ×2 (09:39→21:54)
[2022-06-23] MEDS ORDERED: FUROSEMIDE 20 MG/2 ML VIAL IV SCH (10:00)
[2022-06-23 12:30] VITALS: BP 117/78
[2022-06-23 16:40] VITALS: BP 105/73
[2022-06-23] MEDS: FUROSEMIDE 40 MG/4 ML VIAL IV SCH (18:00)
[2022-06-23] MEDS: INSULIN LANTUS (GLARGINE) 1 /0.01ml (100units/ml) SC SCH (21:52)
[2022-06-23 22:00] VITALS: BP 121/64
[2022-06-24] MEDS: IPRATROPIUM BROM 0.5 MG/2.5ML INH SOL NEB SCH ×4 (00:54→19:37)
[2022-06-24] MEDS: ALBUTEROL SULF 2.5 MG/0.5ML(0.5%) NEB SOLN NEB SCH ×4 (00:54→19:37)
[2022-06-24 05:00] VITALS: BP_SYST 105; BP_SYST 155; BP_DIAS 61; BP_DIAS 76
[2022-06-24 06:08] LABS: Anion Gap 8 (5-15); BUN/Creatinine Ratio 23.9 (10.0-20.0); Blood Urea Nitrogen 16 mg/dL (7-18); Calcium 8.1 mg/dL (8.5-10.1); Carbon Dioxide 27 mmol/L (21-32); Chloride 100 mmol/L (98-107); GFR African American 118 mL/min; GFR Non-African American 98 mL/min; Glucose 170 mg/dL (74-106); Potassium 4.6 mmol/L (3.5-5.1); Sodium 135 mmol/L (136-145)
[2022-06-24 06:18] LABS: Basophils # (auto) 0 10 ^3/uL (0-0.2); Basophils % (auto) 0.5 % (0.0-2.0); Eosinophils # (auto) 0.1 10 ^3/uL (0-0.8); Eosinophils % (auto) 1.7 % (0.0-7.0); Hematocrit 32.9 % (36.0-46.0); Hemoglobin 10.4 g/dL (12.2-16.2); Lymphocytes % (auto) 15.7 % (10.0-50.0); Mean Corpuscular Hemoglobin 26.5 pg (28.0-32.0); Mean Corpuscular Hgb Conc. 31.5 g/dL (32.0-36.0); Mean Corpuscular Volume 84.2 fL (80.0-100.0); Monocytes # (auto) 0.8 10 ^3/uL (0-1.3); Monocytes % (auto) 12.1 % (0.0-12.0); Neutrophils # (auto) 4.4 10 ^3/uL (1.6-8.6); Nucleated Red Blood Cells % 0.1 %; Red Blood Cells 3.91 10^6/uL (4.0-5.20); Red Cell Distribution Width 15.8 % (11.8-14.3); White Blood Cell 6.3 10^3/uL (4.4-10.8)
[2022-06-24] MEDS: FUROSEMIDE 40 MG/4 ML VIAL IV SCH ×2 (06:31→17:42)
[2022-06-24] MEDS: CLINDAMYCIN 600MG IV 50 ML IV SCH ×3 (06:31→22:29)
[2022-06-24] MEDS: ACCU-CHEK COMFORT CURVE STRIP VI SCH ×4 (06:32→22:00)
[2022-06-24] MEDS: HYDROcodone-ACET 5/325MG TAB PO PRN (06:32)
[2022-06-24] MEDS: FERROUS SULFATE 325mg EC TAB PO SCH ×2 (06:32→17:42)
[2022-06-24] MEDS: InsuLIN REG 1unit/0.01ml Soln (100units/ml) SC SCH ×4 (06:33→22:00)
[2022-06-24 09:00] VITALS: BP 127/65
[2022-06-24] MEDS: cefTRIAXone 1GM/50ML D5W 50 ML IV SCH (09:22)
[2022-06-24 12:30] VITALS: BP 143/70
[2022-06-24] MEDS: ASPirin-EC 81 mg tab PO SCH (13:24)
[2022-06-24] MEDS: GABAPENTIN 300 MG CAP PO SCH ×2 (13:24→22:31)
[2022-06-24] MEDS: SPIRONOLACTONE 25 MG TAB PO SCH (13:24)
[2022-06-24] MEDS: CARVEDILOL 12.5 MG TAB PO SCH ×2 (13:24→22:31)
[2022-06-24] MEDS: ENOXAPARIN SOD 40 MG/0.4 ML SYRINGE SC SCH (13:24)
[2022-06-24] MEDS: PANTOPRAZOLE 40 MG/10 ML VIAL INJ IV SCH (13:25)
[2022-06-24] MEDS: LOSARTAN POTASSIUM 50 MG TAB PO SCH (13:25)
[2022-06-24 16:37] VITALS: BP 117/65
[2022-06-24 22:00] VITALS: BP 119/71
[2022-06-24] MEDS: INSULIN LANTUS (GLARGINE) 1 /0.01ml (100units/ml) SC SCH (22:00)
[2022-06-25] MEDS: ALBUTEROL SULF 2.5 MG/0.5ML(0.5%) NEB SOLN NEB SCH ×3 (00:18→11:41)
[2022-06-25] MEDS: IPRATROPIUM BROM 0.5 MG/2.5ML INH SOL NEB SCH ×3 (00:18→11:41)
[2022-06-25 03:33] VITALS: BP 119/71
[2022-06-25 05:00] VITALS: BP 137/78
[2022-06-25] MEDS: ACCU-CHEK COMFORT CURVE STRIP VI SCH ×2 (06:10→12:19)
[2022-06-25] MEDS: FERROUS SULFATE 325mg EC TAB PO SCH (06:20)
[2022-06-25] MEDS: FUROSEMIDE 40 MG/4 ML VIAL IV SCH (06:20)
[2022-06-25] MEDS: InsuLIN REG 1unit/0.01ml Soln (100units/ml) SC SCH ×2 (06:20→12:19)
[2022-06-25] MEDS: CLINDAMYCIN 600MG IV 50 ML IV SCH ×2 (06:20→14:00)
[2022-06-25] MEDS ORDERED: ADENOSINE 111 MG in GIVE UN-DILUTED 0 ML IV ONE (08:00)
[2022-06-25 08:41] VITALS: BP 137/81
[2022-06-25] MEDS: cefTRIAXone 1GM/50ML D5W 50 ML IV SCH (09:16)
[2022-06-25] MEDS: ASPirin-EC 81 mg tab PO SCH (09:51)
[2022-06-25] MEDS: GABAPENTIN 300 MG CAP PO SCH (09:51)
[2022-06-25] MEDS: SPIRONOLACTONE 25 MG TAB PO SCH (09:51)
[2022-06-25] MEDS: PANTOPRAZOLE 40 MG/10 ML VIAL INJ IV SCH (09:52)
[2022-06-25] MEDS: LOSARTAN POTASSIUM 50 MG TAB PO SCH (09:52)
[2022-06-25] MEDS: ENOXAPARIN SOD 40 MG/0.4 ML SYRINGE SC SCH (09:52)
[2022-06-25] MEDS: CARVEDILOL 12.5 MG TAB PO SCH (09:52)
[2022-06-25 12:56] VITALS: BP 119/50
[2022-06-25] MEDS ORDERED: AMOX500T86 PO (14:38)
[2022-06-25 16:01] VITALS: BP 110/61
== END 2022-06-25 17:24 | disposition home or self-care (01) | DRG 139 ==
LOC: ER 15:42 → TELE 06-22 04:51 → TELE-WESTW 06-22 21:45
PROVIDERS: ADMIT Registered Nurse; ATTEND Internal Medicine Pulmonary Disease
DX: J18.9 Pneumonia, unspecified organism (principal); J96.21 Acute and chronic respiratory failure with hypoxia; I50.33 Acute on chronic diastolic (congestive) heart failure; I13.0 Hypertensive heart and chronic kidney disease with heart failure and stage 1 through stage 4 chronic kidney disease, or unspecified chronic kidney disease; L03.311 Cellulitis of abdominal wall; H10.30 Unspecified acute conjunctivitis, unspecified eye; Z20.822 Contact with and (suspected) exposure to COVID-19; E78.5 Hyperlipidemia, unspecified; E66.01 Morbid (severe) obesity due to excess calories; E55.9 Vitamin D deficiency, unspecified; N18.9 Chronic kidney disease, unspecified; E11.22 Type 2 diabetes mellitus with diabetic chronic kidney disease; E11.65 Type 2 diabetes mellitus with hyperglycemia; H10.9 Unspecified conjunctivitis; J44.0 Chronic obstructive pulmonary disease with (acute) lower respiratory infection; K76.0 Fatty (change of) liver, not elsewhere classified; Z68.42 Body mass index [BMI] 45.0-49.9, adult; Z71.3 Dietary counseling and surveillance; Z90.49 Acquired absence of other specified parts of digestive tract; Z68.43 Body mass index [BMI] 50.0-59.9, adult; I25.2 Old myocardial infarction; Z79.899 Other long term (current) drug therapy; Z82.49 Family history of ischemic heart disease and other diseases of the circulatory system; Z86.73 Personal history of transient ischemic attack (TIA), and cerebral infarction without residual deficits
CPT/HCPCS: 36415; 70450; 71045; 71250; 74176; 80048; 80053; 81001; 82962; 83036; 83605; 83690; 83880; 84484; 85025; 85379; 85610; 85730; 87040; 87426; 93005; 93306; 94640; 96365; 96372; 96375; C9113; G0378; J0153; J0696; J1815; J3490; Q9956

== ENCOUNTER 2022-07-22 00:59 | Emergency (ER) | payer MEDICAID ==
[~2022-07-22] VITALS: Ht 162.6 cm; Wt 128.2 kg
[~2022-07-22 00:59] MED LIST changes: +AMOX500T86 PO; -GLIP10TA16 PO; +GLIP10TA21 PO; -LOSA-69 PO; +LOSA50TA46 PO
[2022-07-22 01:37] LABS: Basophils # (auto) 0.1 10 ^3/uL (0-0.2); Eosinophils # (auto) 0 10 ^3/uL (0-0.8); Eosinophils % (auto) 0.1 % (0.0-7.0); Hemoglobin 11.2 g/dL (12.2-16.2); Lymphocytes % (auto) 12.4 % (10.0-50.0); Monocytes # (auto) 0.9 10 ^3/uL (0-1.3); Nucleated Red Blood Cells % 0.1 %
[2022-07-22 01:39] LABS: Basophils % (auto) 0.7 % (0.0-2.0); Hematocrit 35.1 % (36.0-46.0); Lymphocytes # (auto) 1.3 10 ^3/uL (0.4-5.4); Mean Corpuscular Hgb Conc. 31.9 g/dL (32.0-36.0); Mean Corpuscular Volume 78.3 fL (80.0-100.0); Monocytes % (auto) 8.7 % (0.0-12.0); Neutrophils # (auto) 7.9 10 ^3/uL (1.6-8.6); Neutrophils % (auto) 78.1 % (37.0-80.0); Red Blood Cells 4.48 10^6/uL (4.0-5.20); Red Cell Distribution Width 16.1 % (11.8-14.3); White Blood Cell 10.1 10^3/uL (4.4-10.8)
[2022-07-22 01:44] LABS: Albumin 3.3 g/dL (3.4-5.0); Calcium 8.4 mg/dL (8.5-10.1); Potassium 3.4 mmol/L (3.5-5.1)
[2022-07-22 01:46] LABS: BUN/Creatinine Ratio 17.1 (10.0-20.0)
[2022-07-22 01:49] LABS: Bilirubin, Total 0.2 mg/dL (0.2-1.0); Total Protein 7.5 g/dL (6.4-8.2)
[2022-07-22 02:00] LABS: Urine Bacteria FEW /hpf (None Seen); Urine Blood Negative /uL (Negative); Urine Specific Gravity 1.009 (1.001-1.035); Urine WBC 1 /hpf (0 - 5)
[2022-07-22] MEDS ORDERED: FUROSEMIDE 40 MG/4 ML VIAL IV ONE ×2 (02:00→05:30)
[2022-07-22] MEDS ORDERED: FAMOTIDINE (10MG/ML) 2ML VL IV ONE ×2 (02:00→05:30)
[2022-07-22] MEDS ORDERED: IPRATROPIUM BROM 0.5 MG/2.5ML INH SOL NEB ONE (04:15)
[2022-07-22] MEDS ORDERED: ALBUTEROL SULF 2.5 MG/0.5ML(0.5%) NEB SOLN NEB ONE (04:15)
[2022-07-22] MEDS ORDERED: FAMOTIDINE 20 MG TAB PO ONE (05:00)
[2022-07-22] MEDS ORDERED: FUROSEMIDE 20 MG TAB PO ONE (05:00)
[2022-07-22] MEDS ORDERED: IOHEXOL 350 MG/ML 100ML IJ ONE (05:10)
[2022-07-22 06:36] VITALS: BP 149/100
[2022-07-22] MEDS ORDERED: ALBUAER3 IN (06:46)
== END 2022-07-22 07:15 | disposition home or self-care (01) ==
LOC: ER 01:02
DX: E11.22 Type 2 diabetes mellitus with diabetic chronic kidney disease (principal); I13.0 Hypertensive heart and chronic kidney disease with heart failure and stage 1 through stage 4 chronic kidney disease, or unspecified chronic kidney disease; N18.9 Chronic kidney disease, unspecified; I50.9 Heart failure, unspecified; E78.5 Hyperlipidemia, unspecified; Z86.73 Personal history of transient ischemic attack (TIA), and cerebral infarction without residual deficits; Z90.49 Acquired absence of other specified parts of digestive tract
CPT/HCPCS: 36415; 71045; 71275; 74176; 80053; 81001; 83690; 83880; 84484; 85025; 93005; 94640; 96374; 96375; 99285; J1940; J3490; J7644; Q9967

== ENCOUNTER 2022-07-28 15:50 | Inpatient (IN) | payer MEDICAID ==
[~2022-07-28] VITALS: Ht 167.6 cm; Wt 127.0 kg
[2022-07-28 16:23] LABS: Basophils # (auto) 0.1 10 ^3/uL (0-0.2); Eosinophils # (auto) 0 10 ^3/uL (0-0.8); Eosinophils % (auto) 0.2 % (0.0-7.0); Hemoglobin 9.7 g/dL (12.2-16.2); Monocytes # (auto) 0.7 10 ^3/uL (0-1.3); Neutrophils # (auto) 6.7 10 ^3/uL (1.6-8.6)
[2022-07-28 16:24] LABS: Basophils % (auto) 0.7 % (0.0-2.0); Lymphocytes # (auto) 1.3 10 ^3/uL (0.4-5.4); Lymphocytes % (auto) 14.8 % (10.0-50.0); Mean Corpuscular Hemoglobin 23.9 pg (28.0-32.0); Mean Corpuscular Hgb Conc. 31.2 g/dL (32.0-36.0); Mean Corpuscular Volume 76.5 fL (80.0-100.0); Monocytes % (auto) 7.5 % (0.0-12.0); Neutrophils % (auto) 76.8 % (37.0-80.0); Red Blood Cells 4.05 10^6/uL (4.0-5.20); Red Cell Distribution Width 16.8 % (11.8-14.3); White Blood Cell 8.8 10^3/uL (4.4-10.8)
[2022-07-28 16:41] LABS: INR 0.91 (0.9-1.15); Partial Thromboplastin Time 24.8 sec (24.6-33.4)
[2022-07-28 16:51] LABS: Albumin 3.2 g/dL (3.4-5.0); Calcium 8.2 mg/dL (8.5-10.1); Magnesium 2.1 mg/dL (1.6-2.6); Potassium 4.1 mmol/L (3.5-5.1)
[2022-07-28 16:55] LABS: BUN/Creatinine Ratio 13.4 (10.0-20.0); Bilirubin, Total 0.3 mg/dL (0.2-1.0)
[2022-07-28] MEDS ORDERED: FUROSEMIDE 100 MG/10ML VIAL IV ONE (19:00)
[2022-07-28 19:26] LABS: Urine Bacteria NONE SEEN /hpf (None Seen); Urine Blood Negative /uL (Negative); Urine Specific Gravity 1.028 (1.001-1.035); Urine WBC 2 /hpf (0 - 5)
[2022-07-28] MEDS ORDERED: ONDANSETRON HCL 4 MG/2 ML VIAL IV PRN (20:30)
[2022-07-28] MEDS ORDERED: NITROGLYCERIN 0.4 MG SL TAB SL PRN (20:30)
[2022-07-28] MEDS ORDERED: MORPHINE SULFATE INJ 2 MG/ml SYRG IV PRN (20:30)
[2022-07-28] MEDS ORDERED: DEXTROSE (50%) 50ML SYRG IV PRN (20:30)
[2022-07-28] MEDS ORDERED: ACETAMINOPHEN 325 MG TAB PO PRN (20:30)
[2022-07-28] MEDS ORDERED: METOPROLOL TARTRATE 25 MG TAB PO SCH (22:00)
[2022-07-28] MEDS: ATORVASTATIN 20 MG TAB PO SCH (22:35)
[2022-07-28] MEDS: CARVEDILOL 12.5 MG TAB PO SCH (22:36)
[2022-07-28] MEDS: HYDROcodone-ACET 5/325MG TAB PO PRN (22:36)
[2022-07-29] MEDS: ACCU-CHEK COMFORT CURVE STRIP VI SCH ×4 (01:22→18:19)
[2022-07-29] MEDS: InsuLIN REG 1unit/0.01ml Soln (100units/ml) SC SCH ×4 (01:25→18:20)
[2022-07-29 05:12] LABS: Basophils # (auto) 0.1 10 ^3/uL (0-0.2); Eosinophils # (auto) 0 10 ^3/uL (0-0.8); Lymphocytes # (auto) 1.3 10 ^3/uL (0.4-5.4); Mean Corpuscular Hemoglobin 24.3 pg (28.0-32.0); Monocytes # (auto) 0.8 10 ^3/uL (0-1.3); Monocytes % (auto) 8.7 % (0.0-12.0); Nucleated Red Blood Cells % 0.1 %
[2022-07-29 05:15] LABS: Eosinophils % (auto) 0.2 % (0.0-7.0); Hematocrit 31.9 % (36.0-46.0); Hemoglobin 9.9 g/dL (12.2-16.2); Lymphocytes % (auto) 14.5 % (10.0-50.0); Mean Corpuscular Hgb Conc. 30.9 g/dL (32.0-36.0); Mean Corpuscular Volume 78.6 fL (80.0-100.0); Neutrophils # (auto) 6.6 10 ^3/uL (1.6-8.6); Neutrophils % (auto) 75.6 % (37.0-80.0); Red Blood Cells 4.06 10^6/uL (4.0-5.20); White Blood Cell 8.7 10^3/uL (4.4-10.8)
[2022-07-29 05:16] LABS: BUN/Creatinine Ratio 21.4 (10.0-20.0); Calcium 8.6 mg/dL (8.5-10.1); Potassium 3.7 mmol/L (3.5-5.1)
[2022-07-29] MEDS: FUROSEMIDE 40 MG/4 ML VIAL IV SCH ×2 (06:26→18:18)
[2022-07-29] MEDS ORDERED: ENOXAPARIN SOD 40 MG/0.4 ML SYRINGE SC SCH (10:00)
[2022-07-29] MEDS: ASPirin 81 mg TAB PO SCH (10:26)
[2022-07-29] MEDS: SPIRONOLACTONE 25 MG TAB PO SCH (10:27)
[2022-07-29] MEDS: CARVEDILOL 12.5 MG TAB PO SCH ×2 (10:28→22:00)
[2022-07-29] MEDS: PANTOPRAZOLE 40 MG TAB PO SCH (10:28)
[2022-07-29] MEDS: LOSARTAN POTASSIUM 50 MG TAB PO SCH (10:29)
[2022-07-29] MEDS: HYDROcodone-ACET 5/325MG TAB PO PRN (10:34)
[2022-07-30] VITALS (8 sets, daily range): BP systolic 90–110; BP diastolic 51–74
[2022-07-30] MEDS: ENOXAPARIN SOD 40 MG/0.4 ML SYRINGE SC SCH ×3 (00:17→21:15)
[2022-07-30] MEDS: ATORVASTATIN 20 MG TAB PO SCH ×2 (00:17→21:14)
[2022-07-30] MEDS: HYDROcodone-ACET 5/325MG TAB PO PRN ×3 (02:21→21:15)
[2022-07-30] MEDS: ACCU-CHEK COMFORT CURVE STRIP VI SCH ×5 (06:06→23:42)
[2022-07-30] MEDS: InsuLIN REG 1unit/0.01ml Soln (100units/ml) SC SCH ×5 (06:18→23:45)
[2022-07-30] MEDS: FUROSEMIDE 40 MG/4 ML VIAL IV SCH ×2 (06:21→18:14)
[2022-07-30] MEDS: PANTOPRAZOLE 40 MG TAB PO SCH (09:54)
[2022-07-30] MEDS: ASPirin 81 mg TAB PO SCH (09:54)
[2022-07-30] MEDS: SPIRONOLACTONE 25 MG TAB PO SCH (09:55)
[2022-07-30] MEDS: LOSARTAN POTASSIUM 50 MG TAB PO SCH ×2 (09:55→10:00)
[2022-07-30] MEDS: CARVEDILOL 12.5 MG TAB PO SCH ×3 (09:56→21:26)
[2022-07-31 05:00] VITALS: BP 128/61
[2022-07-31] MEDS: FUROSEMIDE 40 MG/4 ML VIAL IV SCH ×2 (05:42→17:41)
[2022-07-31] MEDS: ACCU-CHEK COMFORT CURVE STRIP VI SCH ×4 (05:43→23:30)
[2022-07-31] MEDS: InsuLIN REG 1unit/0.01ml Soln (100units/ml) SC SCH ×4 (05:53→23:32)
[2022-07-31 06:11] LABS: Basophils # (auto) 0.1 10 ^3/uL (0-0.2); Basophils % (auto) 0.6 % (0.0-2.0); Eosinophils # (auto) 0 10 ^3/uL (0-0.8); Eosinophils % (auto) 0.1 % (0.0-7.0); Hematocrit 31.7 % (36.0-46.0); Hemoglobin 9.5 g/dL (12.2-16.2); Lymphocytes # (auto) 1.4 10 ^3/uL (0.4-5.4); Lymphocytes % (auto) 16.1 % (10.0-50.0); Mean Corpuscular Hemoglobin 23.7 pg (28.0-32.0); Mean Corpuscular Hgb Conc. 29.9 g/dL (32.0-36.0); Mean Corpuscular Volume 79.4 fL (80.0-100.0); Monocytes # (auto) 0.6 10 ^3/uL (0-1.3); Monocytes % (auto) 7.3 % (0.0-12.0); Neutrophils # (auto) 6.7 10 ^3/uL (1.6-8.6); Neutrophils % (auto) 75.9 % (37.0-80.0); Red Blood Cells 3.99 10^6/uL (4.0-5.20); Red Cell Distribution Width 17.3 % (11.8-14.3); White Blood Cell 8.9 10^3/uL (4.4-10.8)
[2022-07-31 06:25] LABS: Chloride 97 mmol/L (98-107); Potassium 4.7 mmol/L (3.5-5.1); Sodium 133 mmol/L (136-145)
[2022-07-31 06:33] LABS: Alanine Aminotransferase 43 U/L (13-56); Albumin 2.8 g/dL (3.4-5.0); Anion Gap 8 (5-15); Aspartate Aminotransferase 61 U/L (15-37); BUN/Creatinine Ratio 30.1 (10.0-20.0); Blood Urea Nitrogen 28 mg/dL (7-18); Calcium 8.5 mg/dL (8.5-10.1); Carbon Dioxide 28 mmol/L (21-32); GFR African American 81 mL/min; GFR Non-African American 67 mL/min; Glucose 268 mg/dL (74-106)
[2022-07-31 06:35] LABS: Alkaline Phosphatase 95 U/L (45-117); Bilirubin, Total 0.3 mg/dL (0.2-1.0); Total Protein 6.9 g/dL (6.4-8.2)
[2022-07-31 09:00] VITALS: BP 116/50
[2022-07-31] MEDS: PANTOPRAZOLE 40 MG TAB PO SCH (09:51)
[2022-07-31] MEDS: LOSARTAN POTASSIUM 50 MG TAB PO SCH (09:51)
[2022-07-31] MEDS: SPIRONOLACTONE 25 MG TAB PO SCH (09:51)
[2022-07-31] MEDS: ENOXAPARIN SOD 40 MG/0.4 ML SYRINGE SC SCH ×2 (09:51→21:57)
[2022-07-31] MEDS: ASPirin 81 mg TAB PO SCH (09:51)
[2022-07-31] MEDS: CARVEDILOL 12.5 MG TAB PO SCH ×2 (09:52→21:57)
[2022-07-31] MEDS ORDERED: IPRATROPIUM BROM 0.5 MG/2.5ML INH SOL NEB PRN (10:00)
[2022-07-31] MEDS: ALBUTEROL SULF 2.5 MG/0.5ML(0.5%) NEB SOLN NEB SCH ×4 (10:00→22:08)
[2022-07-31] MEDS ORDERED: ALBUTEROL SULF 2.5 MG/0.5ML(0.5%) NEB SOLN NEB PRN (10:00)
[2022-07-31] MEDS: IPRATROPIUM BROM 0.5 MG/2.5ML INH SOL NEB SCH ×4 (10:00→22:08)
[2022-07-31] MEDS: methylPREDNISolone SOD SUCC 40 MG/ML VL IV SCH ×2 (11:33→21:58)
[2022-07-31] MEDS: HYDROcodone-ACET 5/325MG TAB PO PRN (11:36)
[2022-07-31 13:00] VITALS: BP 90/60
[2022-07-31 16:01] VITALS: BP 90/60
[2022-07-31 17:00] VITALS: BP 96/47
[2022-07-31] MEDS: ATORVASTATIN 20 MG TAB PO SCH (21:57)
[2022-07-31 22:00] VITALS: BP 115/55
[2022-08-01] MEDS: ALBUTEROL SULF 2.5 MG/0.5ML(0.5%) NEB SOLN NEB SCH ×6 (02:21→22:14)
[2022-08-01] MEDS: IPRATROPIUM BROM 0.5 MG/2.5ML INH SOL NEB SCH ×6 (02:21→22:15)
[2022-08-01] MEDS: FUROSEMIDE 40 MG/4 ML VIAL IV SCH ×2 (06:03→18:01)
[2022-08-01] MEDS: ACCU-CHEK COMFORT CURVE STRIP VI SCH ×4 (06:04→23:06)
[2022-08-01] MEDS: InsuLIN REG 1unit/0.01ml Soln (100units/ml) SC SCH ×4 (06:23→23:58)
[2022-08-01 06:48] LABS: Basophils # (auto) 0 10 ^3/uL (0-0.2); Eosinophils # (auto) 0 10 ^3/uL (0-0.8); Lymphocytes # (auto) 0.6 10 ^3/uL (0.4-5.4); Mean Corpuscular Hemoglobin 24.3 pg (28.0-32.0); Monocytes # (auto) 0.1 10 ^3/uL (0-1.3); Nucleated Red Blood Cells % 0.1 %
[2022-08-01 06:51] LABS: Basophils % (auto) 0.4 % (0.0-2.0); Hematocrit 29.9 % (36.0-46.0); Hemoglobin 9.4 g/dL (12.2-16.2); Lymphocytes % (auto) 7.2 % (10.0-50.0); Mean Corpuscular Hgb Conc. 31.6 g/dL (32.0-36.0); Mean Corpuscular Volume 76.8 fL (80.0-100.0); Monocytes % (auto) 1.7 % (0.0-12.0); Neutrophils # (auto) 7.2 10 ^3/uL (1.6-8.6); Neutrophils % (auto) 90.7 % (37.0-80.0); Red Blood Cells 3.89 10^6/uL (4.0-5.20); White Blood Cell 7.9 10^3/uL (4.4-10.8)
[2022-08-01 07:28] LABS: Potassium 4.5 mmol/L (3.5-5.1)
[2022-08-01 07:48] LABS: BUN/Creatinine Ratio 33.8 (10.0-20.0); Calcium 8.5 mg/dL (8.5-10.1)
[2022-08-01 09:00] VITALS: BP 134/51
[2022-08-01] MEDS: PANTOPRAZOLE 40 MG TAB PO SCH (09:43)
[2022-08-01] MEDS: ASPirin 81 mg TAB PO SCH (09:43)
[2022-08-01] MEDS: SPIRONOLACTONE 25 MG TAB PO SCH (09:43)
[2022-08-01] MEDS: methylPREDNISolone SOD SUCC 40 MG/ML VL IV SCH ×2 (09:43→22:00)
[2022-08-01] MEDS: ENOXAPARIN SOD 40 MG/0.4 ML SYRINGE SC SCH ×2 (09:43→22:00)
[2022-08-01] MEDS: LOSARTAN POTASSIUM 50 MG TAB PO SCH (09:44)
[2022-08-01] MEDS: CARVEDILOL 12.5 MG TAB PO SCH ×2 (09:44→22:00)
[2022-08-01 13:00] VITALS: BP 115/72
[2022-08-01 17:00] VITALS: BP 141/78
[2022-08-01] MEDS: ATORVASTATIN 20 MG TAB PO SCH (22:00)
[2022-08-01] MEDS: HYDROcodone-ACET 5/325MG TAB PO PRN (23:59)
[2022-08-02] MEDS: IPRATROPIUM BROM 0.5 MG/2.5ML INH SOL NEB SCH ×6 (01:55→22:00)
[2022-08-02] MEDS: ALBUTEROL SULF 2.5 MG/0.5ML(0.5%) NEB SOLN NEB SCH ×6 (01:55→22:00)
[2022-08-02] MEDS: FUROSEMIDE 40 MG/4 ML VIAL IV SCH ×2 (06:14→17:19)
[2022-08-02] MEDS: ACCU-CHEK COMFORT CURVE STRIP VI SCH ×4 (06:14→23:09)
[2022-08-02] MEDS: InsuLIN REG 1unit/0.01ml Soln (100units/ml) SC SCH ×4 (06:21→23:10)
[2022-08-02 09:00] VITALS: BP 129/82
[2022-08-02] MEDS ORDERED: HALOPERIDOL LACTATE 5 MG/ML INJ VIAL IV PRN (09:15)
[2022-08-02] MEDS: SPIRONOLACTONE 25 MG TAB PO SCH (10:17)
[2022-08-02] MEDS: methylPREDNISolone SOD SUCC 40 MG/ML VL IV SCH ×2 (10:17→21:25)
[2022-08-02] MEDS: ASPirin 81 mg TAB PO SCH (10:17)
[2022-08-02] MEDS: CARVEDILOL 12.5 MG TAB PO SCH ×2 (10:18→22:40)
[2022-08-02] MEDS: PANTOPRAZOLE 40 MG TAB PO SCH (10:18)
[2022-08-02] MEDS: LOSARTAN POTASSIUM 50 MG TAB PO SCH (10:19)
[2022-08-02] MEDS: ENOXAPARIN SOD 40 MG/0.4 ML SYRINGE SC SCH ×2 (10:19→21:25)
[2022-08-02] MEDS: HYDROcodone-ACET 5/325MG TAB PO PRN ×3 (12:14→21:22)
[2022-08-02 13:00] VITALS: BP 138/73
[2022-08-02 14:08] LABS: BUN/Creatinine Ratio 24.7 (10.0-20.0); Calcium 8.3 mg/dL (8.5-10.1)
[2022-08-02 17:00] VITALS: BP 123/82
[2022-08-02] MEDS: ATORVASTATIN 20 MG TAB PO SCH (21:23)
[2022-08-02 22:00] VITALS: BP 139/83
[2022-08-03] VITALS (7 sets, daily range): BP systolic 108–157; BP diastolic 52–95
[2022-08-03] MEDS: ALBUTEROL SULF 2.5 MG/0.5ML(0.5%) NEB SOLN NEB SCH ×6 (02:00→22:18)
[2022-08-03] MEDS: IPRATROPIUM BROM 0.5 MG/2.5ML INH SOL NEB SCH ×6 (02:00→22:18)
[2022-08-03] MEDS: ACCU-CHEK COMFORT CURVE STRIP VI SCH ×3 (05:34→18:00)
[2022-08-03] MEDS: InsuLIN REG 1unit/0.01ml Soln (100units/ml) SC SCH ×3 (05:37→17:48)
[2022-08-03] MEDS: FUROSEMIDE 40 MG/4 ML VIAL IV SCH ×2 (05:39→17:57)
[2022-08-03 05:52] LABS: Basophils # (auto) 0 10 ^3/uL (0-0.2); Basophils % (auto) 0.3 % (0.0-2.0); Eosinophils # (auto) 0 10 ^3/uL (0-0.8); Monocytes # (auto) 0.2 10 ^3/uL (0-1.3)
[2022-08-03 05:55] LABS: Hemoglobin 9.5 g/dL (12.2-16.2); Lymphocytes # (auto) 0.6 10 ^3/uL (0.4-5.4); Lymphocytes % (auto) 9.7 % (10.0-50.0); Mean Corpuscular Hemoglobin 23.7 pg (28.0-32.0); Mean Corpuscular Hgb Conc. 30.8 g/dL (32.0-36.0); Monocytes % (auto) 3.6 % (0.0-12.0); Neutrophils # (auto) 5.7 10 ^3/uL (1.6-8.6); Neutrophils % (auto) 86.4 % (37.0-80.0); Nucleated Red Blood Cells % 0.1 %; Red Blood Cells 4.02 10^6/uL (4.0-5.20); Red Cell Distribution Width 17.3 % (11.8-14.3); White Blood Cell 6.6 10^3/uL (4.4-10.8)
[2022-08-03 06:17] LABS: Albumin 3.4 g/dL (3.4-5.0); Calcium 8.6 mg/dL (8.5-10.1); Potassium 4.3 mmol/L (3.5-5.1)
[2022-08-03 06:21] LABS: BUN/Creatinine Ratio 26.1 (10.0-20.0); Bilirubin, Total 0.4 mg/dL (0.2-1.0); Total Protein 7.6 g/dL (6.4-8.2)
[2022-08-03] MEDS: SPIRONOLACTONE 25 MG TAB PO SCH (09:34)
[2022-08-03] MEDS: methylPREDNISolone SOD SUCC 40 MG/ML VL IV SCH ×2 (09:34→21:15)
[2022-08-03] MEDS: HYDROcodone-ACET 5/325MG TAB PO PRN ×4 (09:34→21:49)
[2022-08-03] MEDS: CARVEDILOL 12.5 MG TAB PO SCH ×2 (09:35→21:17)
[2022-08-03] MEDS: PANTOPRAZOLE 40 MG TAB PO SCH (09:36)
[2022-08-03] MEDS: ENOXAPARIN SOD 40 MG/0.4 ML SYRINGE SC SCH ×2 (09:36→21:15)
[2022-08-03] MEDS: LOSARTAN POTASSIUM 50 MG TAB PO SCH (09:36)
[2022-08-03] MEDS: ATORVASTATIN 20 MG TAB PO SCH (21:15)
[2022-08-04] MEDS ORDERED: InsuLIN REG 1unit/0.01ml Soln (100units/ml) SC SCH
[2022-08-04] MEDS: ACCU-CHEK COMFORT CURVE STRIP VI SCH ×5 (00:33→23:01)
[2022-08-04] MEDS: InsuLIN REG 1unit/0.01ml Soln (100units/ml) SC SCH ×5 (00:40→23:07)
[2022-08-04] MEDS: IPRATROPIUM BROM 0.5 MG/2.5ML INH SOL NEB SCH ×7 (02:00→22:06)
[2022-08-04] MEDS: ALBUTEROL SULF 2.5 MG/0.5ML(0.5%) NEB SOLN NEB SCH ×7 (02:00→22:06)
[2022-08-04 05:23] VITALS: BP 108/52
[2022-08-04] MEDS: FUROSEMIDE 40 MG/4 ML VIAL IV SCH ×2 (05:23→17:30)
[2022-08-04] MEDS: HYDROcodone-ACET 5/325MG TAB PO PRN ×3 (05:27→21:48)
[2022-08-04 07:15] LABS: Basophils # (auto) 0 10 ^3/uL (0-0.2); Basophils % (auto) 0.3 % (0.0-2.0); Eosinophils # (auto) 0 10 ^3/uL (0-0.8); Hematocrit 30.6 % (36.0-46.0); Hemoglobin 9.5 g/dL (12.2-16.2); Lymphocytes # (auto) 0.6 10 ^3/uL (0.4-5.4); Mean Corpuscular Hemoglobin 23.6 pg (28.0-32.0); Mean Corpuscular Volume 76.1 fL (80.0-100.0); Monocytes # (auto) 0.3 10 ^3/uL (0-1.3); Neutrophils # (auto) 7.7 10 ^3/uL (1.6-8.6); Neutrophils % (auto) 89.7 % (37.0-80.0); Red Blood Cells 4.02 10^6/uL (4.0-5.20); White Blood Cell 8.6 10^3/uL (4.4-10.8)
[2022-08-04 07:18] LABS: BUN/Creatinine Ratio 29.4 (10.0-20.0); Calcium 8.7 mg/dL (8.5-10.1); Potassium 4.3 mmol/L (3.5-5.1)
[2022-08-04 08:00] VITALS: BP 138/56
[2022-08-04 09:00] VITALS: BP 138/56
[2022-08-04] MEDS: methylPREDNISolone SOD SUCC 40 MG/ML VL IV SCH ×2 (10:14→21:51)
[2022-08-04] MEDS: SPIRONOLACTONE 25 MG TAB PO SCH (10:14)
[2022-08-04] MEDS: LOSARTAN POTASSIUM 50 MG TAB PO SCH (10:14)
[2022-08-04] MEDS: ENOXAPARIN SOD 40 MG/0.4 ML SYRINGE SC SCH ×2 (10:14→21:56)
[2022-08-04] MEDS: PANTOPRAZOLE 40 MG TAB PO SCH (10:15)
[2022-08-04] MEDS: CARVEDILOL 12.5 MG TAB PO SCH ×2 (10:15→21:48)
[2022-08-04 13:00] VITALS: BP 117/76
[2022-08-04 17:00] VITALS: BP 129/65
[2022-08-04] MEDS: ATORVASTATIN 20 MG TAB PO SCH (21:48)
[2022-08-04 22:00] VITALS: BP 126/68
[2022-08-05] MEDS: IPRATROPIUM BROM 0.5 MG/2.5ML INH SOL NEB SCH ×6 (02:00→22:00)
[2022-08-05] MEDS: ALBUTEROL SULF 2.5 MG/0.5ML(0.5%) NEB SOLN NEB SCH ×6 (02:00→22:00)
[2022-08-05 05:00] VITALS: BP 137/88
[2022-08-05] MEDS: ACCU-CHEK COMFORT CURVE STRIP VI SCH ×3 (05:16→18:52)
[2022-08-05] MEDS: FUROSEMIDE 40 MG/4 ML VIAL IV SCH ×2 (05:19→18:52)
[2022-08-05] MEDS: InsuLIN REG 1unit/0.01ml Soln (100units/ml) SC SCH ×3 (05:25→18:55)
[2022-08-05] MEDS: HYDROcodone-ACET 5/325MG TAB PO PRN ×3 (05:49→23:19)
[2022-08-05 06:00] LABS: Basophils # (auto) 0 10 ^3/uL (0-0.2); Basophils % (auto) 0.1 % (0.0-2.0); Eosinophils # (auto) 0 10 ^3/uL (0-0.8); Hematocrit 30.4 % (36.0-46.0); Hemoglobin 9.3 g/dL (12.2-16.2); Lymphocytes # (auto) 0.6 10 ^3/uL (0.4-5.4); Lymphocytes % (auto) 7.2 % (10.0-50.0); Mean Corpuscular Hemoglobin 23.3 pg (28.0-32.0); Mean Corpuscular Hgb Conc. 30.5 g/dL (32.0-36.0); Mean Corpuscular Volume 76.6 fL (80.0-100.0); Monocytes # (auto) 0.4 10 ^3/uL (0-1.3); Monocytes % (auto) 4.2 % (0.0-12.0); Neutrophils # (auto) 7.9 10 ^3/uL (1.6-8.6); Neutrophils % (auto) 88.5 % (37.0-80.0); Red Blood Cells 3.97 10^6/uL (4.0-5.20); Red Cell Distribution Width 17.7 % (11.8-14.3); White Blood Cell 8.9 10^3/uL (4.4-10.8)
[2022-08-05 06:06] LABS: Potassium 4.8 mmol/L (3.5-5.1)
[2022-08-05 06:12] LABS: BUN/Creatinine Ratio 34.3 (10.0-20.0); Calcium 8.8 mg/dL (8.5-10.1)
[2022-08-05 09:00] VITALS: BP 123/69
[2022-08-05] MEDS: methylPREDNISolone SOD SUCC 40 MG/ML VL IV SCH ×2 (10:34→22:42)
[2022-08-05] MEDS: ENOXAPARIN SOD 40 MG/0.4 ML SYRINGE SC SCH ×2 (10:35→22:43)
[2022-08-05] MEDS: PANTOPRAZOLE 40 MG TAB PO SCH (10:35)
[2022-08-05] MEDS: LOSARTAN POTASSIUM 50 MG TAB PO SCH (10:37)
[2022-08-05] MEDS: CARVEDILOL 12.5 MG TAB PO SCH ×2 (10:37→22:42)
[2022-08-05] MEDS: SPIRONOLACTONE 25 MG TAB PO SCH (10:38)
[2022-08-05 13:00] VITALS: BP 101/62
[2022-08-05 16:43] VITALS: BP_SYST 100; BP_SYST 137; BP_DIAS 59; BP_DIAS 71
[2022-08-05 22:00] VITALS: BP 147/78
[2022-08-05] MEDS: ATORVASTATIN 20 MG TAB PO SCH (22:42)
[2022-08-06] MEDS: InsuLIN REG 1unit/0.01ml Soln (100units/ml) SC SCH ×3 (01:11→12:36)
[2022-08-06] MEDS: ALBUTEROL SULF 2.5 MG/0.5ML(0.5%) NEB SOLN NEB SCH ×3 (02:21→10:44)
[2022-08-06] MEDS: IPRATROPIUM BROM 0.5 MG/2.5ML INH SOL NEB SCH ×3 (02:21→10:44)
[2022-08-06] MEDS: HYDROcodone-ACET 5/325MG TAB PO PRN (04:42)
[2022-08-06 05:00] VITALS: BP 112/70
[2022-08-06] MEDS: FUROSEMIDE 40 MG/4 ML VIAL IV SCH (06:00)
[2022-08-06] MEDS: ACCU-CHEK COMFORT CURVE STRIP VI SCH ×3 (06:11→12:35)
[2022-08-06 06:39] LABS: Basophils # (auto) 0 10 ^3/uL (0-0.2); Basophils % (auto) 0.1 % (0.0-2.0); Eosinophils # (auto) 0 10 ^3/uL (0-0.8); Hematocrit 32.2 % (36.0-46.0); Hemoglobin 9.9 g/dL (12.2-16.2); Lymphocytes # (auto) 0.7 10 ^3/uL (0.4-5.4); Mean Corpuscular Hemoglobin 23.2 pg (28.0-32.0); Mean Corpuscular Hgb Conc. 30.7 g/dL (32.0-36.0); Red Cell Distribution Width 17.4 % (11.8-14.3)
[2022-08-06 06:42] LABS: Mean Corpuscular Volume 75.5 fL (80.0-100.0); Monocytes # (auto) 0.5 10 ^3/uL (0-1.3); Monocytes % (auto) 4.2 % (0.0-12.0); Neutrophils # (auto) 11.1 10 ^3/uL (1.6-8.6); Neutrophils % (auto) 89.7 % (37.0-80.0); Red Blood Cells 4.27 10^6/uL (4.0-5.20); White Blood Cell 12.3 10^3/uL (4.4-10.8)
[2022-08-06 06:49] LABS: BUN/Creatinine Ratio 35.3 (10.0-20.0); Calcium 8.9 mg/dL (8.5-10.1); Potassium 4.8 mmol/L (3.5-5.1)
[2022-08-06] MEDS: ENOXAPARIN SOD 40 MG/0.4 ML SYRINGE SC SCH (08:36)
[2022-08-06] MEDS: methylPREDNISolone SOD SUCC 40 MG/ML VL IV SCH (08:36)
[2022-08-06] MEDS: SPIRONOLACTONE 25 MG TAB PO SCH (08:37)
[2022-08-06] MEDS: PANTOPRAZOLE 40 MG TAB PO SCH (08:38)
[2022-08-06] MEDS: LOSARTAN POTASSIUM 50 MG TAB PO SCH (08:38)
[2022-08-06] MEDS: CARVEDILOL 12.5 MG TAB PO SCH (08:38)
[2022-08-06 09:00] VITALS: BP 126/58
[2022-08-06] MEDS ORDERED: ACET-1079 PO ×3 (10:04→10:05)
[2022-08-06] MEDS ORDERED: PRED20TA2 PO (10:04)
[2022-08-06 11:08] VITALS: BP 107/58
== END 2022-08-06 12:52 | disposition home or self-care (01) | DRG 194 ==
LOC: ER 15:50 → TELE 20:40 → TELE-EAST 07-29 21:40
PROVIDERS: ADMIT Nurse Practitioner; ATTEND Internal Medicine Pulmonary Disease
DX: I13.0 Hypertensive heart and chronic kidney disease with heart failure and stage 1 through stage 4 chronic kidney disease, or unspecified chronic kidney disease (principal); J96.21 Acute and chronic respiratory failure with hypoxia; G93.41 Metabolic encephalopathy; N17.9 Acute kidney failure, unspecified; J44.1 Chronic obstructive pulmonary disease with (acute) exacerbation; E11.22 Type 2 diabetes mellitus with diabetic chronic kidney disease; D50.9 Iron deficiency anemia, unspecified; E11.65 Type 2 diabetes mellitus with hyperglycemia; N18.9 Chronic kidney disease, unspecified; E66.01 Morbid (severe) obesity due to excess calories; E78.5 Hyperlipidemia, unspecified; I50.33 Acute on chronic diastolic (congestive) heart failure; K76.0 Fatty (change of) liver, not elsewhere classified; R31.0 Gross hematuria; Z79.82 Long term (current) use of aspirin; Z79.899 Other long term (current) drug therapy; Z80.1 Family history of malignant neoplasm of trachea, bronchus and lung; Z68.42 Body mass index [BMI] 45.0-49.9, adult; Z82.3 Family history of stroke; Z82.49 Family history of ischemic heart disease and other diseases of the circulatory system; Z82.5 Family history of asthma and other chronic lower respiratory diseases; Z83.3 Family history of diabetes mellitus; Z85.118 Personal history of other malignant neoplasm of bronchus and lung; Z86.73 Personal history of transient ischemic attack (TIA), and cerebral infarction without residual deficits; Z90.49 Acquired absence of other specified parts of digestive tract; Z79.84 Long term (current) use of oral hypoglycemic drugs
CPT/HCPCS: 36415; 70450; 71045; 71046; 74178; 76700; 76856; 80048; 80053; 81001; 82962; 83735; 83880; 84484; 85025; 85379; 85610; 85730; 93005; 94640; 96372; 96374; G0378; J1815

== ENCOUNTER 2022-08-17 14:31 | Inpatient (IN) | payer MEDICAID ==
[~2022-08-17] VITALS: Ht 162.6 cm; Wt 128.4 kg
[~2022-08-17 14:31] MED LIST changes: +ACET-1079 PO
[2022-08-17 15:08] LABS: Basophils # (auto) 0.1 10 ^3/uL (0-0.2); Eosinophils # (auto) 0 10 ^3/uL (0-0.8); Eosinophils % (auto) 0.4 % (0.0-7.0); Hematocrit 32.6 % (36.0-46.0); Lymphocytes # (auto) 1.3 10 ^3/uL (0.4-5.4); Mean Corpuscular Hemoglobin 22.4 pg (28.0-32.0); Monocytes # (auto) 0.8 10 ^3/uL (0-1.3); White Blood Cell 7.7 10^3/uL (4.4-10.8)
[2022-08-17 15:10] LABS: Basophils % (auto) 0.7 % (0.0-2.0); Hemoglobin 9.8 g/dL (12.2-16.2); Lymphocytes % (auto) 16.4 % (10.0-50.0); Mean Corpuscular Hgb Conc. 30.1 g/dL (32.0-36.0); Mean Corpuscular Volume 74.3 fL (80.0-100.0); Monocytes % (auto) 10.3 % (0.0-12.0); Neutrophils # (auto) 5.5 10 ^3/uL (1.6-8.6); Neutrophils % (auto) 72.2 % (37.0-80.0); Red Blood Cells 4.39 10^6/uL (4.0-5.20); Red Cell Distribution Width 18.7 % (11.8-14.3)
[2022-08-17 15:24] LABS: INR 0.96 (0.9-1.15); Partial Thromboplastin Time 23.4 SEC (24.5-34.5)
[2022-08-17 15:28] LABS: Albumin 3.4 g/dL (3.4-5.0); Potassium 4.1 mmol/L (3.5-5.1)
[2022-08-17 15:30] LABS: BUN/Creatinine Ratio 10.3 (10.0-20.0); Bilirubin, Total 0.3 mg/dL (0.2-1.0); Total Protein 6.7 g/dL (6.4-8.2)
[2022-08-17] MEDS ORDERED: FUROSEMIDE 100 MG/10ML VIAL IV ONE (15:45)
[2022-08-17] MEDS ORDERED: ALBUTEROL SULF 2.5 MG/0.5ML(0.5%) NEB SOLN NEB ONE (15:45)
[2022-08-17] MEDS ORDERED: IPRATROPIUM BROM 0.5 MG/2.5ML INH SOL NEB ONE (15:45)
[2022-08-17] MEDS ORDERED: predniSONE 20 MG TAB PO ONE (15:45)
[2022-08-17 16:02] LABS: Urine Bacteria NONE SEEN /hpf (None Seen); Urine Blood Negative /uL (Negative); Urine Specific Gravity 1.034 (1.001-1.035); Urine WBC <1 /hpf (0 - 5)
[2022-08-17] MEDS ORDERED: ALBUTEROL SULF 2.5 MG/0.5ML(0.5%) NEB SOLN NEB PRN (16:45)
[2022-08-17] MEDS ORDERED: DEXTROSE (50%) 50ML SYRG IV PRN (16:45)
[2022-08-17] MEDS ORDERED: ERGOCALCIFEROL 50,000 UNIT(1.25MG) CAP PO SCH (17:15)
[2022-08-17 17:17] VITALS: BP 163/99
[2022-08-17] MEDS: ACCU-CHEK COMFORT CURVE STRIP VI SCH ×2 (17:35→22:06)
[2022-08-17] MEDS: InsuLIN REG 1unit/0.01ml Soln (100units/ml) SC SCH ×2 (17:37→22:06)
[2022-08-17 17:59] LABS: Cholesterol 212 mg/dL (< 200)
[2022-08-17 18:02] LABS: HDL Cholesterol 41 mg/dL (40-59); LDL Cholesterol 132 mg/dL (< 100); Triglycerides 194 mg/dL (< 150)
[2022-08-17] MEDS: ALBUTEROL SULF 2.5 MG/0.5ML(0.5%) NEB SOLN NEB SCH ×2 (18:27→21:59)
[2022-08-17] MEDS: IPRATROPIUM BROM 0.5 MG/2.5ML INH SOL NEB SCH ×2 (18:27→21:59)
[2022-08-17] MEDS: HYDROcodone-ACET 5/325MG TAB PO PRN (20:54)
[2022-08-17] MEDS: ATORVASTATIN 20 MG TAB PO SCH (22:04)
[2022-08-17] MEDS: GABAPENTIN 300 MG CAP PO SCH (22:04)
[2022-08-17] MEDS: CARVEDILOL 12.5 MG TAB PO SCH (22:05)
[2022-08-17] MEDS ORDERED: hydrALAZINE HCL 10 MG TAB PO PRN (22:45)
[2022-08-18 00:43] VITALS: BP 141/95
[2022-08-18] MEDS: HYDROcodone-ACET 5/325MG TAB PO PRN ×4 (00:56→23:17)
[2022-08-18] MEDS: ALBUTEROL SULF 2.5 MG/0.5ML(0.5%) NEB SOLN NEB SCH ×6 (02:10→22:00)
[2022-08-18] MEDS: IPRATROPIUM BROM 0.5 MG/2.5ML INH SOL NEB SCH ×6 (02:10→22:00)
[2022-08-18 04:39] VITALS: BP 127/82
[2022-08-18] MEDS: FERROUS SULFATE 325mg EC TAB PO SCH ×2 (06:16→15:20)
[2022-08-18] MEDS: InsuLIN REG 1unit/0.01ml Soln (100units/ml) SC SCH ×4 (06:17→22:15)
[2022-08-18] MEDS: ACCU-CHEK COMFORT CURVE STRIP VI SCH ×4 (06:18→22:15)
[2022-08-18 07:01] LABS: Basophils # (auto) 0 10 ^3/uL (0-0.2); Basophils % (auto) 0.3 % (0.0-2.0); Eosinophils # (auto) 0 10 ^3/uL (0-0.8); Monocytes # (auto) 0.7 10 ^3/uL (0-1.3); Red Cell Distribution Width 18.4 % (11.8-14.3)
[2022-08-18 07:07] LABS: Hematocrit 30.8 % (36.0-46.0); Hemoglobin 9.3 g/dL (12.2-16.2); Lymphocytes # (auto) 0.9 10 ^3/uL (0.4-5.4); Lymphocytes % (auto) 8.5 % (10.0-50.0); Mean Corpuscular Hemoglobin 22.6 pg (28.0-32.0); Mean Corpuscular Hgb Conc. 30.1 g/dL (32.0-36.0); Mean Corpuscular Volume 75.2 fL (80.0-100.0); Monocytes % (auto) 7.3 % (0.0-12.0); Neutrophils # (auto) 8.5 10 ^3/uL (1.6-8.6); Neutrophils % (auto) 83.9 % (37.0-80.0); Red Blood Cells 4.09 10^6/uL (4.0-5.20); White Blood Cell 10.2 10^3/uL (4.4-10.8)
[2022-08-18 07:11] LABS: Albumin 3.1 g/dL (3.4-5.0); Calcium 8.5 mg/dL (8.5-10.1); Potassium 4.1 mmol/L (3.5-5.1)
[2022-08-18 07:16] LABS: BUN/Creatinine Ratio 17.2 (10.0-20.0); Bilirubin, Total 0.4 mg/dL (0.2-1.0); Total Protein 6.8 g/dL (6.4-8.2)
[2022-08-18 08:00] VITALS: BP 127/89
[2022-08-18] MEDS ORDERED: FUROSEMIDE 20 MG/2 ML VIAL IV SCH (10:00)
[2022-08-18] MEDS: ENOXAPARIN SOD 40 MG/0.4 ML SYRINGE SC SCH ×2 (10:05→22:15)
[2022-08-18] MEDS: ASPirin-EC 81 mg tab PO SCH (10:07)
[2022-08-18] MEDS: CARVEDILOL 12.5 MG TAB PO SCH ×2 (10:08→22:19)
[2022-08-18] MEDS: GABAPENTIN 300 MG CAP PO SCH ×2 (10:08→22:16)
[2022-08-18] MEDS: LOSARTAN POTASSIUM 50 MG TAB PO SCH (10:09)
[2022-08-18] MEDS: METOPROLOL SUCCINATE XL 50 MG TAB PO SCH (10:09)
[2022-08-18 12:00] VITALS: BP 114/70
[2022-08-18] MEDS: INSULIN LANTUS (GLARGINE) 1 /0.01ml (100units/ml) SC SCH ×2 (13:36→22:15)
[2022-08-18 16:00] VITALS: BP 109/60
[2022-08-18 22:00] VITALS: BP 118/55
[2022-08-18] MEDS: ATORVASTATIN 20 MG TAB PO SCH (22:17)
[2022-08-19] MEDS: ALBUTEROL SULF 2.5 MG/0.5ML(0.5%) NEB SOLN NEB SCH ×6 (02:00→23:11)
[2022-08-19] MEDS: IPRATROPIUM BROM 0.5 MG/2.5ML INH SOL NEB SCH ×6 (02:00→23:11)
[2022-08-19 05:00] VITALS: BP 90/48
[2022-08-19 09:00] VITALS: BP 179/62
[2022-08-19 10:15] LABS: Hepatitis C Antibody Negative (Negative)
[2022-08-19] MEDS: GABAPENTIN 300 MG CAP PO SCH ×2 (10:30→21:46)
[2022-08-19] MEDS: ASPirin-EC 81 mg tab PO SCH (10:30)
[2022-08-19] MEDS: LOSARTAN POTASSIUM 50 MG TAB PO SCH (10:31)
[2022-08-19] MEDS: METOPROLOL SUCCINATE XL 50 MG TAB PO SCH (10:32)
[2022-08-19] MEDS: ENOXAPARIN SOD 40 MG/0.4 ML SYRINGE SC SCH ×2 (10:32→21:49)
[2022-08-19] MEDS: CARVEDILOL 12.5 MG TAB PO SCH ×2 (10:32→21:48)
[2022-08-19] MEDS: FUROSEMIDE 20 MG/2 ML VIAL IV SCH ×2 (10:33→21:46)
[2022-08-19] MEDS: ACCU-CHEK COMFORT CURVE STRIP VI SCH ×4 (12:54→22:07)
[2022-08-19] MEDS: INSULIN LANTUS (GLARGINE) 1 /0.01ml (100units/ml) SC SCH ×2 (12:55→21:56)
[2022-08-19] MEDS: InsuLIN REG 1unit/0.01ml Soln (100units/ml) SC SCH ×4 (12:56→22:07)
[2022-08-19] MEDS: FERROUS SULFATE 325mg EC TAB PO SCH (15:24)
[2022-08-19] MEDS: HYDROcodone-ACET 5/325MG TAB PO PRN (16:35)
[2022-08-19 17:00] VITALS: BP 121/61
[2022-08-19] MEDS: ATORVASTATIN 20 MG TAB PO SCH (21:47)
[2022-08-19 22:00] VITALS: BP 122/71
[2022-08-20] MEDS: ALBUTEROL SULF 2.5 MG/0.5ML(0.5%) NEB SOLN NEB SCH ×4 (02:10→14:23)
[2022-08-20] MEDS: IPRATROPIUM BROM 0.5 MG/2.5ML INH SOL NEB SCH ×4 (02:10→14:23)
[2022-08-20 04:58] VITALS: BP 113/53
[2022-08-20] MEDS: INSULIN LANTUS (GLARGINE) 1 /0.01ml (100units/ml) SC SCH (06:22)
[2022-08-20] MEDS: InsuLIN REG 1unit/0.01ml Soln (100units/ml) SC SCH ×3 (06:24→17:00)
[2022-08-20] MEDS: FERROUS SULFATE 325mg EC TAB PO SCH ×2 (06:26→17:00)
[2022-08-20] MEDS: ACCU-CHEK COMFORT CURVE STRIP VI SCH ×3 (06:28→17:00)
[2022-08-20 09:00] VITALS: BP 113/79
[2022-08-20] MEDS ORDERED: FURO1TAB31 PO (10:34)
[2022-08-20] MEDS ORDERED: BLOO-169 XX (10:34)
[2022-08-20] MEDS ORDERED: GLUC-224 VI (10:39)
[2022-08-20] MEDS ORDERED: LANC-347 XX (10:39)
[2022-08-20] MEDS ORDERED: FUROSEMIDE 40 MG TAB PO ONE (11:15)
[2022-08-20] MEDS: METOPROLOL SUCCINATE XL 50 MG TAB PO SCH (12:01)
[2022-08-20] MEDS: ASPirin-EC 81 mg tab PO SCH (12:07)
[2022-08-20] MEDS: GABAPENTIN 300 MG CAP PO SCH (12:08)
[2022-08-20] MEDS: LOSARTAN POTASSIUM 50 MG TAB PO SCH (12:08)
[2022-08-20] MEDS: ENOXAPARIN SOD 40 MG/0.4 ML SYRINGE SC SCH (12:09)
[2022-08-20] MEDS: CARVEDILOL 12.5 MG TAB PO SCH (12:09)
[2022-08-20 13:00] VITALS: BP 156/78
[2022-08-20 14:24] VITALS: BP 113/79
== END 2022-08-20 16:30 | disposition home or self-care (01) | DRG 194 ==
LOC: ER 14:43 → OVERFLOW 16:59 → CENTRAL 22:43
PROVIDERS: ADMIT Nurse Practitioner Family; ATTEND Internal Medicine
DX: I13.0 Hypertensive heart and chronic kidney disease with heart failure and stage 1 through stage 4 chronic kidney disease, or unspecified chronic kidney disease (principal); E11.22 Type 2 diabetes mellitus with diabetic chronic kidney disease; J44.1 Chronic obstructive pulmonary disease with (acute) exacerbation; D64.9 Anemia, unspecified; E66.01 Morbid (severe) obesity due to excess calories; E78.5 Hyperlipidemia, unspecified; R09.02 Hypoxemia; N18.9 Chronic kidney disease, unspecified; Z68.42 Body mass index [BMI] 45.0-49.9, adult; Z86.73 Personal history of transient ischemic attack (TIA), and cerebral infarction without residual deficits; I25.2 Old myocardial infarction; Z90.49 Acquired absence of other specified parts of digestive tract; I50.41 Acute combined systolic (congestive) and diastolic (congestive) heart failure
CPT/HCPCS: 36415; 71045; 80053; 80061; 81001; 82962; 83036; 83880; 84443; 84484; 85025; 85610; 85730; 86803; 87081; 87340; 93005; 94640; 96372; 96374; G0378; J1815